=== PATIENT | female | born 1990 | race Caucasian/White ===

== ENCOUNTER 2016-12-09 00:20 | Observation (INO) | payer MEDICARE, MEDICAID ==
--- NOTE | 2016-12-09 00:37 | EDM.PDOC ---
ED HPI GENERAL MEDICAL PROBLEM - General Chief Complaint: General Stated Complaint: Seizures Time Seen by Provider: 12/09/16 00:26 Source of Information: Reports: EMS, EMS Notes Reviewed, RN, RN Notes Reviewed History Limitations: Reports: No Limitations - History of Present Illness INITIAL COMMENTS - FREE TEXT/NARRATIVE: Patient presents to the emergency room at [facility] via ambulance after she had an unwitnessed seizure at home. The patient states about one half hour prior to presentation, she was laying in bed an elderly nauseated. The patient states that she did vomit and started having seizure-like activity. The patient states she is not sure how long the seizure lasted. Patient states she called for help from her caregivers. EMS was then called. The patient states she has a long-standing history of seizures. She states she has several seizures per year. The patient is currently taking Dilantin and Trileptal for her seizures. The patient states she takes her medications as directed. The patient states she has not missed a dose. The patient currently denies any headache. The patient denies any visual field disturbances. The patient only complains of a little bit of back pain which is chronic. The patient states she's had trouble with acid reflux which has developed a small cough. No other focal neurological deficits. Patient denies any chest pain. No shortness of breath. The patient states she does still feel nauseated. Onset Date: 12/08/16 - Related Data Allergies Allergy/AdvReac Type Severity Reaction Status Date / Time No Known Drug Allergies Allergy Other Verified 06/30/16 08:16 Home Meds: Home Meds ARIPiprazole [Abilify] 1 mg PO BEDTIME 11/12/14 [History] Calcium Carbonate [Calcium] 500 mg PO BID 11/12/14 [History] Nitrofurantoin Macrocrystal [Nitrofurantoin] 100 mg PO BEDTIME 11/12/14 [History ] OXcarbazepine [Oxcarbazepine] 900 mg PO BID 11/12/14 [History] Potassium Chloride [Klor-Con M20] 20 meq PO DAILY 11/12/14 [History] Cranberry 1 each PO BEDTIME 01/03/16 [History] Ergocalciferol (Vitamin D2) [Vitamin D2] 2,000 unit PO DAILY 01/03/16 [History] Multivitamin/Iron/Folic Acid [Sentry Tablet] 1 each PO DAILY 01/03/16 [History] Sennosides/Docusate Sodium [Senna Plus Tablet] 1 tab PO BID 01/04/16 [History] Phenytoin 100 mg PO TID #30 cap.er 01/05/16 [Rx] Mirtazapine [Remeron] 30 mg PO BEDTIME 06/30/16 [History] busPIRone [Buspar] 10 mg PO BID 06/30/16 [History] Past Medical History Other HEENT History: legally blind. 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 kyphosis. lordosis. spinal tumors causing spastic quadriparesis Neurological History: Reports: Seizure Other Neuro History: mild mental retardation Other Psychiatric History: mild MR - Past Surgical History Other Neurological Surgeries/Procedures: Brain shunt. Social & Family History - Tobacco Use Smoking Status *Q: Unknown Ever Smoked Used Tobacco, but Quit: No Second Hand Smoke Exposure: No - Alcohol Use Days Per Week of Alcohol Use: 1 Number of Drinks Per Day: 1 Total Drinks Per Week: 1 - Recreational Drug Use Recreational Drug Use: No ED ROS GENERAL - Review of Systems Review Of Systems: See Below Constitutional: Reports: Weakness. Denies: Fever, Chills Respiratory: Reports: Cough. Denies: Shortness of Breath Cardiovascular: Denies: Chest Pain, Palpitations GI/Abdominal: Reports: Nausea, Vomiting. Denies: Abdominal Pain, Diarrhea Skin: Reports: No Symptoms Neurological: Reports: Seizure. Denies: Dizziness, Headache, Numbness, Tingling ED EXAM, GENERAL - Physical Exam Exam: See Below Exam Limited By: No Limitations General Appearance: Alert, No Apparent Distress Eye Exam: Bilateral Eye: EOMI, Normal Inspection, PERRL Head: Atraumatic, Normocephalic Respiratory/Chest: No Respiratory Distress, Lungs Clear, Normal Breath Sounds Cardiovascular: Normal Peripheral Pulses, Regular Rate, Rhythm Peripheral Pulses: 2+: Radial (L), Radial (R) GI/Abdominal: Normal Bowel Sounds, Soft, Non-Tender Extremities: Normal Inspection Neurological: Alert, Oriented Skin Exam: Warm, Dry, Intact, Normal Color, No Rash EKG INTERPRETATION EKG Date: 12/09/16 Time: 01:51 Rhythm: NSR Rate (beats/min): 115 Nursery: normal P-wave: present QRS: normal ST-T: normal QT: normal MD/PQ Interval: 0.18 Comparison: NA - no prior EKG EKG Interpretation Comments: Sinus Tachycardia Nonspecific T wave abnormality Course - Orders/Labs/Meds Orders: Active Orders 24 hr Category Date Time Status EKG 12 Lead [EKG Documentation Completion] [RC] STAT Care 12/09/16 00:40 Active Head wo Cont [CT] Stat Exams 12/09/16 00:45 Taken Sodium Chloride 0.9% [Normal Saline] 1,000 ml Med 12/09/16 00:45 Active IV ASDIRECTED Sodium Chloride 0.9% [Saline Flush] Med 12/09/16 00:40 Active 10 ml FLUSH ASDIRECTED PRN Peripheral IV Insertion Adult [OM.PC] Routine Oth 12/09/16 00:40 Ordered Medication Orders Sodium Chloride (Normal Saline) 1,000 mls @ 999 mls/hr IV ASDIRECTED CARLOS Last Infusion: 12/09/16 01:40 Dose: 0 mls/hr Admin: 12/09/16 00:55 Dose: 999 mls/hr Sodium Chloride (Saline Flush) 10 ml FLUSH ASDIRECTED PRN PRN Reason: Keep Vein Open Labs: Laboratory Tests 12/09/16 12/09/16 Range/Units 00:40 00:40 WBC 11.4 H (4.0-10.0) x10^3/uL RBC 4.35 (4.00-5.50) x10^6/uL Hgb 13.9 (12.0-16.0) g/dL Hct 38.6 (33.0-47.0) % MCV 88.7 D (78.0-93.0) fL MCH 32.0 (26.0-32.0) pg MCHC 36.0 (32.0-36.0) g/dL RDW Coeff of Prerna 11.7 (10.0-15.0) % Plt Count 185 (130-400) x10^3/uL Neut % (Auto) 74.4 (50.0-80.0) % Lymph % (Auto) 14.7 L (25.0-50.0) % [place] % (Auto) 9.7 (2.0-11.0) % Eos % (Auto) 1.0 (0.0-4.0) % Baso % (Auto) 0.2 (0.2-1.2) % Sodium 133 L (136-145) mmol/L Potassium 3.8 (3.5-5.1) mmol/L Chloride 98 (98-107) mmol/L Carbon Dioxide 19 L (21-32) mmol/L BUN 15 (7-18) mg/dL Creatinine 0.7 (0.55-1.02) mg/dL Est Cr Clr Drug Dosing TNP Estimated GFR (MDRD) > 60 Glucose 139 H (74-106) mg/dL Calcium 8.6 (8.5-10.1) mg/dL Phenytoin 12 (10-20) ug/mL Meds: Medications Generic Name Dose Route Start Last Admin Trade Name Freq PRN Reason Stop Dose Admin Sodium Chloride 1,000 mls @ 999 mls/hr 12/09/16 00:45 12/09/16 01:40 Normal Saline IV Infused ASDIRECTED CARLOS Infusion Sodium Chloride 10 ml 12/09/16 00:40 Saline Flush FLUSH ASDIRECTED PRN Keep Vein Open Discontinued Medications Generic Name Dose Route Start Last Admin Trade Name Freq PRN Reason Stop Dose Admin Ketorolac Tromethamine 30 mg 12/09/16 00:59 12/09/16 01:30 Toradol IVPUSH 12/09/16 01:00 30 mg ONETIME ONE Administration Ondansetron HCl 4 mg 12/09/16 01:00 12/09/16 01:28 Zofran IVPUSH 12/09/16 01:01 4 mg ONETIME ONE Administration - Radiology Interpretation Free Text/Narrative:: See scanned report in EMR CT Results Date: 12/09/16 CT Results Time: 02:08 Departure - Departure Time of Disposition: 02:11 Disposition: Home, Self-Care 01 Condition: good Clinical Impression: Seizure disorder - Discharge Information Instructions: Epilepsy Referrals: Seamus Givens MD [Physician] - Forms: ED Department Discharge Additional Instructions: 1. Stay well hydrated and rest 2. All of your tests were normal 3. No change with any medications, continue same without changes 4. Recommend seeing Dr. Givens in the clinic for a follow up - Problem List Review Problem List Initiated/Reviewed/Updated: Yes - My Orders Last 24 Hours: My Active Orders 12/09/16 00:40 EKG 12 Lead [EKG Documentation Completion] [RC] STAT Sodium Chloride 0.9% [Saline Flush] 10 ml FLUSH ASDIRECTED PRN Peripheral IV Insertion Adult [OM.PC] Routine 12/09/16 00:45 Head wo Cont [CT] Stat Sodium Chloride 0.9% [Normal Saline] 1,000 ml IV ASDIRECTED - Assessment/Plan Last 24 Hours: My Active Orders 12/09/16 00:40 EKG 12 Lead [EKG Documentation Completion] [RC] STAT Sodium Chloride 0.9% [Saline Flush] 10 ml FLUSH ASDIRECTED PRN Peripheral IV Insertion Adult [OM.PC] Routine 12/09/16 00:45 Head wo Cont [CT] Stat Sodium Chloride 0.9% [Normal Saline] 1,000 ml IV ASDIRECTED
[2016-12-09] MEDS ORDERED: Sodium Chloride 0.9% 10 ML Syringe FLUSH PRN ×2 (00:40→04:18)
[2016-12-09] MEDS ORDERED: Sodium Chloride 0.9% 1,000 ML IV SCH ×2 (00:45→04:30)
[2016-12-09] MEDS ORDERED: Ketorolac 30 MG/ML SDV IVPUSH ONE (00:59)
[2016-12-09] MEDS ORDERED: Ondansetron 4 MG/2 ML SDV IVPUSH ONE (01:00)
[2016-12-09] MEDS ORDERED: LORazepam 2 MG/ML MDV IVPUSH PRN (04:18)
[2016-12-09] MEDS ORDERED: Ondansetron 4 MG/2 ML SDV IV PRN (04:26)
--- NOTE | 2016-12-09 04:55 | PCM.HP ---
H&P History of Present Illness - General Date of Service: 12/09/16 Admit Problem/Dx: Admission Diagnosis/Problem Admission Diagnosis/Problem Seizure disorder Nausea & Vomiting R/O Aspiration Source of Information: EMS, EMS Notes Reviewed, Old Records, RN, RN Notes Reviewed History Limitations: Reports: Altered Mental Status - History of Present Illness Initial Comments - Free Text/Narative: 12/09/2016 03:52 History is obtained from the EMS crew and the patient's caregiver. The patient was seen by me in the emergency room approximately one hour prior to the patient's current presentation. The patient had been seen in the emergency room for an unwitnessed seizure. The patient's head CT was negative for any acute intracranial process. The patient's blood work was essentially normal outside of a sodium of 133. The patient's Dilantin level was therapeutic at 12. Therefore, the patient was discharged home. According to the EMS crew shortly after the patient returned home, she apparently had a 13 minute seizure, unwitnessed. According to the caregiver, the patient was being checked on when the seizure occurred. The caregiver states that the patient had some sort of oral discharge. EMS was then called. When EMS arrived, the patient was post-ictal and brought to the emergency room. Since the patient was already seen in the emergency room, the patient is a direct admission to the floor. During the patient's ER visit, she did state that she has several seizures per year. The patient is currently taking Dilantin and Trileptal on a daily basis. The patient states that she does not miss any doses. The patient states that she has taken all of her seizure medication today. Onset of Symptoms: Reports: Today Symptom Onset Date: 12/09/16 Symptom Onset Time: 03:00 low back Pain Score (Numeric/FACES): 3 - Related Data Allergies/Adverse Reactions: Allergies Allergy/AdvReac Type Severity Reaction Status Date / Time No Known Drug Allergies Allergy Other Verified 12/09/16 04:22 Home Medications: Home Meds ARIPiprazole [Abilify] 1 mg PO BEDTIME 11/12/14 [History] Calcium Carbonate [Calcium] 500 mg PO BID 11/12/14 [History] Nitrofurantoin Macrocrystal [Nitrofurantoin] 100 mg PO BEDTIME 11/12/14 [History ] OXcarbazepine [Oxcarbazepine] 900 mg PO BID 11/12/14 [History] Potassium Chloride [Klor-Con M20] 20 meq PO DAILY 11/12/14 [History] Cranberry 1 each PO BEDTIME 01/03/16 [History] Ergocalciferol (Vitamin D2) [Vitamin D2] 2,000 unit PO DAILY 01/03/16 [History] Multivitamin/Iron/Folic Acid [Sentry Tablet] 1 each PO DAILY 01/03/16 [History] Sennosides/Docusate Sodium [Senna Plus Tablet] 1 tab PO BID 01/04/16 [History] Phenytoin 100 mg PO TID #30 cap.er 01/05/16 [Rx] Mirtazapine [Remeron] 30 mg PO BEDTIME 06/30/16 [History] busPIRone [Buspar] 10 mg PO BID 06/30/16 [History] Past Medical History Other HEENT History: legally blind. 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 kyphosis. lordosis. spinal tumors causing spastic quadriparesis Neurological History: Reports: Seizure Other Neuro History: mild mental retardation - Past Surgical History Other Neurological Surgeries/Procedures: Brain shunt. Social & Family History - Family History Family Medical History: Noncontributory - Tobacco Use Smoking Status *Q: Never Smoker Tobacco Use Within Last Twelve Months: No Second Hand Smoke Exposure: No - Alcohol Use Days Per Week of Alcohol Use: 0 Number of Drinks Per Day: 0 Total Drinks Per Week: 0 Alcohol Use Frequency: Socially - Recreational Drug Use Recreational Drug Use: No Drug Use in Last 12 Months: No - Living Situation & Occupation Living situation: Reports: Extended Care Facility Occupation: Disabled H&P Review of Systems - Review of Systems: Review Of Systems: ROS reveals no pertinent complaints other than HPI. Exam - Exam Exam: See Below - Vital Signs Vital Signs: Last Vital Signs Temp 37.1 C 12/09/16 00:20 Pulse 124 H 12/09/16 00:20 Resp 20 12/09/16 00:20 BP 115/78 12/09/16 00:20 Pulse Ox 96 12/09/16 00:20 Weight: 59.874 kg - Exam Quality Assessment: Supplemental Oxygen, Urinary Catheter General: Lethargic HEENT: Conjunctiva Clear, PERRLA Neck: Supple Lungs: Clear to Auscultation, Normal Respiratory Effort Cardiovascular: Regular Rate, Regular Rhythm, Normal S1, Normal S2 Abdomen: Soft, Hypoactive Bowel Sounds Extremities: Normal Inspection Peripheral Pulses: 2+: Radial (L), Radial (R) Skin: Warm, Dry, Intact Neuro Extensive - Mental Status: Slow Response to Commands, Other (Patient is able to follow commands but somewhat slow. The patient is aware of her surroundings and does that she is in the hospital. The patient does not remember the seizure.) - Patient Data Result Diagrams: 12/09/16 00:40 12/09/16 00:40 *Q Meaningful Use (ADM) - VTE *Q VTE Criteria *Q: VTE Mechanical Contraindications *Q: Confused Consciousness - Stroke *Q Stroke Criteria *Q: - AMI *Q AMI Criteria *Q: - Problem List (1) Seizure disorder SNOMED Code(s): 264258655 ICD Code: G40.909 - EPILEPSY, UNSP, NOT INTRACTABLE, WITHOUT STATUS EPILEPTICUS Status: Acute Priority: High Current Visit: Yes Onset Date: ~12/09/16 (2) Hyponatremia SNOMED Code(s): 90366543 ICD Code: E87.1 - HYPO-OSMOLALITY AND HYPONATREMIA Status: Chronic Priority: Medium Current Visit: Yes (3) Aspiration of vomitus SNOMED Code(s): 07428135 ICD Code: T17.910A - GASTRIC CONTENTS IN RESP TRACT, PART UNSP CAUSE ASPHYX, INIT Status: Acute Priority: High Current Visit: Yes Onset Date: ~ Qualifiers: Encounter type: initial encounter Qualified Code(s): T17.910A - Gastric contents in respiratory tract, part unspecified causing asphyxiation, initial encounter Problem List Initiated/Reviewed/Updated: Yes Orders Last 24hrs: Active Orders 24 hr Category Date Time Status Patient Status [ADT] Routine ADT 12/09/16 04:26 Active Aspiration Precautions [RC] ASDIRECTED Care 12/09/16 04:24 Active Height and Weight [RC] UPON Care 12/09/16 04:26 Active Insert Mejia Catheter [Insert Urinary Catheter] [OM.PC] Care 12/09/16 04:30 Ordered Q24H Intake and Output [RC] QSHIFT Care 12/09/16 04:27 Active May Shower [RC] ASDIRECTED Care 12/09/16 04:26 Active Oxygen Therapy [RC] PRN Care 12/09/16 04:26 Active Up With Assistance [RC] ASDIRECTED Care 12/09/16 04:26 Active Urinary Catheter Assessment [RC] ASDIRECTED Care 12/09/16 04:24 Active VTE/DVT Education [RC] PER UNIT ROUTINE Care 12/09/16 04:26 Active Vital Signs [RC] Q4H Care 12/09/16 04:26 Active 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 OPERATOR Evaluation and Treatment [CONS] Routine Cons 12/09/16 04:26 Active Fluid Restriction [DIET] Diet 12/09/16 Breakfast Active Chest 1V Frontal [CR] Routine Exams 12/09/16 07:00 Ordered BASIC METABOLIC PANEL,BMP [CHEM] Routine Lab 12/09/16 05:11 Ordered CBC WITH AUTO DIFF [HEME] Routine Lab 12/09/16 05:11 Ordered CRP [C-REACTIVE PROTEIN] [CHEM] Routine Lab 12/09/16 05:11 Ordered CULTURE BLOOD [BC] Stat Lab 12/09/16 05:11 Ordered CULTURE BLOOD [BC] Stat Lab 12/09/16 05:11 Ordered LACTIC ACID [CHEM] Routine Lab 12/09/16 05:11 Ordered STREP SCRN A RAPID W CULT CONF [RM] Routine Lab 12/09/16 05:11 Uncollected UA W/MICROSCOPIC [URIN] Routine Lab 12/09/16 05:11 Uncollected LORazepam [Ativan] Med 12/09/16 04:18 Active 1 mg IVPUSH Q1H PRN Ondansetron [Zofran] Med 12/09/16 04:26 Active 4 mg IV Q6H PRN Pantoprazole [ProTONIX IV] Med 12/09/16 05:00 Active 40 mg IVPUSH Q12H Sodium Chloride 0.9% [Normal Saline] 1,000 ml Med 12/09/16 04:30 Active IV ASDIRECTED Sodium Chloride 0.9% [Saline Flush] Med 12/09/16 04:18 Active 10 ml FLUSH ASDIRECTED PRN Blood Culture x2 Reflex Set [OM.PC] Stat Oth 12/09/16 05:11 Ordered Peripheral IV Insertion Adult [OM.PC] Routine Oth 12/09/16 04:18 Ordered Seizure Precautions [OM.PC] Routine Oth 12/09/16 04:24 Ordered Resuscitation Status Routine Resus Stat 12/09/16 04:26 Ordered Medication Orders Sodium Chloride (Normal Saline) 1,000 mls @ 999 mls/hr IV ASDIRECTED CARLOS Last Infusion: 12/09/16 01:40 Dose: 0 mls/hr Admin: 12/09/16 00:55 Dose: 999 mls/hr Sodium Chloride (Normal Saline) 1,000 mls @ 100 mls/hr IV ASDIRECTED CARLOS Lorazepam (Ativan) 1 mg IVPUSH Q1H PRN PRN Reason: Seizures Ondansetron HCl (Zofran) 4 mg IV Q6H PRN PRN Reason: Nausea/Vomiting Pantoprazole Sodium (Protonix Iv) 40 mg IVPUSH Q12H CARLOS Sodium Chloride (Saline Flush) 10 ml FLUSH ASDIRECTED PRN PRN Reason: Keep Vein Open Sodium Chloride (Saline Flush) 10 ml FLUSH ASDIRECTED PRN PRN Reason: Keep Vein Open Assessment/Plan Comment:: 26-year-old female with a past medical history of seizures, mild mental retardation, hydrocephalus, is admitted to the observation unit for seizure activity, rule out aspiration, hyponatremia. We will not repeat a CT scan of the head since year he had one earlier. We will place the patient on IV fluid for rehydration. The patient will be on seizure precautions. We will place a Mejia catheter and do to incontinence. We will recheck abnormal lab work in the morning along with a UA. We will have the patient seen by speech therapy. The patient is a full code. The patient will be transferred to a higher level of care should the need arise. We will continue all home medications without any changes. The patient will have lorazepam as needed for any seizure activity.
[2016-12-09] MEDS ORDERED: Pantoprazole 40 MG Vial IVPUSH SCH (05:00)
[2016-12-09 06:56] LABS: CHLORIDE,CL 102 mmol/L (98-107); SODIUM,NA 135 mmol/L (136-145)
[2016-12-09] MEDS ORDERED: Penicillin G Benzathine/Procaine 900-300 1.2 Millunits/2 ML Syringe IM ONE (07:26)
[2016-12-09] MEDS ORDERED: Ampicillin 1 GM in Sodium Chloride 0.9% 100 ML IV ONE (07:27)
[2016-12-09] MEDS ORDERED: Potassium Chloride 20 MEQ Tab.ER PO SCH (08:00)
[2016-12-09] MEDS ORDERED: OXcarbazepine 300 MG Tab PO SCH (08:00)
[2016-12-09] MEDS ORDERED: ARIPIPRAZOLE 5 MG PO SCH (08:00)
[2016-12-09] MEDS: Phenytoin 100 MG Cap.ER PO SCH ×2 (09:33→11:39)
[2016-12-09 10:25] VITALS: BP 98/65
[2016-12-09] MEDS ORDERED: Nitrofurantoin Macrocrystal 50 MG Cap PO SCH (20:00)
[2016-12-09] MEDS ORDERED: PHENYTOIN PO SCH (20:00)
--- NOTE | 2016-12-09 23:26 | DISCH ---
ADMITTING DIAGNOSES: 1. Acute on chronic seizure activity. 2. Mild hyponatremia. DISCHARGE DIAGNOSES: 1. Acute on chronic seizure activity. 2. Group A strep pharyngitis. ADMITTING PROVIDER: MIMI Spivey. DISCHARGING PROVIDER: Ramon Aaron PA-C. SUBJECTIVE: The patient was admitted early this morning with following 2 seizures, each 1 lasting greater than 10 minutes. She does have a history of recurrent seizure activity and has a history of a low pressure hydrocephalus and neurofibromatosis. She does reside in a halfway. Protocol is for the patient to be brought to the hospital if she has a seizure that lasts greater than 5 minutes. The patient was hyponatremic and started on normal saline and her sodium has improved. She does have a history of chronic hyponatremia. She has not exhibited any further seizure activity since the onset of these episodes. She was found to have strep pharyngitis, which likely lowered her seizure threshold. Again, she did not exhibit any seizure activity since the onset of the symptoms earlier this morning and last evening. PHYSICAL EXAMINATION: General: This is a 26-year-old female patient, who is in no acute distress. Vital Signs: Blood pressure is 106/58, heart rate is 101, temperature is 37.2, respiratory rate is 20, and O2 saturations 98%. Skin: Warm, pink, and dry. HEENT: Eyes, PERRLA. Extraocular movements are intact. Lungs: Clear to auscultation. Heart: Regular rate and rhythm. Abdomen: Soft, nontender. Neurologic: She is alert and answers all questions appropriately. Her speech is fluent. She has a normal strength. Her motor function in both her upper and lower extremities is unchanged from her normal. LABORATORY DATA: WBCs 10.7, hemoglobin is 13.0, platelets 188, sodium is 135, potassium is 4.0, chloride is 102, bicarb is 24, BUN is 13, creatinine is 0.5. GFR is greater than 60. Glucose is 100. Lactic acid is 1.4, calcium is 8.2, C- reactive protein is 4.2. Urinalysis was obtained and was negative. Chest x-ray did not reveal any acute pathology and then again the patient's strep pharyngitis was positive this morning. DISCHARGE CONDITION: Good. DISPOSITION: Back to the halfway. DISCHARGE INSTRUCTIONS: Return to the ER if the patient exhibits any prolonged seizure activity. They were advised that she is at increased risk for seizure activity in the next several days, as she does have strep pharyngitis, which will of lower her seizure threshold and put her at risk for recurrent seizure activity. DISCHARGE MEDICATIONS: Continue home medications. In addition, we will add amoxicillin 500 mg twice daily for 10 days. FOLLOWUP: In 1 week in clinic. MWK: 12/09/2016 15:25:55 MODL: 12/09/2016 23:21:45 /[id number]
== END 2016-12-09 13:55 ==
LOC: VM.ED 00:20 → VM.MS 03:29 → UNDOADMOB 03:29 → VM.ED 03:52 → VM.MS 04:04 → UNDOADMOB 04:04 → UNDODISOB 13:55 → EDSTATUS 14:00
PROVIDERS: ADMIT Nurse Practitioner Family; ATTEND Nurse Practitioner Family
DX: R56.9 Unspecified convulsions (principal); J02.0 Streptococcal pharyngitis; B95.0 Streptococcus, group A, as the cause of diseases classified elsewhere; E87.1 Hypo-osmolality and hyponatremia; T17.910A Gastric contents in respiratory tract, part unspecified causing asphyxiation, initial encounter; Z79.2 Long term (current) use of antibiotics; Z79.899 Other long term (current) drug therapy; G40.909 Epilepsy, unspecified, not intractable, without status epilepticus
CPT/HCPCS: 71010; 80048; 81001; 83605; 85025; 86140; 87040; 87880; 92610; 96372; 96374; 99235; A9270; C9113; G0378; J0558; 36415; 70450; 80185; 93005; 96361; 96375; 99285; J1885; J2405; J7030

== ENCOUNTER 2016-12-09 00:20 | Emergency (ER) | payer MEDICARE, MEDICAID ==
[~2016-12-09 00:20] MED LIST: Ketorolac 30 MG/ML SDV IVPUSH ONE; Ondansetron 4 MG/2 ML SDV IVPUSH ONE; Sodium Chloride 0.9% 1,000 ML IV SCH; Sodium Chloride 0.9% 10 ML Syringe FLUSH PRN
[2016-12-09 01:16] LABS: CHLORIDE,CL 98 mmol/L (98-107); SODIUM,NA 133 mmol/L (136-145)
== END 2016-12-09 02:05 | disposition home or self-care (01) ==
LOC: VM.ED 00:20
DX: G40.909 Epilepsy, unspecified, not intractable, without status epilepticus (principal); Z79.899 Other long term (current) drug therapy
CPT/HCPCS: 36415; 70450; 80048; 80185; 85025; 93005; 96361; 96374; 96375; 99285; J1885; J2405; J7030; 71010

== ENCOUNTER 2017-05-04 02:40 | Emergency (ER) | payer MEDICARE, MEDICAID ==
[2017-05-04 02:50] VITALS: BP 116/78
[2017-05-04] MEDS ORDERED: Sodium Chloride 0.9% 10 ML Syringe FLUSH PRN (02:59)
[2017-05-04] MEDS ORDERED: LORazepam 2 MG/ML SDV IVPUSH ONE (03:00)
[2017-05-04 04:00] LABS: CHLORIDE,CL 101 mmol/L (98-107); SODIUM,NA 136 mmol/L (136-145)
--- NOTE | 2017-05-04 04:55 | EDM.PDOC ---
ED HPI GENERAL MEDICAL PROBLEM - General Chief Complaint: General Stated Complaint: Seizure Time Seen by Provider: 05/04/17 02:45 Source of Information: Reports: Patient, Other (longterm staff) History Limitations: Reports: No Limitations - History of Present Illness INITIAL COMMENTS - FREE TEXT/NARRATIVE: Pt. had a "full body" seizure lasting approx. 6 min. 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 Pt. has having issues with hyponatremia secondary to oxcarbazepine, but this has resolved since it was decreased (an unknown antidepressant was also discontinued due to hyponatremia as well). Staff states that she was asleep at onset of the seizure and did not appear to be postictal. She states that she did not recently strike her head. She has not been experiencing any fever, chills, or other complaints. Onset: Today Location: Reports: Generalized - Related Data Allergies Allergy/AdvReac Type Severity Reaction Status Date / Time No Known Drug Allergies Allergy Other Verified 05/04/17 02:50 Home Meds: Home Meds Calcium Carbonate [Calcium] 500 mg PO BID 11/12/14 [History] Nitrofurantoin Macrocrystal [Nitrofurantoin] 100 mg PO BEDTIME 11/12/14 [History ] OXcarbazepine [Oxcarbazepine] 600 mg PO BID 11/12/14 [History] Potassium Chloride [Klor-Con M20] 20 meq PO DAILY 11/12/14 [History] Cranberry 1 each PO BEDTIME 01/03/16 [History] Ergocalciferol (Vitamin D2) [Vitamin D2] 2,000 unit PO DAILY 01/03/16 [History] Multivitamin/Iron/Folic Acid [Sentry Tablet] 1 each PO DAILY 01/03/16 [History] Sennosides/Docusate Sodium [Senna Plus Tablet] 1 tab PO BID 01/04/16 [History] Phenytoin 100 mg PO TID #30 cap.er 01/05/16 [Rx] ARIPiprazole [Abilify] 5 mg PO DAILY 12/09/16 [History] Phenytoin [Dilantin] 60 mg PO BEDTIME 12/09/16 [History] Polyethylene Glycol 3350 [MiraLAX] 17 gm PO ASDIRECTED 12/09/16 [History] Past Medical History HEENT History: Reports: Impaired Vision Other HEENT History: legally blind. 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 kyphosis. lordosis. spinal tumors causing spastic quadriparesis Neurological History: Reports: Seizure Other Neuro History: mild mental retardation Other Psychiatric History: mild MR - Past Surgical History Other Neurological Surgeries/Procedures: Brain shunt. Social & Family History - Family History Family Medical History: Noncontributory - Tobacco Use Smoking Status *Q: Never Smoker Used Tobacco, but Quit: No Second Hand Smoke Exposure: No - Alcohol Use Days Per Week of Alcohol Use: 0 Number of Drinks Per Day: 0 Total Drinks Per Week: 0 - Recreational Drug Use Recreational Drug Use: No Drug Use in Last 12 Months: No - Living Situation & Occupation Living situation: Reports: Extended Care Facility Occupation: Disabled ED ROS GENERAL - Review of Systems Review Of Systems: See Below Constitutional: Reports: No Symptoms HEENT: Reports: No Symptoms Respiratory: Reports: No Symptoms Cardiovascular: Reports: No Symptoms Endocrine: Reports: No Symptoms GI/Abdominal: Reports: No Symptoms : Reports: No Symptoms Musculoskeletal: Reports: No Symptoms Skin: Reports: No Symptoms Neurological: Reports: Seizure (6 min., full body seizure) Psychiatric: Reports: No Symptoms Hematologic/Lymphatic: Reports: No Symptoms Immunologic: Reports: No Symptoms ED EXAM, GENERAL - Physical Exam Exam: See Below Exam Limited By: No Limitations General Appearance: Alert Eye Exam: Bilateral Eye: EOMI, PERRL Ears: Normal External Exam, Hearing Grossly Normal Nose: Normal Inspection, Normal Mucosa, No Blood Throat/Mouth: Normal Inspection, Normal Lips, Normal Teeth, Normal Gums, Normal Oropharynx, Normal Voice, No Airway Compromise Head: Atraumatic, Normocephalic Neck: Normal Inspection, Supple, Non-Tender, Full Range of Motion Respiratory/Chest: No Respiratory Distress, Lungs Clear, Normal Breath Sounds, No Accessory Muscle Use, Chest Non-Tender Cardiovascular: Normal Peripheral Pulses, Regular Rate, Rhythm, No Edema, No JVD , No Murmur, No Rub GI/Abdominal: Normal Bowel Sounds, Soft, Non-Tender, No Organomegaly, No Distention, No Mass Extremities: Normal Inspection, Normal Range of Motion, Non-Tender, Normal Capillary Refill Neurological: Alert, Oriented, CN II-XII Intact, Normal Cognition, Normal Reflexes, No Motor/Sensory Deficits Psychiatric: Normal Affect, Normal Mood Skin Exam: Warm, Dry, Intact, Normal Color Lymphatic: No Adenopathy Course - Vital Signs Last Recorded V/S: Last Vital Signs Temp 36.4 C 05/04/17 02:41 Pulse 95 05/04/17 02:41 Resp 16 05/04/17 02:41 BP 116/78 05/04/17 02:41 Pulse Ox 97 05/04/17 02:41 - Orders/Labs/Meds Orders: Active Orders 24 hr Category Date Time Status Head wo Cont [CT] Stat Exams 05/04/17 02:55 Taken CULTURE BLOOD [BC] Stat Lab 05/04/17 03:27 Received CULTURE BLOOD [BC] Stat Lab 05/04/17 03:35 Received Sodium Chloride 0.9% [Saline Flush] Med 05/04/17 02:59 Active 10 ml FLUSH ASDIRECTED PRN Blood Culture x2 Reflex Set [OM.PC] Stat Oth 05/04/17 02:59 Ordered Peripheral IV Insertion Adult [OM.PC] Routine Oth 05/04/17 03:00 Ordered Medication Orders Sodium Chloride (Saline Flush) 10 ml FLUSH ASDIRECTED PRN PRN Reason: Keep Vein Open Labs: Laboratory Tests 05/04/17 05/04/17 05/04/17 Range/Units 03:27 03:27 03:27 WBC 5.9 (4.0-10.0) x10^3/uL RBC 4.25 (4.00-5.50) x10^6/uL Hgb 13.8 (12.0-16.0) g/dL Hct 38.0 (33.0-47.0) % MCV 89.4 (78.0-93.0) fL MCH 32.5 H (26.0-32.0) pg MCHC 36.3 H (32.0-36.0) g/dL RDW Coeff of Prerna 11.2 (10.0-15.0) % Plt Count 218 (130-400) x10^3/uL Neut % (Auto) 60.8 (50.0-80.0) % Lymph % (Auto) 26.9 (25.0-50.0) % [place] % (Auto) 10.3 (2.0-11.0) % Eos % (Auto) 1.5 (0.0-4.0) % Baso % (Auto) 0.5 (0.2-1.2) % Sodium 136 (136-145) mmol/L Potassium 4.1 (3.5-5.1) mmol/L Chloride 101 (98-107) mmol/L Carbon Dioxide 23 (21-32) mmol/L BUN 17 (7-18) mg/dL Creatinine 0.6 (0.55-1.02) mg/dL Est Cr Clr Drug Dosing TNP Estimated GFR (MDRD) > 60 Glucose 93 (74-106) mg/dL Lactic Acid 3.4 H (0.4-2.0) mmol/L Calcium 8.9 (8.5-10.1) mg/dL Corrected Calcium 9.30 (8.5-10.1) mg/dL Total Bilirubin 0.3 (0.2-1.0) mg/dL AST 15 (15-37) U/L ALT 41 (14-59) U/L Alkaline Phosphatase 133 H (46-116) U/L C-Reactive Protein < 0.2 (<=0.9) mg/dL Total Protein 6.6 (6.4-8.2) g/dL Albumin 3.5 (3.4-5.0) g/dL Globulin 3.1 Albumin/Globulin Ratio 1.13 Urine Color (YELLOW) Urine Appearance (CLEAR) Urine pH (5.0-8.0) Ur Specific [place] Urine Protein (NEGATIVE) mg/dL Urine Glucose (UA) (NEGATIVE) mg/dL Urine Ketones (NEGATIVE) mg/dL Urine Occult Blood (NEGATIVE) Urine Nitrite (NEGATIVE) Urine Bilirubin (NEGATIVE) Urine Urobilinogen (0.2) EU/dL Ur Leukocyte Esterase (NEGATIVE) Urine RBC (NOT SEEN) /HPF Urine WBC (NOT SEEN) /HPF Ur Squamous Epith Cells (NEGATIVE) /HPF Ur Renal Epithelial Cell (NEGATIVE) /HPF Urine Bacteria (NEGATIVE) /HPF Urine Mucus (NEGATIVE) /LPF Phenytoin 13 (10-20) ug/mL 05/04/17 Range/Units 03:55 WBC (4.0-10.0) x10^3/uL RBC (4.00-5.50) x10^6/uL Hgb (12.0-16.0) g/dL Hct (33.0-47.0) % MCV (78.0-93.0) fL MCH (26.0-32.0) pg MCHC (32.0-36.0) g/dL RDW Coeff of Prerna (10.0-15.0) % Plt Count (130-400) x10^3/uL Neut % (Auto) (50.0-80.0) % Lymph % (Auto) (25.0-50.0) % [place] % (Auto) (2.0-11.0) % Eos % (Auto) (0.0-4.0) % Baso % (Auto) (0.2-1.2) % Sodium (136-145) mmol/L Potassium (3.5-5.1) mmol/L Chloride (98-107) mmol/L Carbon Dioxide (21-32) mmol/L BUN (7-18) mg/dL Creatinine (0.55-1.02) mg/dL Est Cr Clr Drug Dosing Estimated GFR (MDRD) Glucose (74-106) mg/dL Lactic Acid (0.4-2.0) mmol/L Calcium (8.5-10.1) mg/dL Corrected Calcium (8.5-10.1) mg/dL Total Bilirubin (0.2-1.0) mg/dL AST (15-37) U/L ALT (14-59) U/L Alkaline Phosphatase (46-116) U/L C-Reactive Protein (<=0.9) mg/dL Total Protein (6.4-8.2) g/dL Albumin (3.4-5.0) g/dL Globulin Albumin/Globulin Ratio Urine Color Yellow (YELLOW) Urine Appearance Cloudy H (CLEAR) Urine pH 5.0 (5.0-8.0) Ur Specific [place] >=1.030 Urine Protein 30 H (NEGATIVE) mg/dL Urine Glucose (UA) Negative (NEGATIVE) mg/dL Urine Ketones Negative (NEGATIVE) mg/dL Urine Occult Blood Moderate H (NEGATIVE) Urine Nitrite Negative (NEGATIVE) Urine Bilirubin Negative (NEGATIVE) Urine Urobilinogen 0.2 (0.2) EU/dL Ur Leukocyte Esterase Negative (NEGATIVE) Urine RBC 40-50 H (NOT SEEN) /HPF Urine WBC 0-5 (NOT SEEN) /HPF Ur Squamous Epith Cells Moderate H (NEGATIVE) /HPF Ur Renal Epithelial Cell Rare H (NEGATIVE) /HPF Urine Bacteria Not seen (NEGATIVE) /HPF Urine Mucus Many H (NEGATIVE) /LPF Phenytoin (10-20) ug/mL Meds: Medications Generic Name Dose Route Start Last Admin Trade Name Jannie PRN Reason Stop Dose Admin Sodium Chloride 10 ml 05/04/17 02:59 Saline Flush FLUSH ASDIRECTED PRN Keep Vein Open Discontinued Medications Generic Name Dose Route Start Last Admin Trade Name Freanita PRN Reason Stop Dose Admin Lorazepam 1 mg 05/04/17 03:00 05/04/17 03:33 Ativan IVPUSH 05/04/17 03:01 1 mg ONETIME ONE Administration - Radiology Interpretation Free Text/Narrative:: CT brain without contrast was negative for acute pathology Departure - Departure Time of Disposition: 05:30 Disposition: DC/Tfer to [facility] 61 Condition: Good Clinical Impression: Seizure - Discharge Information Instructions: Seizure, Adult, [id number] Referrals: PCP,Unobtain [Primary Care Provider] - Forms: ED Department Discharge Additional Instructions: Ativan 0.5mg three times daily for 3 days Increase oxcarbazepine to 750mg twice daily Follow-up in clinic or with neurology in the next 7-10 days Return to ER if recurrence of seizures lasting longer than 5 min. - Problem List & Annotations (1) Seizure SNOMED Code(s): 98840122 Code(s): R56.9 - UNSPECIFIED CONVULSIONS Status: Acute Current Visit: Yes - My Orders Last 24 Hours: My Active Orders 05/04/17 02:55 Head wo Cont [CT] Stat 05/04/17 02:59 Sodium Chloride 0.9% [Saline Flush] 10 ml FLUSH ASDIRECTED PRN Blood Culture x2 Reflex Set [OM.PC] Stat 05/04/17 03:00 Peripheral IV Insertion Adult [OM.PC] Routine 05/04/17 03:27 CULTURE BLOOD [BC] Stat 05/04/17 03:35 CULTURE BLOOD [BC] Stat - Assessment/Plan Last 24 Hours: My Active Orders 05/04/17 02:55 Head wo Cont [CT] Stat 05/04/17 02:59 Sodium Chloride 0.9% [Saline Flush] 10 ml FLUSH ASDIRECTED PRN Blood Culture x2 Reflex Set [OM.PC] Stat 05/04/17 03:00 Peripheral IV Insertion Adult [OM.PC] Routine 05/04/17 03:27 CULTURE BLOOD [BC] Stat 05/04/17 03:35 CULTURE BLOOD [BC] Stat Assessment:: seizure activity Plan: Ativan 0.5mg three times daily for 3 days Increase oxcarbazepine to 750mg twice daily Follow-up in clinic or with neurology in the next 7-10 days Return to ER if recurrence of seizures lasting longer than 5 min.
== END 2017-05-04 05:50 ==
LOC: VM.ED 02:40
DX: R56.9 Unspecified convulsions (principal); Z79.899 Other long term (current) drug therapy
CPT/HCPCS: 36415; 70450; 80053; 80185; 81001; 83605; 85025; 86140; 87040; 96374; 99285; J2060; 99283-GF

== ENCOUNTER 2017-09-07 02:57 | Emergency (ER) | payer MEDICARE, MEDICAID ==
--- NOTE | 2017-09-07 03:11 | EDM.PDOC ---
ED HPI GENERAL MEDICAL PROBLEM - General Chief Complaint: Neurological Problem Stated Complaint: Seizure Time Seen by Provider: 09/07/17 03:05 Source of Information: Reports: Patient, Other History Limitations: Reports: No Limitations - History of Present Illness INITIAL COMMENTS - FREE TEXT/NARRATIVE: Patient is brought in via EMS after a seizure. She does have a time protocol for coming to the emergency department, however, this was not followed due to new staff not knowing the guidelines. She has no complaints other than that she is tired. She is post ictal. Normal procedures are to bring her to the ED if her seizure lasts for 5 minutes or more. She did recently have a nerve stimulator placed. Onset: Today, Sudden Location: Reports: Generalized Associated Symptoms: Reports: No Other Symptoms - Related Data Allergies Allergy/AdvReac Type Severity Reaction Status Date / Time No Known Drug Allergies Allergy Other Verified 09/07/17 03:28 Home Meds: Home Meds Calcium Carbonate [Calcium] 500 mg PO BID 11/12/14 [History] Nitrofurantoin Macrocrystal [Nitrofurantoin] 100 mg PO BEDTIME 11/12/14 [History ] OXcarbazepine [Oxcarbazepine] 600 mg PO BID 11/12/14 [History] Potassium Chloride [Klor-Con M20] 20 meq PO DAILY 11/12/14 [History] Cranberry 1 each PO BEDTIME 01/03/16 [History] Ergocalciferol (Vitamin D2) [Vitamin D2] 2,000 unit PO DAILY 01/03/16 [History] Multivitamin/Iron/Folic Acid [Sentry Tablet] 1 each PO DAILY 01/03/16 [History] Sennosides/Docusate Sodium [Senna Plus Tablet] 1 tab PO BID 01/04/16 [History] Phenytoin 100 mg PO TID #30 cap.er 01/05/16 [Rx] ARIPiprazole [Abilify] 5 mg PO DAILY 12/09/16 [History] Phenytoin [Dilantin] 60 mg PO BEDTIME 12/09/16 [History] Polyethylene Glycol 3350 [MiraLAX] 17 gm PO ASDIRECTED 12/09/16 [History] Past Medical History HEENT History: Reports: Impaired Vision Other HEENT History: legally blind. 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 kyphosis. lordosis. spinal tumors causing spastic quadriparesis Neurological History: Reports: Seizure Other Neuro History: mild mental retardation Other Psychiatric History: mild MR - Past Surgical History Other Neurological Surgeries/Procedures: Brain shunt. Social & Family History - Family History Family Medical History: Noncontributory - Tobacco Use Smoking Status *Q: Never Smoker Used Tobacco, but Quit: No Second Hand Smoke Exposure: No - Alcohol Use Days Per Week of Alcohol Use: 0 Number of Drinks Per Day: 0 Total Drinks Per Week: 0 - Recreational Drug Use Recreational Drug Use: No Drug Use in Last 12 Months: No - Living Situation & Occupation Living situation: Reports: Extended Care Facility Occupation: Disabled ED ROS GENERAL - Review of Systems Review Of Systems: See Below Constitutional: Reports: No Symptoms HEENT: Reports: No Symptoms Respiratory: Reports: No Symptoms Cardiovascular: Reports: No Symptoms Endocrine: Reports: No Symptoms GI/Abdominal: Reports: No Symptoms : Reports: No Symptoms Musculoskeletal: Reports: No Symptoms Skin: Reports: No Symptoms Neurological: Reports: No Symptoms Psychiatric: Reports: No Symptoms Hematologic/Lymphatic: Reports: No Symptoms Immunologic: Reports: No Symptoms - Physical Exam Exam: See Below Exam Limited By: No Limitations General Appearance: Alert, WD/WN, No Apparent Distress Eye Exam: Bilateral Eye: EOMI, PERRL Ears: Normal TMs Head Exam: Atraumatic, Normocephalic Neck: Normal Inspection, Supple, Non-Tender, Full Range of Motion Respiratory/Chest: No Respiratory Distress, Lungs Clear, Normal Breath Sounds, No Accessory Muscle Use, Chest Non-Tender Cardiovascular: Normal Peripheral Pulses, Regular Rate, Rhythm, No Edema, No Gallop, No JVD, No Murmur, No Rub GI/Abdominal: Normal Bowel Sounds, Soft, Non-Tender, No Organomegaly, No Distention, No Abnormal Bruit, No Mass Neuro Exam (Abbreviated): Alert, Oriented, CN II-XII Intact, Normal Cognition, Normal Gait, Normal Reflexes, No Motor/Sensory Deficits Extremities: Normal Inspection, Normal Range of Motion, Non-Tender, No Pedal Edema, Normal Capillary Refill Psychiatric: Normal Affect, Normal Mood Skin Exam: Warm, Dry, Intact, Normal Color, No Rash Course - Vital Signs Last Recorded V/S: Last Vital Signs Temp 37.3 C 09/07/17 02:57 Pulse 90 09/07/17 02:57 Resp 16 09/07/17 02:57 BP 109/68 09/07/17 02:57 Pulse Ox 97 09/07/17 02:57 Departure - Departure Time of Disposition: 03:15 Disposition: Home, Self-Care 01 Condition: Good Clinical Impression: Generalized convulsive epilepsy - Discharge Information Instructions: Seizure, Adult, [id number] Referrals: PCP,Unobtain [Primary Care Provider] - Forms: ED Department Discharge Additional Instructions: Return to the ED if you have additional seizure activity Follow up with your primary doctor as needed to address additional seizure activity Please stay well hydrated and manage your medications Call with any questions or concerns - Problem List & Annotations (1) Seizure disorder SNOMED Code(s): 332267057 Code(s): G40.909 - EPILEPSY, UNSP, NOT INTRACTABLE, WITHOUT STATUS EPILEPTICUS Status: Acute Priority: Low Onset Date: ~12/09/16 - Problem List Review Problem List Initiated/Reviewed/Updated: Yes - Assessment/Plan Assessment:: seizure Plan: Return to the ED if you have additional seizure activity Follow up with your primary doctor as needed to address additional seizure activity Please stay well hydrated and manage your medications Call with any questions or concerns
[2017-09-07 03:28] VITALS: BP 109/68
== END 2017-09-07 03:20 | disposition home or self-care (01) ==
LOC: VM.ED 02:57
DX: G40.409 Other generalized epilepsy and epileptic syndromes, not intractable, without status epilepticus (principal); Z79.899 Other long term (current) drug therapy
CPT/HCPCS: 99284

== ENCOUNTER 2017-12-29 00:05 | Emergency (ER) | payer MEDICARE, MEDICAID ==
[2017-12-29 00:09] VITALS: BP 115/76
--- NOTE | 2017-12-29 00:18 | EDM.PDOC ---
ED HPI GENERAL MEDICAL PROBLEM - General Chief Complaint: Neurological Problem Stated Complaint: SEIZURE Time Seen by Provider: 12/29/17 00:09 Source of Information: Reports: Patient, Other History Limitations: Reports: No Limitations - History of Present Illness INITIAL COMMENTS - FREE TEXT/NARRATIVE: Patient with known seizure disorder and VNS device had a 6-7 minute seizure. [facility] policy for some individuals is to have them looked over if more than a 5 minute seizure. She has no complaints and is post ictal. Answers questions appropriately and is alert. Is unable to say when her last prior seizure was but states that it was some time ago. Takes dilantin, trileptal and nitrofurantoin for seizure control. Primary is Dr. Givens. She has no complaints of pain. No fall as she was in bed during seizure. Onset: Today, Sudden Duration: Minutes: (6-7) Severity: Moderate Improves with: Reports: None Worsens with: Reports: None Associated Symptoms: Reports: No Other Symptoms - Related Data Allergies Allergy/AdvReac Type Severity Reaction Status Date / Time No Known Drug Allergies Allergy Other Verified 12/29/17 00:14 Home Meds: Home Meds Calcium Carbonate [Calcium] 500 mg PO BID 11/12/14 [History] Nitrofurantoin Macrocrystal [Nitrofurantoin] 100 mg PO BEDTIME 11/12/14 [History ] OXcarbazepine [Oxcarbazepine] 600 mg PO BID 11/12/14 [History] Potassium Chloride [Klor-Con M20] 20 meq PO DAILY 11/12/14 [History] Cranberry 1 each PO BEDTIME 01/03/16 [History] Ergocalciferol (Vitamin D2) [Vitamin D2] 2,000 unit PO DAILY 01/03/16 [History] Multivitamin/Iron/Folic Acid [Sentry Tablet] 1 each PO DAILY 01/03/16 [History] Sennosides/Docusate Sodium [Senna Plus Tablet] 1 tab PO BID 01/04/16 [History] Phenytoin 100 mg PO TID #30 cap.er 01/05/16 [Rx] ARIPiprazole [Abilify] 5 mg PO DAILY 12/09/16 [History] Polyethylene Glycol 3350 [MiraLAX] 17 gm PO ASDIRECTED 12/09/16 [History] Citalopram Hydrobromide [Celexa] 40 mg PO DAILY 12/29/17 [History] Phenytoin Sodium Extended [Dilantin] 30 mg PO ASDIRECTED 12/29/17 [History] Past Medical History HEENT History: Reports: Impaired Vision Other HEENT History: legally blind. 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 kyphosis. lordosis. spinal tumors causing spastic quadriparesis Neurological History: Reports: Seizure Other Neuro History: mild mental retardation Other Psychiatric History: mild MR - Past Surgical History Other Neurological Surgeries/Procedures: Brain shunt. Social & Family History - Family History Family Medical History: Noncontributory - Living Situation & Occupation Living situation: Reports: Extended Care Facility Occupation: Disabled ED ROS GENERAL - Review of Systems Review Of Systems: See Below Constitutional: Reports: No Symptoms HEENT: Reports: No Symptoms Respiratory: Reports: No Symptoms Cardiovascular: Reports: No Symptoms Endocrine: Reports: No Symptoms GI/Abdominal: Reports: No Symptoms : Reports: No Symptoms Musculoskeletal: Reports: No Symptoms Skin: Reports: No Symptoms Neurological: Reports: Seizure Psychiatric: Reports: No Symptoms Hematologic/Lymphatic: Reports: No Symptoms Immunologic: Reports: No Symptoms - Physical Exam Exam: See Below Exam Limited By: No Limitations General Appearance: Alert, WD/WN, No Apparent Distress Eye Exam: Bilateral Eye: EOMI, Normal Inspection, PERRL Ears: Normal TMs Nose: Normal Inspection, Normal Mucosa, No Blood Throat/Mouth: Normal Inspection, Normal Lips, Normal Teeth, Normal Gums, Normal Oropharynx, Normal Voice, No Airway Compromise Head Exam: Atraumatic, Normocephalic Neck: Normal Inspection, Supple, Non-Tender, Full Range of Motion Respiratory/Chest: No Respiratory Distress, Lungs Clear, Normal Breath Sounds, No Accessory Muscle Use, Chest Non-Tender Cardiovascular: Normal Peripheral Pulses, Regular Rate, Rhythm, No Edema, No Gallop, No JVD, No Murmur, No Rub GI/Abdominal: Normal Bowel Sounds, Soft, Non-Tender, No Organomegaly, No Distention, No Abnormal Bruit, No Mass Neuro Exam (Abbreviated): Alert, Oriented, CN II-XII Intact, Normal Cognition, Normal Gait, Normal Reflexes, No Motor/Sensory Deficits Back Exam: Normal Inspection, Full Range of Motion, NT Extremities: Normal Inspection, Normal Range of Motion, Non-Tender, No Pedal Edema, Normal Capillary Refill Psychiatric: Normal Affect, Normal Mood Skin Exam: Warm, Dry, Intact, Normal Color, No Rash Course - Vital Signs Last Recorded V/S: Last Vital Signs Temp 37.1 C 12/29/17 00:06 Pulse 96 12/29/17 00:06 Resp 16 12/29/17 00:06 BP 115/76 12/29/17 00:06 Pulse Ox 99 12/29/17 00:06 - Orders/Labs/Meds Orders: Active Orders 24 hr Category Date Time Status CMP [COMPREHENSIVE METABOLIC PN,CMP] [CHEM] Stat Lab 12/29/17 00:09 Ordered DILANTIN,PHENYTOIN [CHEM] Stat Lab 12/29/17 00:09 Ordered MAGNESIUM [CHEM] Stat Lab 12/29/17 00:09 Ordered - Re-Assessments/Exams Free Text/Narrative Re-Assessment/Exam: 12/29/17 01:06 labs reviewed. Likely non contributory to seizure. Departure - Departure Time of Disposition: 01:06 Disposition: Home, Self-Care 01 Condition: Good Clinical Impression: Seizure disorder - Discharge Information Instructions: Epilepsy, [id number] Additional Instructions: Labs tonight look largely normal. Your sodium was 131, which while low, most likely was not the causation of your seizure. Follow up with Dr. Givens next week to further address any changes to your medications. Stay well hydrated and call us with any questions or concerns. - Problem List & Annotations (1) Seizure disorder SNOMED Code(s): 099192985 Code(s): G40.909 - EPILEPSY, UNSP, NOT INTRACTABLE, WITHOUT STATUS EPILEPTICUS Status: Acute Priority: Low Current Visit: Yes Onset Date: ~ 12/09/16 - Problem List Review Problem List Initiated/Reviewed/Updated: Yes - My Orders Last 24 Hours: My Active Orders 12/29/17 00:09 CMP [COMPREHENSIVE METABOLIC PN,CMP] [CHEM] Stat DILANTIN,PHENYTOIN [CHEM] Stat MAGNESIUM [CHEM] Stat - Assessment/Plan Last 24 Hours: My Active Orders 12/29/17 00:09 CMP [COMPREHENSIVE METABOLIC PN,CMP] [CHEM] Stat DILANTIN,PHENYTOIN [CHEM] Stat MAGNESIUM [CHEM] Stat Assessment:: seizure Plan: Labs tonight look largely normal. Your sodium was 131, which while low, most likely was not the causation of your seizure. Follow up with Dr. Givens next week to further address any changes to your medications. Stay well hydrated and call us with any questions or concerns.
[2017-12-29 00:58] LABS: CHLORIDE,CL 98 mmol/L (98-107); SODIUM,NA 131 mmol/L (136-145)
== END 2017-12-29 01:30 | disposition home or self-care (01) ==
LOC: VM.ED 00:05
DX: G40.909 Epilepsy, unspecified, not intractable, without status epilepticus (principal); Z79.899 Other long term (current) drug therapy
CPT/HCPCS: 36415; 80053; 80185; 83735; 99284

== ENCOUNTER 2018-04-08 16:06 | Emergency (ER) | payer MEDICARE, MEDICAID ==
[2018-04-08] MEDS ORDERED: Sodium Chloride 0.9% 1,000 ML IV ONE (16:41)
[2018-04-08] MEDS ORDERED: Ondansetron 4 MG/2 ML SDV IVPUSH ONE (16:42)
--- NOTE | 2018-04-08 17:04 | EDM.PDOC ---
ED HPI GENERAL MEDICAL PROBLEM - General Chief Complaint: Neuro Symptoms/Deficits Stated Complaint: Witnessed Seizure Time Seen by Provider: 04/08/18 16:11 Source of Information: Reports: Patient, EMS Notes Reviewed, RN, Other ( caregiver) History Limitations: Reports: No Limitations - History of Present Illness INITIAL COMMENTS - FREE TEXT/NARRATIVE: Patient is brought to the emergency room at [facility] via EMS for a witnessed seizure. The patient resides at a retirement [facility] and was apparently witnessed having a seizure by the staff. Apparently the first seizure lasted about 4 minutes, and a second seizure shortly after lasted about 2 minutes. Upon arrival to the emergency room the patient was post ictal for about 20 minutes, then patient was able to answers questions appropriately. Patient states that her last seizure was about 2 months ago. The patient states that she does not have any symptoms prior to seizure activity. The patient currently states she has a headache. The patient denies any shortness of breath or chest pain. The patient is chronically incontinent of urine given her past medical history. The patient states she feels slightly nauseated. The patient has not had any vomiting or diarrhea. Onset: Today Onset Date: 04/08/18 Treatments AUDITING CODER: Reports: See EMS Report - Related Data Allergies Allergy/AdvReac Type Severity Reaction Status Date / Time No Known Drug Allergies Allergy Other Verified 12/29/17 00:14 Home Meds: Home Meds Calcium Carbonate [Calcium] 500 mg PO BID 11/12/14 [History] Nitrofurantoin Macrocrystal [Nitrofurantoin] 100 mg PO DAILY 11/12/14 [History] OXcarbazepine [Oxcarbazepine] 600 mg PO BID 11/12/14 [History] Potassium Chloride [Klor-Con M20] 20 meq PO DAILY 11/12/14 [History] Cranberry 1 each PO DAILY 01/03/16 [History] Ergocalciferol (Vitamin D2) [Vitamin D2] 2,000 unit PO DAILY 01/03/16 [History] Multivitamin/Iron/Folic Acid [Sentry Tablet] 1 each PO DAILY 01/03/16 [History] Sennosides/Docusate Sodium [Senna Plus Tablet] 1 tab PO BID 01/04/16 [History] Phenytoin 100 mg PO TID #30 cap.er 01/05/16 [Rx] ARIPiprazole [Abilify] 5 mg PO DAILY 12/09/16 [History] Polyethylene Glycol 3350 [MiraLAX] 17 gm PO ASDIRECTED 12/09/16 [History] Citalopram Hydrobromide [Celexa] 40 mg PO DAILY 12/29/17 [History] Phenytoin Sodium Extended [Dilantin] 30 mg PO ASDIRECTED 12/29/17 [History] Azithromycin [Zithromax] 250 mg PO DAILY 4 Days #4 tab 04/08/18 [Rx] Past Medical History HEENT History: Reports: Impaired Vision Other HEENT History: legally blind. 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 kyphosis. lordosis. spinal tumors causing spastic quadriparesis Neurological History: Reports: Seizure Other Neuro History: mild mental retardation Other Psychiatric History: mild MR - Past Surgical History Other Neurological Surgeries/Procedures: Brain shunt. Social & Family History - Family History Family Medical History: Noncontributory - Tobacco Use Smoking Status *Q: Never Smoker - Living Situation & Occupation Living situation: Reports: Extended Care Facility Occupation: Disabled ED ROS GENERAL - Review of Systems Review Of Systems: ROS reveals no pertinent complaints other than HPI. - Physical Exam Exam: See Below Exam Limited By: No Limitations General Appearance: Alert, No Apparent Distress Eye Exam: Bilateral Eye: Normal Inspection Ears: Normal External Exam, Normal Canal, Normal TMs Head Exam: Atraumatic, Normocephalic Neck: Supple Respiratory/Chest: No Respiratory Distress, Lungs Clear, Normal Breath Sounds Cardiovascular: Normal Peripheral Pulses, Tachycardia GI/Abdominal: Normal Bowel Sounds, Soft, Non-Tender Neuro Exam (Abbreviated): Alert, Disoriented, Slow to Respond Skin Exam: Warm, Dry, Intact, Normal Color EKG INTERPRETATION EKG Date: 04/08/18 Time: 16:39 Rhythm: Other (Sinus Tachycardia) Rate (Beats/Min): 125 [place]: Normal P-Wave: Present QRS: Normal ST-T: Depressed QT: Normal MT/PQ Interval: 0.16 Comparison: NA - No Prior EKG EKG Interpretation Comments: 1. Sinus Tachycardia 2. Minimal ST depression Course - Vital Signs Last Recorded V/S: Last Vital Signs Temp 38.2 C H 04/08/18 16:35 Pulse 111 H 04/08/18 17:34 Resp 19 04/08/18 17:34 BP 109/67 04/08/18 17:34 Pulse Ox 97 04/08/18 17:34 - Orders/Labs/Meds Orders: Active Orders 24 hr Category Date Time Status Head wo Cont [CT] Stat Exams 04/08/18 16:11 Taken CULTURE BLOOD [BC] Stat Lab 04/08/18 16:47 Results CULTURE BLOOD [BC] Stat Lab 04/08/18 16:52 Results OXCARBAZEPINE [REF] Stat Lab 04/08/18 16:47 Received Blood Culture x2 Reflex Set [OM.PC] Stat Oth 04/08/18 17:46 Ordered Labs: Laboratory Tests 04/08/18 04/08/18 04/08/18 Range/Units 16:24 16:47 16:47 WBC 12.4 H (4.0-10.0) x10^3/uL RBC 4.19 (4.00-5.50) x10^6/uL Hgb 13.9 (12.0-16.0) g/dL Hct 37.8 (33.0-47.0) % MCV 90.2 (78.0-93.0) fL MCH 33.2 H (26.0-32.0) pg MCHC 36.8 H (32.0-36.0) g/dL RDW Coeff of Prerna 11.4 (10.0-15.0) % Plt Count 194 (130-400) x10^3/uL Neut % (Auto) 84.5 H (50.0-80.0) % Lymph % (Auto) 5.9 L (25.0-50.0) % [place] % (Auto) 9.2 (2.0-11.0) % Eos % (Auto) 0.3 (0.0-4.0) % Baso % (Auto) 0.1 L (0.2-1.2) % ESR 33 H (0-21) mm/hr Sodium 128 L* (136-145) mmol/L Potassium 4.0 (3.5-5.1) mmol/L Chloride 96 L (98-107) mmol/L Carbon Dioxide 22 (21-32) mmol/L Anion Gap 14.0 (10-20) mmol/L BUN 10 (7-18) mg/dL Creatinine 0.7 (0.55-1.02) mg/dL Est Cr Clr Drug Dosing TNP Estimated GFR (MDRD) > 60 Glucose 147 H (74-106) mg/dL Lactic Acid (0.4-2.0) mmol/L Calcium 8.7 (8.5-10.1) mg/dL Corrected Calcium 9.26 (8.5-10.1) mg/dL Total Bilirubin 0.4 (0.2-1.0) mg/dL AST 28 (15-37) U/L ALT 63 H (14-59) U/L Alkaline Phosphatase 140 H (46-116) U/L C-Reactive Protein 14.4 H (<=0.9) mg/dL Total Protein 7.4 (6.4-8.2) g/dL Albumin 3.3 L (3.4-5.0) g/dL Globulin 4.1 Albumin/Globulin Ratio 0.80 Urine Color Yellow (YELLOW) Urine Appearance Clear (CLEAR) Urine pH 7.0 (5.0-8.0) Ur Specific [place] 1.025 Urine Protein 100 H (NEGATIVE) mg/dL Urine Glucose (UA) 100 H (NEGATIVE) mg/dL Urine Ketones Negative (NEGATIVE) mg/dL Urine Occult Blood Negative (NEGATIVE) Urine Nitrite Negative (NEGATIVE) Urine Bilirubin Negative (NEGATIVE) Urine Urobilinogen 0.2 (0.2) EU/dL Ur Leukocyte Esterase Negative (NEGATIVE) Urine RBC 0-5 (NOT SEEN) /HPF Urine WBC 0-5 (NOT SEEN) /HPF Ur Squamous Epith Cells Rare (NEGATIVE) /HPF Urine Bacteria Few H (NEGATIVE) /HPF Hyaline Casts Few H (NEGATIVE) /HPF Urine Mucus Rare H (NEGATIVE) /LPF Phenytoin 18 (10-20) ug/mL 04/08/18 Range/Units 16:47 WBC (4.0-10.0) x10^3/uL RBC (4.00-5.50) x10^6/uL Hgb (12.0-16.0) g/dL Hct (33.0-47.0) % MCV (78.0-93.0) fL MCH (26.0-32.0) pg MCHC (32.0-36.0) g/dL RDW Coeff of Prerna (10.0-15.0) % Plt Count (130-400) x10^3/uL Neut % (Auto) (50.0-80.0) % Lymph % (Auto) (25.0-50.0) % [place] % (Auto) (2.0-11.0) % Eos % (Auto) (0.0-4.0) % Baso % (Auto) (0.2-1.2) % ESR (0-21) mm/hr Sodium (136-145) mmol/L Potassium (3.5-5.1) mmol/L Chloride (98-107) mmol/L Carbon Dioxide (21-32) mmol/L Anion Gap (10-20) mmol/L BUN (7-18) mg/dL Creatinine (0.55-1.02) mg/dL Est Cr Clr Drug Dosing Estimated GFR (MDRD) Glucose (74-106) mg/dL Lactic Acid 3.1 H* (0.4-2.0) mmol/L Calcium (8.5-10.1) mg/dL Corrected Calcium (8.5-10.1) mg/dL Total Bilirubin (0.2-1.0) mg/dL AST (15-37) U/L ALT (14-59) U/L Alkaline Phosphatase (46-116) U/L C-Reactive Protein (<=0.9) mg/dL Total Protein (6.4-8.2) g/dL Albumin (3.4-5.0) g/dL Globulin Albumin/Globulin Ratio Urine Color (YELLOW) Urine Appearance (CLEAR) Urine pH (5.0-8.0) Ur Specific [place] Urine Protein (NEGATIVE) mg/dL Urine Glucose (UA) (NEGATIVE) mg/dL Urine Ketones (NEGATIVE) mg/dL Urine Occult Blood (NEGATIVE) Urine Nitrite (NEGATIVE) Urine Bilirubin (NEGATIVE) Urine Urobilinogen (0.2) EU/dL Ur Leukocyte Esterase (NEGATIVE) Urine RBC (NOT SEEN) /HPF Urine WBC (NOT SEEN) /HPF Ur Squamous Epith Cells (NEGATIVE) /HPF Urine Bacteria (NEGATIVE) /HPF Hyaline Casts (NEGATIVE) /HPF Urine Mucus (NEGATIVE) /LPF Phenytoin (10-20) ug/mL Meds: Medications Discontinued Medications Generic Name Dose Route Start Last Admin Trade Name Freq PRN Reason Stop Dose Admin Sodium Chloride 1,000 mls @ 999 mls/hr 04/08/18 16:41 04/08/18 16:49 Normal Saline IV 04/08/18 17:41 999 mls/hr ONETIME ONE Administration Ondansetron HCl 4 mg 04/08/18 16:42 04/08/18 16:49 Zofran IVPUSH 04/08/18 16:43 4 mg ONETIME ONE Administration - Radiology Interpretation Free Text/Narrative:: CT Head: No acute findings or significant change from May 04, 2017 See scanned report in EMR CT Results Date: 04/08/18 CT Results Time: 16:57 Departure - Departure Time of Disposition: 17:55 Disposition: Home, Self-Care 01 Condition: Good Clinical Impression: Seizure disorder, Lactic acidosis, Hyponatremia Fever Qualifiers: Fever type: unspecified Qualified Code(s): R50.9 - Fever, unspecified - Discharge Information *PRESCRIPTION DRUG MONITORING PROGRAM REVIEWED*: Not Applicable *COPY OF PRESCRIPTION DRUG MONITORING REPORT IN PATIENT MARTY: Not Applicable Prescriptions: Azithromycin [Zithromax] 250 mg PO DAILY 4 Days #4 tab Instructions: Hyponatremia, Fever, Adult, [id number], Seizure, Adult, Easy-to -Read Referrals: Seamus Givens MD [Physician] - 04/12/18 (Follow up with Dr. Givens this in clinic) Forms: ED Department Discharge Additional Instructions: 1. Increase water intake to increase sodium level 2. Start ZPak for fevers and elevated white blood cell count 3. Need to schedule an appointment with Dr. Givens for this at [facility] 4. No changes with any home medications ED Communication - ED Communication Date/Time Date: 04/08/18 Time Called: 17:48 - Discussed Case With (1) Discussed Case With (1): Outpatient Provider Person/s Notified (1): Seamus Givens - Conversation Summary Outpatient Provider Agreed to Follow-up on this Patient: Yes - Problem List Review Problem List Initiated/Reviewed/Updated: Yes - My Orders Last 24 Hours: My Active Orders 04/08/18 16:11 Head wo Cont [CT] Stat 04/08/18 16:47 CULTURE BLOOD [BC] Stat OXCARBAZEPINE [REF] Stat 04/08/18 16:52 CULTURE BLOOD [BC] Stat 04/08/18 17:46 Blood Culture x2 Reflex Set [OM.PC] Stat - Assessment/Plan Last 24 Hours: My Active Orders 04/08/18 16:11 Head wo Cont [CT] Stat 04/08/18 16:47 CULTURE BLOOD [BC] Stat OXCARBAZEPINE [REF] Stat 04/08/18 16:52 CULTURE BLOOD [BC] Stat 04/08/18 17:46 Blood Culture x2 Reflex Set [OM.PC] Stat Assessment:: Seizure disorder Post Ictal Hyponatremia Lactic Acidosis Plan: Case discussed with Dr. Givens. Recommend outpatient treatment. Patient with known seizure history and sees Neurology quite often. Will empirically start patient on ZPak given elevated temp, WBC's and lactic acidosis. Recommend increasing fluid intake. See Dr. Givens in clinic this for a recheck.
[2018-04-08 17:25] LABS: CHLORIDE,CL 96 mmol/L (98-107)
[2018-04-08 17:31] LABS: SODIUM,NA 128 mmol/L (136-145)
[2018-04-08 17:51] VITALS: BP 109/67
[2018-04-08] MEDS ORDERED: Take Home: Azithromycin 250 MG, 2 Tab Pack PO ONE (17:59)
== END 2018-04-08 19:03 | disposition home or self-care (01) ==
LOC: VM.ED 16:06
DX: G40.909 Epilepsy, unspecified, not intractable, without status epilepticus (principal); E87.2 Acidosis; E87.1 Hypo-osmolality and hyponatremia; Z79.899 Other long term (current) drug therapy
CPT/HCPCS: 70450; 80053; 80183; 80185; 81001; 83605; 85025; 85652; 86140; 87040; 93005; 96361; 96374; 99285; A9270-GY; J2405; J7030

== ENCOUNTER 2018-09-17 12:07 | Emergency (ER) | payer MEDICARE, MEDICAID ==
[2018-09-17] MEDS ORDERED: Sodium Chloride 0.9% 10 ML Syringe FLUSH PRN (12:16)
--- NOTE | 2018-09-17 12:22 | EDM.PDOC ---
ED HPI GENERAL MEDICAL PROBLEM - General Chief Complaint: Neurological Problem Stated Complaint: SEIZURE Time Seen by Provider: 09/17/18 12:15 Source of Information: Reports: EMS, Other (care home staff) History Limitations: Reports: Altered Mental Status - History of Present Illness INITIAL COMMENTS - FREE TEXT/NARRATIVE: Patient brought in via EMS after suffering two seizures. First seizure longer than 5 minutes which initiated call for EMS. Does have an implanted VNS which was utilized. Mixed results as she did continue to have a prolonged seizure but second seizure was ended after using the VNS. She does have extensive seizure activity. Is post ictal and minimally responsive. Onset: Today, Sudden Duration: Resolved Prior to Arrival Location: Reports: Generalized - Related Data Allergies Allergy/AdvReac Type Severity Reaction Status Date / Time No Known Drug Allergies Allergy Other Verified 12/29/17 00:14 Home Meds: Home Meds Calcium Carbonate [Calcium] 500 mg PO BID 11/12/14 [History] Nitrofurantoin Macrocrystal [Nitrofurantoin] 100 mg PO DAILY 11/12/14 [History] OXcarbazepine [Oxcarbazepine] 600 mg PO BID 11/12/14 [History] Potassium Chloride [Klor-Con M20] 20 meq PO DAILY 11/12/14 [History] Cranberry 1 each PO DAILY 01/03/16 [History] Ergocalciferol (Vitamin D2) [Vitamin D2] 2,000 unit PO DAILY 01/03/16 [History] Multivitamin/Iron/Folic Acid [Sentry Tablet] 1 each PO DAILY 01/03/16 [History] Sennosides/Docusate Sodium [Senna Plus Tablet] 1 tab PO BID 01/04/16 [History] Phenytoin 100 mg PO TID #30 cap.er 01/05/16 [Rx] ARIPiprazole [Abilify] 7.5 mg PO DAILY 12/09/16 [History] Polyethylene Glycol 3350 [MiraLAX] 17 gm PO ASDIRECTED 12/09/16 [History] Citalopram Hydrobromide [Celexa] 40 mg PO DAILY 12/29/17 [History] Phenytoin Sodium Extended [Dilantin] 30 mg PO ASDIRECTED 12/29/17 [History] Azithromycin [Zithromax] 250 mg PO DAILY 4 Days #4 tab 04/08/18 [Rx] Past Medical History HEENT History: Reports: Impaired Vision Other HEENT History: legally blind. 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 kyphosis. lordosis. spinal tumors causing spastic quadriparesis Neurological History: Reports: Seizure Other Neuro History: mild mental retardation Other Psychiatric History: mild MR - Past Surgical History Other Neurological Surgeries/Procedures: Brain shunt. Social & Family History - Family History Family Medical History: Noncontributory - Living Situation & Occupation Living situation: Reports: Extended Care Facility Occupation: Disabled ED ROS GENERAL - Review of Systems Review Of Systems: See Below (history obtained from [facility] staff. Patient largely non responsive) Constitutional: Reports: No Symptoms HEENT: Reports: No Symptoms Respiratory: Reports: No Symptoms Cardiovascular: Reports: No Symptoms Endocrine: Reports: No Symptoms GI/Abdominal: Reports: No Symptoms : Reports: No Symptoms Musculoskeletal: Reports: No Symptoms Skin: Reports: No Symptoms Neurological: Reports: Seizure Psychiatric: Reports: No Symptoms Hematologic/Lymphatic: Reports: No Symptoms Immunologic: Reports: No Symptoms - Physical Exam Exam: See Below Exam Limited By: No Limitations General Appearance: Lethargic (post ictal) Eye Exam: Bilateral Eye: PERRL (bilateral equal pupillary reaction to light stimulus) Ears: Normal TMs Head Exam: Atraumatic, Normocephalic Neck: Normal Inspection, Supple, Non-Tender, Full Range of Motion Respiratory/Chest: No Respiratory Distress, Lungs Clear, Normal Breath Sounds, No Accessory Muscle Use, Chest Non-Tender Cardiovascular: Normal Peripheral Pulses, Regular Rate, Rhythm, No Edema, No Gallop, No JVD, No Murmur, No Rub GI/Abdominal: Normal Bowel Sounds, Soft, Non-Tender, No Organomegaly, No Distention, No Abnormal Bruit, No Mass Neuro Exam (Abbreviated): Confused, Slow to Respond Extremities: Normal Inspection, Normal Range of Motion, Non-Tender, No Pedal Edema, Normal Capillary Refill Psychiatric: Normal Affect, Normal Mood Skin Exam: Warm, Dry, Intact, Normal Color, No Rash Course - Vital Signs Last Recorded V/S: Last Vital Signs Temp 36.6 C 09/17/18 12:10 Pulse 115 H 09/17/18 13:15 Resp 14 09/17/18 13:15 BP 111/68 09/17/18 13:15 Pulse Ox 97 09/17/18 13:15 - Orders/Labs/Meds Orders: Active Orders 24 hr Category Date Time Status Saline Lock Insert [OM.PC] Routine Oth 09/17/18 12:16 Ordered Labs: Laboratory Tests 09/17/18 09/17/18 Range/Units 12:47 12:47 WBC 5.4 (4.0-10.0) x10^3/uL RBC 4.41 (4.00-5.50) x10^6/uL Hgb 14.1 (12.0-16.0) g/dL Hct 39.5 (33.0-47.0) % MCV 89.6 (78.0-93.0) fL MCH 32.0 (26.0-32.0) pg MCHC 35.7 (32.0-36.0) g/dL RDW Coeff of Prerna 11.3 (10.0-15.0) % Plt Count 243 (130-400) x10^3/uL Neut % (Auto) 59.4 (50.0-80.0) % Lymph % (Auto) 29.1 (25.0-50.0) % [place] % (Auto) 9.6 (2.0-11.0) % Eos % (Auto) 1.5 (0.0-4.0) % Baso % (Auto) 0.4 (0.2-1.2) % Sodium 133 L (136-145) mmol/L Potassium 3.9 (3.5-5.1) mmol/L Chloride 97 L (98-107) mmol/L Carbon Dioxide 19 L (21-32) mmol/L Anion Gap 20.9 H (10-20) mmol/L BUN 13 (7-18) mg/dL Creatinine 0.6 (0.55-1.02) mg/dL Est Cr Clr Drug Dosing TNP Estimated GFR (MDRD) > 60 Glucose 124 H (74-106) mg/dL Calcium 8.8 (8.5-10.1) mg/dL Corrected Calcium 9.12 (8.5-10.1) mg/dL Total Bilirubin 0.3 (0.2-1.0) mg/dL AST 23 (15-37) U/L ALT 49 (14-59) U/L Alkaline Phosphatase 143 H (46-116) U/L Total Protein 7.0 (6.4-8.2) g/dL Albumin 3.6 (3.4-5.0) g/dL Globulin 3.4 Albumin/Globulin Ratio 1.06 Meds: Medications Discontinued Medications Generic Name Dose Route Start Last Admin Trade Name Freq PRN Reason Stop Dose Admin Sodium Chloride 1,000 mls @ 999 mls/hr 09/17/18 12:30 09/17/18 12:45 Normal Saline IV 999 mls/hr ASDIRECTED CARLOS Administration Sodium Chloride 10 ml 09/17/18 12:16 Saline Flush FLUSH ASDIRECTED PRN Keep Vein Open - Radiology Interpretation Free Text/Narrative:: CT negative for acute pathology Departure - Departure Time of Disposition: 14:08 Disposition: Home, Self-Care 01 Condition: Good Clinical Impression: Seizure, Post-ictal state - Discharge Information *PRESCRIPTION DRUG MONITORING PROGRAM REVIEWED*: Not Applicable *COPY OF PRESCRIPTION DRUG MONITORING REPORT IN PATIENT MARTY: Not Applicable Instructions: Seizure, Adult, [id number] Referrals: Seamus Givens MD [Primary Care Provider] - Forms: ED Department Discharge Additional Instructions: Plan 1. Go home and rest 2. Follow up with neurology as needed 3. Labwork and CT today were not contributory to your seizure 4. Please call if you have any additional questions or concerns - Problem List & Annotations (1) Generalized convulsive epilepsy SNOMED Code(s): 48418264 Code(s): G40.309 - GEN IDIOPATHIC EPILEPSY, NOT INTRACTABLE, W/O STAT EPI Status: Acute Priority: Low - Problem List Review Problem List Initiated/Reviewed/Updated: Yes - My Orders Last 24 Hours: My Active Orders 09/17/18 12:16 Saline Lock Insert [OM.PC] Routine - Assessment/Plan Last 24 Hours: My Active Orders 09/17/18 12:16 Saline Lock Insert [OM.PC] Routine Assessment:: Seizure with post ictal state Plan: Plan 1. Go home and rest 2. Follow up with neurology as needed 3. Labwork and CT today were not contributory to your seizure 4. Please call if you have any additional questions or concerns
[2018-09-17] MEDS ORDERED: Sodium Chloride 0.9% 1,000 ML IV SCH (12:30)
--- NOTE | 2018-09-17 13:13 | CT ---
[id number] CT/CT Head WO IV EXAM: NONCONTRAST HEAD CT INDICATION: Seizures and altered consciousness. COMPARISON: April 08, 2018. DISCUSSION: There is stable generalized atrophy and moderate to severe ventriculomegaly. A right parietally introduced ventriculoperitoneal shunt catheter is stable in position tip in the left ventricle. Irregular contour to the lateral ventricles, unchanged. No acute hemorrhage, mass effect, midline shift or extra-axial collection. Unchanged left mastoid and middle ear effusions. Mild scattered paranasal sinus mucosal thickening in the relative to the prior study. Partially imaged left posterior neck skin mass. IMPRESSION: 1. No acute findings. Amos Victor MD 09/17/18 [id number] Thank you for allowing us to participate in the care of your patient.
[2018-09-17 13:14] LABS: CHLORIDE,CL 97 mmol/L (98-107); SODIUM,NA 133 mmol/L (136-145)
[2018-09-17 13:19] LABS: ANION GAP 20.9 mmol/L (10-20)
[2018-09-17 13:34] VITALS: BP 111/68
== END 2018-09-17 14:08 | disposition home or self-care (01) ==
LOC: VM.ED 12:07
DX: R56.9 Unspecified convulsions (principal); Z79.899 Other long term (current) drug therapy
CPT/HCPCS: 36415; 70450; 80053; 85025; 96360; 99284; 99285; J7030

== ENCOUNTER 2018-10-06 08:38 | Emergency (ER) | payer MEDICARE, MEDICAID ==
[2018-10-06] MEDS ORDERED: Sodium Chloride 0.9% 10 ML Syringe FLUSH PRN (08:48)
--- NOTE | 2018-10-06 08:54 | EDM.PDOC ---
ED HPI GENERAL MEDICAL PROBLEM - General Chief Complaint: General Stated Complaint: seizure Time Seen by Provider: 10/06/18 08:38 Source of Information: Reports: EMS, EMS Notes Reviewed, Other History Limitations: Reports: No Limitations - History of Present Illness INITIAL COMMENTS - FREE TEXT/NARRATIVE: Patient comes in to the emergency department with EMS with complaint of a seizure. Patient does have a history of seizures. When the patient does have a seizure she has a vagus nerve stimulator and they are to utilize that if the seizure lasts greater than 5 minutes and they're to call 911. The seizure lasted exactly 5 minutes and they contacted 911. They did use a vagus nerve stimulator 1 time. Patient was postictal prior to arrival. Patient normally is in a wheelchair and is nonverbal and communication can be challenging at times. Staff decline patient being sick any recent fevers, any recent vomiting, any recent abnormal behaviors. Improves with: Reports: None Worsens with: Reports: None Associated Symptoms: Reports: No Other Symptoms - Related Data Allergies Allergy/AdvReac Type Severity Reaction Status Date / Time No Known Drug Allergies Allergy Other Verified 10/06/18 09:52 Home Meds: Home Meds Calcium Carbonate [Calcium] 500 mg PO BID 11/12/14 [History] Nitrofurantoin Macrocrystal [Nitrofurantoin] 100 mg PO DAILY 11/12/14 [History] OXcarbazepine [Oxcarbazepine] 600 mg PO BID 11/12/14 [History] Potassium Chloride [Klor-Con M20] 20 meq PO DAILY 11/12/14 [History] Cranberry 1 each PO DAILY 01/03/16 [History] Ergocalciferol (Vitamin D2) [Vitamin D2] 2,000 unit PO DAILY 01/03/16 [History] Multivitamin/Iron/Folic Acid [Sentry Tablet] 1 each PO DAILY 01/03/16 [History] Sennosides/Docusate Sodium [Senna Plus Tablet] 1 tab PO BID 01/04/16 [History] Phenytoin 100 mg PO TID #30 cap.er 01/05/16 [Rx] ARIPiprazole [Abilify] 7.5 mg PO DAILY 12/09/16 [History] Polyethylene Glycol 3350 [MiraLAX] 17 gm PO ASDIRECTED 12/09/16 [History] Citalopram Hydrobromide [Celexa] 40 mg PO DAILY 12/29/17 [History] Phenytoin Sodium Extended [Dilantin] 30 mg PO ASDIRECTED 12/29/17 [History] Azithromycin [Zithromax] 250 mg PO DAILY 4 Days #4 tab 04/08/18 [Rx] Past Medical History HEENT History: Reports: Impaired Vision Other HEENT History: legally blind. 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 kyphosis. lordosis. spinal tumors causing spastic quadriparesis Neurological History: Reports: Seizure Other Neuro History: mild mental retardation Other Psychiatric History: mild MR - Past Surgical History Other Neurological Surgeries/Procedures: Brain shunt. Social & Family History - Family History Family Medical History: Noncontributory - Living Situation & Occupation Living situation: Reports: Extended Care Facility Occupation: Disabled ED ROS GENERAL - Review of Systems Review Of Systems: See Below Constitutional: Reports: No Symptoms HEENT: Reports: No Symptoms Respiratory: Reports: No Symptoms Cardiovascular: Reports: No Symptoms Endocrine: Reports: No Symptoms GI/Abdominal: Reports: No Symptoms : Reports: No Symptoms Musculoskeletal: Reports: No Symptoms Skin: Reports: No Symptoms Neurological: Reports: No Symptoms Psychiatric: Reports: No Symptoms Hematologic/Lymphatic: Reports: No Symptoms Immunologic: Reports: No Symptoms ED EXAM, GENERAL - Physical Exam Exam: See Below Exam Limited By: No Limitations General Appearance: Alert, WD/WN, No Apparent Distress Head: Atraumatic, Normocephalic Neck: Normal Inspection, Supple, Non-Tender, Full Range of Motion Respiratory/Chest: No Respiratory Distress, Lungs Clear, Normal Breath Sounds, No Accessory Muscle Use, Chest Non-Tender Cardiovascular: Normal Peripheral Pulses, Regular Rate, Rhythm Peripheral Pulses: 2+: Radial (L), Radial (R), Dorsalis Pedis (L), Dorsalis Pedis (R) GI/Abdominal: Normal Bowel Sounds, Soft, Non-Tender, No Distention Back Exam: Normal Inspection, Full Range of Motion Extremities: Normal Inspection, Normal Range of Motion, Non-Tender Neurological: Alert, Other (pt is non verbal ) Psychiatric: Normal Affect Skin Exam: Warm, Dry, Intact, Normal Color Course - Vital Signs Last Recorded V/S: Last Vital Signs Temp 36.9 C 10/06/18 08:38 Pulse 103 H 10/06/18 08:38 Resp 16 10/06/18 08:38 BP 144/75 H 10/06/18 08:38 Pulse Ox 98 10/06/18 08:38 - Orders/Labs/Meds Orders: Active Orders 24 hr Category Date Time Status Sodium Chloride 0.9% [Saline Flush] Med 10/06/18 08:48 Active 10 ml FLUSH ASDIRECTED PRN Peripheral IV Insertion Adult [OM.PC] Stat Oth 10/06/18 08:48 Ordered Medication Orders Sodium Chloride (Saline Flush) 10 ml FLUSH ASDIRECTED PRN PRN Reason: Keep Vein Open Labs: Laboratory Tests 10/06/18 10/06/18 10/06/18 Range/Units 08:46 08:46 09:36 WBC 5.9 (4.0-10.0) x10^3/uL RBC 4.69 (4.00-5.50) x10^6/uL Hgb 14.8 (12.0-16.0) g/dL Hct 41.9 (33.0-47.0) % MCV 89.3 (78.0-93.0) fL MCH 31.6 (26.0-32.0) pg MCHC 35.3 (32.0-36.0) g/dL RDW Coeff of Prerna 11.8 (10.0-15.0) % Plt Count 259 (130-400) x10^3/uL Neut % (Auto) 66.0 (50.0-80.0) % Lymph % (Auto) 24.4 L (25.0-50.0) % [place] % (Auto) 8.4 (2.0-11.0) % Eos % (Auto) 1.0 (0.0-4.0) % Baso % (Auto) 0.2 (0.2-1.2) % Sodium 133 L (136-145) mmol/L Potassium 3.5 (3.5-5.1) mmol/L Chloride 97 L (98-107) mmol/L Carbon Dioxide 18 L (21-32) mmol/L Anion Gap 21.5 H (10-20) mmol/L BUN 13 (7-18) mg/dL Creatinine 0.6 (0.55-1.02) mg/dL Est Cr Clr Drug Dosing TNP Estimated GFR (MDRD) > 60 Glucose 117 H (74-106) mg/dL Calcium 9.2 (8.5-10.1) mg/dL Corrected Calcium 9.28 (8.5-10.1) mg/dL Total Bilirubin 0.5 (0.2-1.0) mg/dL AST 22 (15-37) U/L ALT 49 (14-59) U/L Alkaline Phosphatase 160 H (46-116) U/L C-Reactive Protein 0.4 (<=0.9) mg/dL Total Protein 7.5 (6.4-8.2) g/dL Albumin 3.9 (3.4-5.0) g/dL Globulin 3.6 Albumin/Globulin Ratio 1.08 Urine Color Yellow (YELLOW) Urine Appearance Clear (CLEAR) Urine pH 7.0 (5.0-8.0) Ur Specific Panther Burn 1.025 Urine Protein 30 H (NEGATIVE) mg/dL Urine Glucose (UA) Negative (NEGATIVE) mg/dL Urine Ketones Negative (NEGATIVE) mg/dL Urine Occult Blood Negative (NEGATIVE) Urine Nitrite Negative (NEGATIVE) Urine Bilirubin Negative (NEGATIVE) Urine Urobilinogen 0.2 (0.2) EU/dL Ur Leukocyte Esterase Negative (NEGATIVE) Urine RBC 0-5 (NOT SEEN) /HPF Urine WBC 0-5 (NOT SEEN) /HPF Ur Squamous Epith Cells Few H (NEGATIVE) /HPF Urine Bacteria Not seen (NEGATIVE) /HPF Urine Mucus Moderate H (NEGATIVE) /LPF Meds: Medications Generic Name Dose Route Start Last Admin Trade Name Freq PRN Reason Stop Dose Admin Sodium Chloride 10 ml 10/06/18 08:48 Saline Flush FLUSH ASDIRECTED PRN Keep Vein Open Discontinued Medications Generic Name Dose Route Start Last Admin Trade Name Freq PRN Reason Stop Dose Admin Sodium Chloride 1,000 mls @ 1,000 mls/hr 10/06/18 08:48 Normal Saline IV 10/06/18 09:47 ONETIME ONE Departure - Departure Time of Disposition: 10:40 Disposition: Home, Self-Care 01 Condition: Good Clinical Impression: Seizure disorder - Discharge Information *PRESCRIPTION DRUG MONITORING PROGRAM REVIEWED*: Not Applicable *COPY OF PRESCRIPTION DRUG MONITORING REPORT IN PATIENT MARTY: Not Applicable Instructions: Epilepsy, [id number] Forms: ED Department Discharge Additional Instructions: 1. Rest 2. Follow up with PCP as needed 3. Overall labs negative for any infection including urine 4. It is advisable to try and increase water intake for her sodium was low. Please discuss further with PCP 5. Continue to follow patients normal protocol for her seizure activity 6. Activity and diet as tolerated 7. Call with any questions or concerns - My Orders Last 24 Hours: My Active Orders 10/06/18 08:48 Sodium Chloride 0.9% [Saline Flush] 10 ml FLUSH ASDIRECTED PRN Peripheral IV Insertion Adult [OM.PC] Stat - Assessment/Plan Last 24 Hours: My Active Orders 10/06/18 08:48 Sodium Chloride 0.9% [Saline Flush] 10 ml FLUSH ASDIRECTED PRN Peripheral IV Insertion Adult [OM.PC] Stat Assessment:: 1. postictal seizure Plan: 1. Labs completed in ER 2. IV and fluids given in ER 3. Staff state the seizure was witnessed and no injuries occurred. 4. During ER visit pt returned to her baseline according to staff and was joking with staff. 5. UA completed in ER 6. It is advisable to have the pt increase her oral intake at home due to her low sodium levels however due to her current medical conditions it is recommended they talk to the patients PCP before changing for she is on a restricted intake level. 7. No additional orders or changes to her current orders are recommended 8. All questions and concerns addressed prior to discharge.
[2018-10-06 09:29] LABS: ANION GAP 21.5 mmol/L (10-20); CHLORIDE,CL 97 mmol/L (98-107); SODIUM,NA 133 mmol/L (136-145)
[2018-10-06] MEDS: Sodium Chloride 0.9% 1,000 ML IV ONE (10:00)
[2018-10-06 10:04] VITALS: BP 144/75
== END 2018-10-06 10:55 | disposition home or self-care (01) ==
LOC: VM.ED 08:38
DX: G40.909 Epilepsy, unspecified, not intractable, without status epilepticus (principal); Z79.899 Other long term (current) drug therapy
CPT/HCPCS: 80053; 81001; 85025; 86140; 96360; 99284; J7030

== ENCOUNTER 2018-12-07 02:17 | Inpatient (IN) | payer MEDICARE, MEDICAID ==
[2018-12-07] MEDS ORDERED: Acetaminophen 650 MG Supp RECTAL ONE (02:47)
[2018-12-07] MEDS ORDERED: cefTRIAXone 2 GM Vial IVPUSH ONE (02:51)
[2018-12-07] MEDS ORDERED: Lactated Ringers 1,000 ML IV ONE (03:00)
[2018-12-07 03:55] LABS: CHLORIDE,CL 95 mmol/L (98-107); SODIUM,NA 130 mmol/L (136-145)
[2018-12-07 03:57] LABS: ANION GAP 16.6 mmol/L (10-20)
--- NOTE | 2018-12-07 04:27 | EDM.PDOC ---
ED HPI GENERAL MEDICAL PROBLEM - General Chief Complaint: Neurological Problem Stated Complaint: seizure Time Seen by Provider: 12/07/18 02:42 Source of Information: Reports: EMS, Other (ems and staff) History Limitations: Reports: Other (patient is post ictal, not responding) - History of Present Illness INITIAL COMMENTS - FREE TEXT/NARRATIVE: Patient brought into the ER by EMS with complaints of seizure and fever. Patient did have a seizure that lasted several minutes and when magnet applied to her VNS, this did not appear to help bring her out of her seizures. She also has a temperature of 104.2F. Does get macrobid for prophylaxis due to recurrent UTI's. She does look at you when you say her name, no other communication. She has been here numerous times for seizure related observation during her post ictal phase. Onset: Sudden Location: Reports: Generalized - Related Data Allergies Allergy/AdvReac Type Severity Reaction Status Date / Time No Known Drug Allergies Allergy Other Verified 12/07/18 02:39 Home Meds: Home Meds Calcium Carbonate [Calcium] 500 mg PO BID 11/12/14 [History] Nitrofurantoin Macrocrystal [Nitrofurantoin] 100 mg PO DAILY 11/12/14 [History] OXcarbazepine [Oxcarbazepine] 600 mg PO BID 11/12/14 [History] Potassium Chloride [Klor-Con M20] 20 meq PO DAILY 11/12/14 [History] Cranberry 1 each PO DAILY 01/03/16 [History] Ergocalciferol (Vitamin D2) [Vitamin D2] 2,000 unit PO DAILY 01/03/16 [History] Multivitamin/Iron/Folic Acid [Sentry Tablet] 1 each PO DAILY 01/03/16 [History] Sennosides/Docusate Sodium [Senna Plus Tablet] 1 tab PO BID 01/04/16 [History] ARIPiprazole [Abilify] 7.5 mg PO DAILY 12/09/16 [History] Polyethylene Glycol 3350 [MiraLAX] 17 gm PO ASDIRECTED 12/09/16 [History] Citalopram Hydrobromide [Celexa] 40 mg PO DAILY 12/29/17 [History] Phenytoin Sodium Extended [Dilantin] 30 mg PO ASDIRECTED 12/29/17 [History] Phenytoin [Dilantin] 60 mg PO TID 12/07/18 [History] Past Medical History HEENT History: Reports: Impaired Vision Other HEENT History: legally blind. 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 kyphosis. lordosis. spinal tumors causing spastic quadriparesis Neurological History: Reports: Seizure Other Neuro History: mild mental retardation Other Psychiatric History: mild MR - Past Surgical History Other Neurological Surgeries/Procedures: Brain shunt. Social & Family History - Family History Family Medical History: Noncontributory - Tobacco Use Smoking Status *Q: Unknown Ever Smoked - Living Situation & Occupation Living situation: Reports: Extended Care Facility Occupation: Disabled ED ROS GENERAL - Review of Systems Review Of Systems: See Below (history obtained from staff, patient is not responsive) Constitutional: Reports: Fever HEENT: Reports: No Symptoms Respiratory: Reports: No Symptoms Cardiovascular: Reports: No Symptoms Endocrine: Reports: No Symptoms GI/Abdominal: Reports: No Symptoms : Reports: No Symptoms Musculoskeletal: Reports: No Symptoms Skin: Reports: No Symptoms Neurological: Reports: Confusion, Difficulty Walking, Weakness Psychiatric: Reports: No Symptoms Hematologic/Lymphatic: Reports: No Symptoms Immunologic: Reports: No Symptoms - Physical Exam Exam: See Below Text/Narrative:: Patient currently post ictal and is not responsive to requests. Slight movement to look at you when she hears her name. Breathing is intact and airway is protected. As her stay progressed she became more interactive. Exam Limited By: Altered Mental Status General Appearance: Lethargic, Mild Distress, Obese Ears: Normal TMs Nose: Normal Inspection, Normal Mucosa, No Blood Throat/Mouth: Normal Inspection, Normal Lips, Normal Teeth, Normal Gums, Normal Oropharynx, Normal Voice, No Airway Compromise Head Exam: Atraumatic, Normocephalic Neck: Normal Inspection, Supple, Non-Tender, Full Range of Motion Respiratory/Chest: Decreased Breath Sounds, Rales Cardiovascular: Normal Peripheral Pulses, Tachycardia GI/Abdominal: Normal Bowel Sounds, Soft, Non-Tender, No Organomegaly, No Distention, No Abnormal Bruit, No Mass Neuro Exam (Abbreviated): Disoriented, Slow to Respond Extremities: Normal Inspection, Non-Tender, No Pedal Edema, Normal Capillary Refill Skin Exam: Warm, Intact, Normal Color, No Rash, Diaphoretic Course - Vital Signs Last Recorded V/S: Last Vital Signs Temp 40.1 C H 12/07/18 02:23 Pulse 134 H 12/07/18 02:23 Resp 28 H 12/07/18 02:23 BP 144/91 H 12/07/18 02:23 Pulse Ox 92 L 12/07/18 02:23 - Radiology Interpretation Free Text/Narrative:: x-ray shows bibasilar airspace infiltrates Departure - Departure Time of Disposition: 05:09 Disposition: Admitted As Inpatient 64 Condition: Fair Clinical Impression: Aspiration pneumonia of both lower lobes - Discharge Information *PRESCRIPTION DRUG MONITORING PROGRAM REVIEWED*: Not Applicable *COPY OF PRESCRIPTION DRUG MONITORING REPORT IN PATIENT MARTY: Not Applicable ED Communication - ED Communication Date/Time Date: 12/07/18 Time Called: 05:00 - Discussed Case With (1) Discussed Case With (1): Admitting Provider (Dr. Givens contacted regarding patient. He will accept and round as per usual.) - Problem List & Annotations (1) Aspiration pneumonia of both lower lobes SNOMED Code(s): 270365505, [id number] Code(s): J69.0 - PNEUMONITIS DUE TO INHALATION OF FOOD AND VOMIT Status: Acute Priority: Medium Current Visit: Yes Qualifiers: Aspiration pneumonia type: unspecified Qualified Code(s): J69.0 - Pneumonitis due to inhalation of food and vomit - Problem List Review Problem List Initiated/Reviewed/Updated: Yes - Assessment/Plan Assessment:: pneumonia, possible aspiration type Plan: admit acute to Dr. Givens
--- NOTE | 2018-12-07 07:33 | CR ---
[id number] RAD/RAD Chest PA or AP 1V EXAM: SINGLE VIEW CHEST. INDICATION: FEVER. SEPSIS COMPARISON: CORRELATION IS MADE WITH THE EXAM OF DECEMBER 09, 2016. FINDINGS: A pain control device is seen. There are bibasilar hypoventilatory changes. The cardiothymic silhouette is stable. A ventriculoperitoneal shunt again is seen. IMPRESSION: NO PNEUMONIA. Seven Clement MD 12/07/18 0732 Thank you for allowing us to participate in the care of your patient.
[2018-12-07] MEDS ORDERED: Acetaminophen 325 MG Tab PO PRN (10:23)
--- NOTE | 2018-12-07 10:34 | PCM.HP ---
H&P History of Present Illness - General Date of Service: 12/07/18 Admit Problem/Dx: Admission Diagnosis/Problem Admission Diagnosis/Problem Pneumonia - History of Present Illness Initial Comments - Free Text/Narative: History: She was brought to ER last evening with 2 days of coughing, fever going up to 104, dyspnea but apparently not much sputum. She also had a seizure, and a magnet was placed over her vagal nerve stimulator but this did not bring her out of the seizure, which eventually ended. [facility], no one else has had similar symptoms she says. [facility] nurses had not noticed that she was having any problems. Initially in the ER and on admit to the floor she was quite lethargic but then recovered, probably was postictal. She has already received 1 dose of Rocephin IV. Her WBC was 20,500 with a L shift, 77% neutrophils and 10% bands, and her lactic acid was 2.4, came down on repeat to 1.2, CRP 11.4. ALT is normal. CXR was thought to show bibasilar infiltrates but radiologist feels it is just hypoventilation. Since admission her temperature has been about 101. Mild hyponatremia, Na+ is 130. Says she has not had trouble with stooling, and is eating and drinking OK, no abdominal pain. She is on continuous Macrodantin for chronic cystitis, UA was negative. She has a seizure disorder, secondary to neurofibromatosis type I and congenital hydrocephalus, has about one seizure per week, and does not know when her last seizure was. 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 anes. 07/24; both brain and cord show neurofibromatosis, unchanged. Some hydrocephalus on brain, rep MRI 01/21 unchanged; rep. 07/25, 02/22 , 10/24, 11/23 -04/23 instead of continuous antibiotic, started UC by minicath q mo. -MRI head 07/25, 01/22 unchanged -Repeat Pap 09/22, OK, rep. 1 yr -01/[address] Calderón; F/U 04/24, Zoloft < , now q 2 mo plus a counselor in school -02/22 started continuous Macrodantin for recurrent UTI's -10/24 DEXA sp -1.9, hip -5.2; Vit D 25 (sl. >); Rx Ca++, Vit D 1000/600 daily -11/23 Generalized seizure, Hosp at ; recovered quickly, Trileptal dose < -12/24 MRI head and back seems unchanged, cont. F/U Peds Hem-Onc, Neuro -02/23 OK use of tilt table 5 d / wk, 5 min, < as darius. -Consults: Chiropractor 12/25, Neuro 12/25, Psych 01/24 -06/26 MRI lumbar, thoracic spine; some < in neurofibromas of cord -10/26 Rx HCTZ 12.5 mg q a.m. for mild ankle edema -Hosp 01/25 x 3 d. 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 Torres -07/26 paronychia L small finger, no result from I&D, lifting nailfold -11/28 R parietal ventriculoperitoneal shunt, had not had one previously, for increased seizures, obstructive hydrocephalus -09/03 placement of L vagal nerve stimulator for intractable seizures Family History: -F has mental health probs, maría. chemical dependency -M has neurofibromatosis, glaucoma -B has neurofibromatosis, had surgery for congenital heart disease Social History: New to [facility] 02/20, at [facility]. Ex [facility]. Has lived [place] . Needs cues for feeding, assistance w. dresssing, bathing, transferring, toileting. Unable to walk. Sees Dr. Hernández. Code level 1. Mother released from [facility] 06/21 (shoplifting), Father hosp [facility]. Guardian [facility] after 12/21 hearing to remove parental rights. Review of Systems (much of this from her OV11/12/18, with staff helping to answer questions): Constitutional: Gained only a little, eating well; helps with cooking but menus are prepared. HENT: Has own teeth and goes to dentist q 3 mo.; hearing OK Eyes: Gets eye exams and has F/U for the neurofibromatosis, sees Dr. Billings or [place] Respiratory: No problems with cough or flu this winter, had flu shot 04/03 Cardiovascular: No palpitations or chest pain Gastrointestinal: Just takes Miralax 3 days / week, works OK Endocrine: BS's OK, has hyperlipidemia but not enough to require Rx Genitourinary: Pap 10/31. Only rare menstrual cramps, thought to be amenorrheic from the ChemoRx Musculoskeletal: Bilateral AFO's, these could be otc now, latelyl no C/O pain in knees and hips Skin: Sees Derm here, has noticed no change in her large nevus Allergic/Immunologic: No seasonal allergies Neurological: Seizures much better with VNS, recent increase in Dilantin, see HPI Hematological:Negative except for her optic gliomas; no trouble with easy bruising or bleeding; off of Coumadin because we couldn't find a reason to be on it, doing OK w/o it Psychiatric/Behavioral: Last increase in antidepressants was late in , is on Celexa 40 mg, wants to continue the same Exam: General: VS OK except for fever, alert and answers questions appropriately Eyes: R exotropia, pupils equal ENT: TMs not reddened, oral hydration appears good, no redness Neck: No thyroid enlargement or masses Cardiac: Heart sounds normal and regular, mild tachycardia, 110 Chest: Lung sounds are clear, no tachypnea; oximetry good on room air Abdomen: Soft and nontender, no masses felt : No exam Extremities: She keeps her legs folded up under her, some muscle development of her legs however Neurologic: She moves both arms and has some spasticity, this not evaluated now Skin: Large nevus over most of her back, OK otherwise, warm and dry Psych: Calm and answers questions appropriately, affect appears normal Impression: -Fever, leukocytosis and abnormal lactic acid and CRP -Seizure, more prolonged than usual -Cough and lethargy, possibly acute bronchitis since CXR was read as negative; can't R/O aspiration from her seizure with CXR just not showing any problems yet -Has ventriculoperitoneal shunt, no sign of infection there, no stiff neck or headache Other problems: -Spastic diplegia -Seizure disorder -Osteoporosis -Obstructive hydrocephalus, with ventriculoperitoneal shunt -Neurofibromatosis type I -Mild intellectual disability -Chronic hyponatremia -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 -Vitamin D deficiency -Chronic recurrent UTI, on long-term suppression with Macrodantin -Mood disorder -Mild hyperlipidemia -Hx abnormal Pap, last 10/31 OK, will get every 3-5 years Plan: -Until we see improvement or find out why she has the fever and abnormal lab, she will be on IV Rocephin, with oral metronidazole until we are satisfied she does not have any aspiration -Repeat lab and x-ray tomorrow -[facility] will be shortstaffed over the weekend so she can go to [facility] when improved -[facility] will care for her this weekend - Related Data Allergies/Adverse Reactions: Allergies Allergy/AdvReac Type Severity Reaction Status Date / Time No Known Drug Allergies Allergy Other Verified 12/07/18 02:39 Home Medications: Home Meds Calcium Carbonate [Calcium] 500 mg PO BID 11/12/14 [History] Nitrofurantoin Macrocrystal [Nitrofurantoin] 100 mg PO DAILY 11/12/14 [History] OXcarbazepine [Oxcarbazepine] 600 mg PO BID 11/12/14 [History] Potassium Chloride [Klor-Con M20] 20 meq PO DAILY 11/12/14 [History] Cranberry 1 each PO DAILY 01/03/16 [History] Ergocalciferol (Vitamin D2) [Vitamin D2] 2,000 unit PO DAILY 01/03/16 [History] Multivitamin/Iron/Folic Acid [Sentry Tablet] 1 each PO DAILY 01/03/16 [History] Sennosides/Docusate Sodium [Senna Plus Tablet] 1 tab PO BID 01/04/16 [History] ARIPiprazole [Abilify] 7.5 mg PO DAILY 12/09/16 [History] Polyethylene Glycol 3350 [MiraLAX] 17 gm PO ASDIRECTED 12/09/16 [History] Citalopram Hydrobromide [Celexa] 40 mg PO DAILY 12/29/17 [History] Phenytoin Sodium Extended [Dilantin] 100 mg PO TID 12/29/17 [History] Phenytoin [Dilantin] 60 mg PO TID 12/07/18 [History] Past Medical History HEENT History: Reports: Impaired Vision Other HEENT History: legally blind. 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 kyphosis. lordosis. spinal tumors causing spastic quadriparesis Neurological History: Reports: Seizure Other Neuro History: mild mental retardation Other Psychiatric History: mild MR - Past Surgical History Other Neurological Surgeries/Procedures: Brain shunt. Social & Family History - Family History Family Medical History: Noncontributory - Tobacco Use Smoking Status *Q: Unknown Ever Smoked Second Hand Smoke Exposure: No - Caffeine Use Caffeine Use: Reports: Coffee, Soda - Recreational Drug Use Recreational Drug Use: No - Living Situation & Occupation Living situation: Reports: Extended Care Facility Occupation: Disabled H&P Review of Systems - Review of Systems: Review Of Systems: See Below Exam - Exam Exam: See Below - Vital Signs Vital Signs: Last Vital Signs Temp 39.5 C H 12/07/18 10:00 Pulse 117 H 12/07/18 10:00 Resp 20 12/07/18 10:00 BP 125/81 12/07/18 10:00 Pulse Ox 94 L 12/07/18 10:00 Weight: 63.503 kg - Patient Data Lab Results Last 24 hrs: Laboratory Results - last 24 hr 12/07/18 12/07/18 12/07/18 Range/Units 03:16 03:16 03:16 WBC 20.5 H* (4.0-10.0) x10^3/uL RBC 4.49 (4.00-5.50) x10^6/uL Hgb 14.3 (12.0-16.0) g/dL Hct 40.0 (33.0-47.0) % MCV 89.1 (78.0-93.0) fL MCH 31.8 (26.0-32.0) pg MCHC 35.8 (32.0-36.0) g/dL RDW Coeff of Prerna 11.7 (10.0-15.0) % Plt Count 204 (130-400) x10^3/uL Add Manual Diff Yes Neutrophils % (Manual) 77 (50-80) % Band Neutrophils % 10 H (0-6) % Lymphocytes % (Manual) 3 L (25-50) % Reactive Lymphs % 1 H (0) % Monocytes % (Manual) 7 (2-11) % Eosinophils % (Manual) 1 (0-4) % Basophils % (Manual) 1 (0-1) % Vacuolated Monocytes 1+ slight H Toxic Granulation 1+ slight H Platelet Estimate Adequate Sodium 130 L (136-145) mmol/L Potassium 3.6 (3.5-5.1) mmol/L Chloride 95 L (98-107) mmol/L Carbon Dioxide 22 (21-32) mmol/L Anion Gap 16.6 (10-20) mmol/L BUN 14 (7-18) mg/dL Creatinine 0.6 (0.55-1.02) mg/dL Est Cr Clr Drug Dosing TNP Estimated GFR (MDRD) > 60 Glucose 187 H (74-106) mg/dL Lactic Acid 2.4 H* (0.4-2.0) mmol/L Calcium 8.2 L (8.5-10.1) mg/dL Corrected Calcium 8.52 (8.5-10.1) mg/dL Magnesium 1.7 L (1.8-2.4) mg/dL Total Bilirubin 0.2 (0.2-1.0) mg/dL AST 19 (15-37) U/L ALT 46 (14-59) U/L Alkaline Phosphatase 133 H (46-116) U/L C-Reactive Protein 11.4 H (<=0.9) mg/dL Total Protein 7.4 (6.4-8.2) g/dL Albumin 3.6 (3.4-5.0) g/dL Globulin 3.8 Albumin/Globulin Ratio 0.95 Urine Color (YELLOW) Urine Appearance (CLEAR) Urine pH (5.0-8.0) Ur Specific [place] Urine Protein (NEGATIVE) mg/dL Urine Glucose (UA) (NEGATIVE) mg/dL Urine Ketones (NEGATIVE) mg/dL Urine Occult Blood (NEGATIVE) Urine Nitrite (NEGATIVE) Urine Bilirubin (NEGATIVE) Urine Urobilinogen (0.2) EU/dL Ur Leukocyte Esterase (NEGATIVE) Urine RBC (NOT SEEN) /HPF Urine WBC (NOT SEEN) /HPF Ur Squamous Epith Cells (NEGATIVE) /HPF Urine Bacteria (NEGATIVE) /HPF Hyaline Casts (NEGATIVE) /HPF Urine Mucus (NEGATIVE) /LPF Phenytoin (10-20) ug/mL 12/07/18 12/07/18 12/07/18 Range/Units 03:16 03:35 06:40 WBC (4.0-10.0) x10^3/uL RBC (4.00-5.50) x10^6/uL Hgb (12.0-16.0) g/dL Hct (33.0-47.0) % MCV (78.0-93.0) fL MCH (26.0-32.0) pg MCHC (32.0-36.0) g/dL RDW Coeff of Prerna (10.0-15.0) % Plt Count (130-400) x10^3/uL Add Manual Diff Neutrophils % (Manual) (50-80) % Band Neutrophils % (0-6) % Lymphocytes % (Manual) (25-50) % Reactive Lymphs % (0) % Monocytes % (Manual) (2-11) % Eosinophils % (Manual) (0-4) % Basophils % (Manual) (0-1) % Vacuolated Monocytes Toxic Granulation Platelet Estimate Sodium (136-145) mmol/L Potassium (3.5-5.1) mmol/L Chloride (98-107) mmol/L Carbon Dioxide (21-32) mmol/L Anion Gap (10-20) mmol/L BUN (7-18) mg/dL Creatinine (0.55-1.02) mg/dL Est Cr Clr Drug Dosing Estimated GFR (MDRD) Glucose (74-106) mg/dL Lactic Acid 1.2 (0.4-2.0) mmol/L Calcium (8.5-10.1) mg/dL Corrected Calcium (8.5-10.1) mg/dL Magnesium (1.8-2.4) mg/dL Total Bilirubin (0.2-1.0) mg/dL AST (15-37) U/L ALT (14-59) U/L Alkaline Phosphatase (46-116) U/L C-Reactive Protein (<=0.9) mg/dL Total Protein (6.4-8.2) g/dL Albumin (3.4-5.0) g/dL Globulin Albumin/Globulin Ratio Urine Color Yellow (YELLOW) Urine Appearance Clear (CLEAR) Urine pH 5.5 (5.0-8.0) Ur Specific [place] 1.020 Urine Protein 30 H (NEGATIVE) mg/dL Urine Glucose (UA) 100 H (NEGATIVE) mg/dL Urine Ketones Negative (NEGATIVE) mg/dL Urine Occult Blood Negative (NEGATIVE) Urine Nitrite Negative (NEGATIVE) Urine Bilirubin Negative (NEGATIVE) Urine Urobilinogen 0.2 (0.2) EU/dL Ur Leukocyte Esterase Negative (NEGATIVE) Urine RBC 0-5 (NOT SEEN) /HPF Urine WBC 0-5 (NOT SEEN) /HPF Ur Squamous Epith Cells Rare (NEGATIVE) /HPF Urine Bacteria Not seen (NEGATIVE) /HPF Hyaline Casts Rare H (NEGATIVE) /HPF Urine Mucus Rare H (NEGATIVE) /LPF Phenytoin 26 H* (10-20) ug/mL Result Diagrams: 12/07/18 03:16 12/07/18 03:16 Problem List Initiated/Reviewed/Updated: Yes Orders Last 24hrs: Active Orders 24 hr Category Date Time Status Patient Status [ADT] Routine ADT 12/07/18 05:02 Active CULTURE BLOOD [BC] Stat Lab 12/07/18 03:16 Received CULTURE BLOOD [BC] Stat Lab 12/07/18 03:24 Received CULTURE MRSA SURVEY [RM] Routine Lab 12/07/18 06:39 Received Blood Culture x2 Reflex Set [OM.PC] Stat Oth 12/07/18 02:48 Ordered Isolation [COMM] Routine Oth 12/07/18 05:40 Ordered
[2018-12-07] MEDS ORDERED: Polyethylene Glycol 3350 Powder 17 GM Packet PO PRN (12:15)
[2018-12-07] MEDS: Ondansetron 4 MG/2 ML SDV IVPUSH PRN ×2 (12:22→21:11)
[2018-12-07] MEDS ORDERED: Phenytoin 50 MG Tab.Chew PO SCH (12:30)
[2018-12-07] MEDS: ARIPiprazole 5 MG Tab PO SCH (15:01)
[2018-12-07] MEDS: Phenytoin 100 MG Cap.ER PO SCH ×3 (15:01→21:17)
[2018-12-07] MEDS: Citalopram 20 MG Tab PO SCH (15:02)
[2018-12-07] MEDS: Cranberry 500 MG Cap PO SCH (15:03)
[2018-12-07] MEDS: metroNIDAZOLE 500 MG Tab PO SCH ×2 (15:03→21:18)
[2018-12-07] MEDS: Calcium Carbonate 1,250 MG/5 ML Susp 5 ML UD Cup PO SCH ×2 (15:03→21:18)
[2018-12-07] MEDS: Potassium Chloride 20 MEQ Tab.ER PO SCH (15:04)
[2018-12-07] MEDS: OXcarbazepine 300 MG Tab PO SCH ×2 (15:04→21:15)
[2018-12-07] MEDS: cefTRIAXone 1 GM Vial IVPUSH SCH (21:11)
[2018-12-07] MEDS: Sodium Chloride 0.9% 10 ML Syringe IV PRN (21:37)
[2018-12-08] MEDS: metroNIDAZOLE 500 MG Tab PO SCH ×3 (04:13→20:34)
[2018-12-08] MEDS: Ondansetron 4 MG/2 ML SDV IVPUSH PRN ×2 (04:17→20:33)
[2018-12-08] MEDS: Sodium Chloride 0.9% 10 ML Syringe IV PRN ×2 (04:19→20:32)
[2018-12-08 08:07] LABS: CHLORIDE,CL 98 mmol/L (98-107); SODIUM,NA 134 mmol/L (136-145)
[2018-12-08 08:09] LABS: ANION GAP 15.8 mmol/L (10-20)
--- NOTE | 2018-12-08 08:24 | PN ---
Progress Note for HERRERA HENNESSY Date: 12/08/2018 Room #: VM.217 SUBJECTIVE: This is the patient's second hospital day for being admitted with fever, seizure, and probable aspiration pneumonia. She received Rocephin as well as metronidazole. Her temperature on admit had been up to 104 and she had some questionably congestion. Her white blood cell count was elevated to 20.5. Lactic acid initially was 2.4, on recheck it was down to 1.2. Since then, the patient has been regained her baseline alertness. She denies coughing. She sometimes does have some difficulty with swallowing. It was noted that her sodium was also low at 130 on admission. The patient does not normally walk, is normally in a wheelchair. OBJECTIVE: Vital Signs: Her temperature is 37.8, pulse 102, blood pressure is 116/73, sats are 96%, respiratory rate 16. General: The patient is alert, sitting in a chair. Heart: Regular rate and rhythm without murmurs or bruits. Lungs: Have diminished breath sounds on bases. Abdomen: Soft, nontender. The patient's abdomen is soft. The patient does not walk due to atrophy of her lower legs. LABORATORY DATA: Her lab work this morning is pending. Blood cultures so far are negative. IMPRESSION: 1. Febrile. 2. Seizure. 3. Probable aspiration pneumonia. PLAN: We will repeat the chest x-ray in the department today. We will continue her on Rocephin as well as metronidazole. We will add incentive spirometry to help improve respiratory symptoms and we will reassess lab work tomorrow. GM12/08/2018 07:58:58 MODL: 12/08/2018 08:16:27 /[id number]
[2018-12-08] MEDS: Phenytoin 100 MG Cap.ER PO SCH ×5 (08:34→20:37)
[2018-12-08] MEDS: OXcarbazepine 300 MG Tab PO SCH ×2 (08:35→20:34)
[2018-12-08] MEDS: ARIPiprazole 5 MG Tab PO SCH (08:36)
[2018-12-08] MEDS: Cholecalciferol (Vitamin D3) 1,000 Unit Tab PO SCH (08:37)
[2018-12-08] MEDS: Citalopram 20 MG Tab PO SCH (08:37)
[2018-12-08] MEDS: Cranberry 500 MG Cap PO SCH (08:38)
[2018-12-08] MEDS: Multivitamins with Iron/Calcium/Folic Acid/Minerals Tab PO SCH (08:38)
[2018-12-08] MEDS: Potassium Chloride 20 MEQ Tab.ER PO SCH (08:38)
[2018-12-08] MEDS: Calcium Carbonate 1,250 MG/5 ML Susp 5 ML UD Cup PO SCH ×2 (08:43→20:32)
--- NOTE | 2018-12-08 11:35 | CR ---
[id number] RAD/RAD Chest PA And Lateral EXAM: RAD Chest PA And Lateral INDICATION: FEBRILE, POSSIBLE ASPIRATION PNEUMONIA COMPARISON: December 07, 2018. DISCUSSION: Cardiomediastinal silhouette is normal in size and contour. No infiltrate, effusion, pneumothorax, or edema. Catheter tubing projects over the right chest, similar to the prior examination. IMPRESSION: Negative for pneumonia or other acute findings in the chest. Flynn Panchal MD 12/08/18 1134 Thank you for allowing us to participate in the care of your patient.
[2018-12-08] MEDS: cefTRIAXone 1 GM Vial IVPUSH SCH (20:32)
[2018-12-09] MEDS: metroNIDAZOLE 500 MG Tab PO SCH (06:16)
[2018-12-09] MEDS ORDERED: Phenytoin 100 MG Cap.ER PO SCH (08:00)
[2018-12-09 08:48] LABS: ANION GAP 15.7 mmol/L (10-20); CHLORIDE,CL 99 mmol/L (98-107); SODIUM,NA 135 mmol/L (136-145)
--- NOTE | 2018-12-09 08:53 | PN ---
Progress Note for HERRERA HENNESSY Date: 12/09/2018 Room #: .[facility] [place] SUBJECTIVE: She has had a good day. She has not had any further fever. She has been eating well, not coughing, and basically back to her baseline. OBJECTIVE: Vital Signs: Her temperature is 36.8 after a maximum of 38.3 last evening. Her pulse is 96, blood pressure is 114/75, respiratory rate is 16, saturation 96%. General: She is alert, pleasant to visit with. Heart: Regular rate and rhythm. Lungs: Have some questionable bronchial breath sounds on the right base. Abdomen: Soft. Neurologic: She is alert, at her baseline. LABORATORY DATA: Lab work is pending. Chest x-ray was done yesterday, which was read as no pneumonia. Her blood cultures are negative. She is also negative for methicillin-resistant Staphylococcus aureus. IMPRESSION: 1. Febrile seizure, possible pneumonia. 2. Developmentally delayed. PLAN: We will await the lab work today. I would like to switch her to oral antibiotics and either consider sending to her [facility] either today versus tomorrow. The patient has also improved with having incentive spirometer. GM12/09/2018 07:24:05 MODL: 12/09/2018 08:45:51 /[id number]
[2018-12-09] MEDS: Multivitamins with Iron/Calcium/Folic Acid/Minerals Tab PO SCH (09:02)
[2018-12-09] MEDS: Cranberry 500 MG Cap PO SCH (09:02)
[2018-12-09] MEDS: ARIPiprazole 5 MG Tab PO SCH (09:02)
[2018-12-09] MEDS: OXcarbazepine 300 MG Tab PO SCH (09:03)
[2018-12-09] MEDS: Cholecalciferol (Vitamin D3) 1,000 Unit Tab PO SCH (09:04)
[2018-12-09] MEDS: Citalopram 20 MG Tab PO SCH (09:04)
[2018-12-09] MEDS: Calcium Carbonate 1,250 MG/5 ML Susp 5 ML UD Cup PO SCH (09:06)
[2018-12-09] MEDS: Potassium Chloride 20 MEQ Tab.ER PO SCH (09:06)
[2018-12-09] MEDS: Phenytoin 100 MG Cap.ER PO SCH ×2 (09:08→12:03)
[2018-12-09] MEDS: Sodium Chloride 0.9% 10 ML Syringe IV PRN (09:13)
[2018-12-09 10:04] VITALS: BP 122/77
[2018-12-09] MEDS ORDERED: Cefuroxime 250 MG Tab PO SCH (11:38)
--- NOTE | 2018-12-09 11:43 | PCM.SN ---
- Free Text/Narrative Note: labs reviewed and are improved. [facility] able to accept pt. Will stop rocephin and metronidazole and place on ceftin. Will discharg pt home.
--- NOTE | 2018-12-09 13:21 | DISCH ---
PRIMARY DIAGNOSES: 1. Febrile seizure with secondary diagnosis of possible aspiration pneumonia. 2. Mental delay. 3. History of CONVEYOR MONITOR shunt. 4. Spastic diplegia. 5. Osteoporosis. 6. Obstructive hydrocephalus. 7. Neurofibromatosis type 1. 8. Mild intellectual disability. 9. Chronic hyponatremia. 10.Giant pigmented nevus. 11.Chiasmal optic nerve glioma. 12.Vitamin D deficiency. 13.Chronic urinary tract infection. 14.Mood disorder. 15.Mild hyperlipidemia. SUMMARY OF HISTORY AND PHYSICAL: The patient is a 28-year-old brought into the emergency room with coughing with a fever up to 104 with shortness of breath with not much sputum. She had a seizure and a magnet was placed over her vagal nerve stimulator, but this did not bring her out of her seizure, which eventually ended. She lives at a custodial. No one else had similar pain. [facility] nurses did not notice that she had been having any problems. Initially when she was admitted to the floor, she was quite lethargic and she was probably postictal. She had received 1 dose of Rocephin. White blood cell count was 20.5 with a left shift. Lactic acid was 2.4. Chest x-ray was thought to show bibasilar infiltrates, but the radiologist felt it could have been from hypoventilation. The patient's temperature was still running around 101. Her sodium on admission was 130. SUMMARY OF HOSPITAL COURSE: She received IV Rocephin, IV fluids to normalize her sodium. She had no further seizures. Her other lab work on admission showed that her lactic acid on recheck was down to 1.2. CRP was 11.4. Urinalysis came back normal. Her Dilantin level was 26, however, it was unclear as to when it was taken after her last medication dose. The patient's fever did improve at 38.3 by 12/08/2018 at 2200, however, the next morning it was down to 36.8 and 37. The patient was eating well. She had a followup chest x-ray that was done on 12/08/2018 which was read as normal with no evidence of a pneumonia. The patient had also been placed on metronidazole empirically for possible aspiration pneumonia. Lab work that was rechecked on 12/09/2018 showed her white blood cell count was down to 6.5, hemoglobin was 13.2, platelets 195, 72 segs, 16 lymphocytes, 2 reactive lymphocytes, sed rate was elevated at 37. Sodium had gone up to 135, potassium 3.7, creatinine 0.5, MDR was greater than 60. Her lactic acid by 12/08/2018 was down to 0.6. Her LFTs on 12/09/2018 showed her AST was 37, ALT was slightly elevated at 67, alkaline phosphatase 96. CRP had improved from 11.4 on admission, had gone up to 16.7, was now down to 7.1. Blood cultures were negative. Nares were negative for MRSA. MEDICATIONS AT TIME OF DISCHARGE: The patient was switched to Ceftin 250 mg 1 pill twice a day for 4 days at the time of discharge on 12/09/2018. Potassium chloride 20 mEq 1 pill daily, oxcarbazepine 600 mg b.i.d., nitrofurantoin 100 mg daily, calcium carbonate 500 mg b.i.d., multivitamin with folic acid 1 pill daily, cranberry 400 mg 1 pill daily, vitamin D 2000 units daily, senna plus 1 pill b.i.d., MiraLAX 17 g as directed, Celexa 40 mg daily, Dilantin 100 mg 1 pill 3 times a day (she was left at her admission dose), Dilantin 60 mg t.i.d., Abilify 7.5 mg daily, Tylenol 325 two pills q.4 hours p.r.n. fever, Ceftin 250 mg 1 pill b.i.d. for 4 days which will presumably start on 12/11/2018. DISCHARGE INSTRUCTIONS: The patient will continue to follow up with Dr. Givens in a weeks' time for evaluation. Her diet will be what she came into the hospital and her activities with her wheelchair and assistive devices are needed. The patient's code level at the time of discharge is full code. GM12/09/2018 12:11:13 MODL: 12/09/2018 13:11:10 /[id number]
== END 2018-12-09 14:05 | DRG 178 ==
LOC: VM.ED 02:17 → VM.MS 05:02
PROVIDERS: ADMIT Nurse Practitioner Family; ATTEND Family Medicine
DX: J69.0 Pneumonitis due to inhalation of food and vomit (principal); E87.1 Hypo-osmolality and hyponatremia; G80.1 Spastic diplegic cerebral palsy; G91.1 Obstructive hydrocephalus; C71.9 Malignant neoplasm of brain, unspecified; N39.0 Urinary tract infection, site not specified; G40.909 Epilepsy, unspecified, not intractable, without status epilepticus; M81.0 Age-related osteoporosis without current pathological fracture; H54.7 Unspecified visual loss; F70 Mild intellectual disabilities; F39 Unspecified mood [affective] disorder; E78.5 Hyperlipidemia, unspecified; Z79.899 Other long term (current) drug therapy; Q85.01 Neurofibromatosis, type 1; R62.50 Unspecified lack of expected normal physiological development in childhood; E55.9 Vitamin D deficiency, unspecified
CPT/HCPCS: 36415; 71045; 71046; 80048; 80053; 80185; 81001; 83605; 83735; 85007; 85025; 85027; 85652; 86140; 87040; 96361; 96374; 99285-25; A9270-GY; J0696; J2405; J7120

== ENCOUNTER 2021-03-03 20:19 | Emergency (ER) | payer MEDICARE, MEDICAID ==
--- NOTE | 2021-03-03 20:52 | EDM.PDOC ---
ED HPI GENERAL MEDICAL PROBLEM - General Chief Complaint: Neurological Problem Stated Complaint: SEIZURE Time Seen by Provider: 03/03/21 20:30 Source of Information: Reports: Patient History Limitations: Reports: No Limitations - History of Present Illness INITIAL COMMENTS - FREE TEXT/NARRATIVE: Nini is a 30 year old female who presents per EMS from the halfway after having a seizure. Seizure lasted several minutes, did not sustain any injuries during per staff. Staff relates she has been doing well, has not had a seizure for some time. Has not been ill as of late. No fevers, no recent nausea or vomiting other than an emesis during the actual seizure. No cough. Has been eating and drinking well. They do keep the residents out of the heat. Has had a history of hyponatremia so does have to watch her fluid intake but hasn't noted any recent changes with that. No medication changes. Onset: Today, Sudden Duration: Minutes:, Improving Location: Reports: Generalized Associated Symptoms: Denies: Chest Pain, Cough, Loss of Appetite, Nausea/Vomiting, Shortness of Breath - Related Data Allergies Allergy/AdvReac Type Severity Reaction Status Date / Time No Known Drug Allergies Allergy Other Verified 12/07/18 02:39 Home Meds: Home Meds Calcium Carbonate [Calcium] 500 mg PO BID 11/12/14 [History] Nitrofurantoin Macrocrystal [Nitrofurantoin] 100 mg PO DAILY 11/12/14 [History] Potassium Chloride [Klor-Con M20] 20 meq PO DAILY 11/12/14 [History] Cranberry 1 each PO DAILY 01/03/16 [History] Ergocalciferol (Vitamin D2) [Vitamin D2] 2,000 unit PO DAILY 01/03/16 [History] Multivitamin/Iron/Folic Acid [Sentry Tablet] 1 each PO DAILY 01/03/16 [History] Sennosides/Docusate Sodium [Senna Plus Tablet] 1 tab PO BID 01/04/16 [History] Polyethylene Glycol 3350 [MiraLAX] 17 gm PO ASDIRECTED 12/09/16 [History] ARIPiprazole [Abilify] 7.5 mg PO DAILY 12/07/18 [History] Acetaminophen [Tylenol] 650 mg PO Q4H PRN #30 tablet 12/09/18 [Rx] Potassium Chloride 10 meq PO DAILY #30 capsule.er 03/03/21 [Rx] Phenytoin Sodium Extended [Dilantin] 200 mg PO BID 03/04/21 [History] levETIRAcetam [Keppra] 500 mg PO BID 03/04/21 [History] Past Medical History HEENT History: Reports: Impaired Vision Other HEENT History: legally blind. 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 kyphosis. lordosis. spinal tumors causing spastic quadriparesis Neurological History: Reports: Seizure Other Neuro History: mild mental retardation Other Psychiatric History: mild MR - Past Surgical History Neurological Surgical History: Reports: Scoliosis Other Neurological Surgeries/Procedures: Brain shunt. Social & Family History - Family History Family Medical History: No Pertinent Family History - Tobacco Use Tobacco Use Status *Q: Never Tobacco User - Caffeine Use Caffeine Use: Reports: Coffee, Soda - Living Situation & Occupation Living situation: Reports: Extended Care Facility Occupation: Disabled ED ROS GENERAL - Review of Systems Review Of Systems: See Below (obtained per staff member) Constitutional: Denies: Fever, Chills, Malaise, Decreased Appetite HEENT: Denies: Ear Pain, Rhinitis, Throat Pain Respiratory: Denies: Shortness of Breath, Cough Cardiovascular: Reports: Edema. Denies: Chest Pain Endocrine: Denies: Fatigue GI/Abdominal: Reports: Vomiting. Denies: Abdominal Pain, Constipation, Diarrhea, Nausea : Reports: Incontinence Musculoskeletal: Reports: No Symptoms Skin: Reports: No Symptoms Neurological: Reports: Seizure Psychiatric: Reports: No Symptoms - Physical Exam Exam: See Below Exam Limited By: No Limitations General Appearance: WD/WN, No Apparent Distress, Lethargic Ears: Normal External Exam, Normal TMs Nose: Normal Inspection, Normal Mucosa, No Blood Throat/Mouth: Normal Inspection, Normal Oropharynx Head Exam: Normocephalic Neck: Normal Inspection, Supple, Non-Tender Respiratory/Chest: No Respiratory Distress, Lungs Clear, Normal Breath Sounds Cardiovascular: Regular Rate, Rhythm GI/Abdominal: Normal Bowel Sounds, Soft, Non-Tender Neuro Exam (Abbreviated): Other (replies thank you and yes to most questions asked after starting to arouse more) Extremities: Normal Inspection, No Pedal Edema Course - Vital Signs Last Recorded V/S: Last Vital Signs Temp 99.5 F 03/03/21 20:19 Pulse 118 H 03/03/21 20:19 Resp 20 03/03/21 20:19 BP 95/59 L 03/03/21 20:19 Pulse Ox 96 03/03/21 20:19 - Orders/Labs/Meds Orders: Active Orders 24 hr Category Date Time Status OXCARBAZEPINE [REF] Stat Lab 03/03/21 20:43 Received PHENYTOIN [REF] Stat Lab 03/03/21 20:43 Received Labs: Laboratory Tests 03/03/21 03/03/21 03/03/21 Range/Units 20:43 20:43 21:05 WBC 7.4 (4.0-10.0) x10^3/uL RBC 4.77 (4.00-5.50) x10^6/uL Hgb 15.0 (12.0-16.0) g/dL Hct 41.6 (33.0-47.0) % MCV 87.2 (78.0-93.0) fL MCH 31.4 (26.0-32.0) pg MCHC 36.1 H (32.0-36.0) g/dL RDW Coeff of Prerna 11.1 (10.0-15.0) % Plt Count 215 (130-400) x10^3/uL Immature Gran % (Auto) 0.40 (0.00-0.43) % Neut % (Auto) 46.5 L (50.0-80.0) % Lymph % (Auto) 42.7 (25.0-50.0) % [place] % (Auto) 8.2 (2.0-11.0) % Eos % (Auto) 1.8 (0.0-4.0) % Baso % (Auto) 0.4 (0.2-1.2) % Neut # (Auto) 3.5 (1.8-7.7) x10^3/uL Lymph # (Auto) 3.2 (1.0-4.8) x10^3/uL [place] # (Auto) 0.6 (0.0-0.8) x10^3/uL Eos # (Auto) 0.1 (0.0-0.5) x10^3/uL Baso # (Auto) 0.0 (0.0-0.2) x10^3/uL Immature Gran # (Auto) 0.03 (0.00-0.07) x10^3/uL Sodium 140 (136-145) mmol/L Potassium 3.2 L (3.5-5.1) mmol/L Chloride 102 (98-107) mmol/L Carbon Dioxide 18 L (21-32) mmol/L Anion Gap 23.2 H (5-15) mmol/L BUN 17 (7-18) mg/dL Creatinine 0.7 (0.55-1.02) mg/dL Est Cr Clr Drug Dosing TNP Estimated GFR (MDRD) > 60 Glucose 101 H (70-99) mg/dL Calcium 8.7 (8.5-10.1) mg/dL Corrected Calcium 9.0 (8.5-10.1) mg/dL Total Bilirubin 0.2 (0.2-1.0) mg/dL AST 31 (15-37) U/L ALT 44 (14-59) U/L Alkaline Phosphatase 86 (46-116) U/L Creatine Kinase 54 (26-192) U/L C-Reactive Protein < 0.2 (<=0.9) mg/dL Total Protein 7.0 (6.4-8.2) g/dL Albumin 3.6 (3.4-5.0) g/dL Globulin 3.4 Albumin/Globulin Ratio 1.06 Urine Color Yellow (YELLOW) Urine Appearance Clear (CLEAR) Urine pH 6.0 (5.0-8.0) Ur Specific [place] 1.015 Urine Protein 30 H (NEGATIVE) mg/dL Urine Glucose (UA) Negative (NEGATIVE) mg/dL Urine Ketones Negative (NEGATIVE) mg/dL Urine Occult Blood Negative (NEGATIVE) Urine Nitrite Negative (NEGATIVE) Urine Bilirubin Negative (NEGATIVE) Urine Urobilinogen 0.2 (0.2) EU/dL Ur Leukocyte Esterase Negative (NEGATIVE) Urine RBC 0-5 (NOT SEEN) /HPF Urine WBC 0-5 (NOT SEEN) /HPF Ur Squamous Epith Cells Rare (NOT SEEN) /HPF Urine Bacteria Rare (NOT SEEN) /HPF Urine Mucus Rare H (NOT SEEN) /LPF - Re-Assessments/Exams Free Text/Narrative Re-Assessment/Exam: 03/03/21 21:37 Labs note mildly low potassium level, other labs unremarkable. Dilantin and Trileptal results will be sent out, will need to be followed by her PCP. Departure - Departure Time of Disposition: 21:38 Disposition: Home, Self-Care 01 Condition: Good Clinical Impression: Seizure disorder, Hypokalemia - Discharge Information *PRESCRIPTION DRUG MONITORING PROGRAM REVIEWED*: No *COPY OF PRESCRIPTION DRUG MONITORING REPORT IN PATIENT MARTY: No Prescriptions: Potassium Chloride 10 meq PO DAILY #30 capsule.er Instructions: Hypokalemia Referrals: Dorita Valera MD [Primary Care Provider] - Forms: ED Department Discharge Additional Instructions: 1. Push fluids 2. Increase potassium by 10 meq daily, will add this to her medication regimen. Has been taking 20 meq in the am, add the 10 meq at suppertime 3. Will need to follow up with Dr. Valera in 2 weeks for repeat lab work 4. Contact Dr. Valera for results of her Dilantin and Trileptal levels 5. Call with any questions or concerns. Sepsis Event Note (ED) - Focused Exam Vital Signs: Vital Signs Temp Pulse Resp BP Pulse Ox 03/03/21 20:19 99.5 F 118 H 20 95/59 L 96 - My Orders Last 24 Hours: My Active Orders 03/03/21 20:43 OXCARBAZEPINE [REF] Stat PHENYTOIN [REF] Stat - Assessment/Plan Last 24 Hours: My Active Orders 03/03/21 20:43 OXCARBAZEPINE [REF] Stat PHENYTOIN [REF] Stat
[2021-03-03 21:13] LABS: ANION GAP 23.2 mmol/L (5-15); CHLORIDE,CL 102 mmol/L (98-107); SODIUM,NA 140 mmol/L (136-145)
[2021-03-03 21:14] VITALS: BP 95/59; PULSE 118
== END 2021-03-03 21:55 | disposition home or self-care (01) ==
LOC: VM.ED 20:19
DX: G40.909 Epilepsy, unspecified, not intractable, without status epilepticus (principal); E87.6 Hypokalemia
CPT/HCPCS: 36415; 80053; 80177; 80183; 80185; 81001; 82550; 85025; 86140; 99284

== ENCOUNTER 2021-04-12 18:05 | Inpatient (IN) | payer MEDICARE, MEDICAID ==
[~2021-04-12 18:05] MED LIST changes: -Ketorolac 30 MG/ML SDV IVPUSH ONE; -Ondansetron 4 MG/2 ML SDV IVPUSH ONE; +Piperacillin/Tazobactam 4.5 GM in Sodium Chloride 0.9% 100 ML IV ONE; -Sodium Chloride 0.9% 1,000 ML IV SCH; -Sodium Chloride 0.9% 10 ML Syringe FLUSH PRN
[2021-04-12] MEDS ORDERED: levETIRAcetam 1,000 MG in Sodium Chloride 0.9% 100 ML IV ONE (18:10)
[2021-04-12] MEDS ORDERED: levETIRAcetam in NaCl (iso-os) 500 MG in Premix Bag 1 BAG IV ONE ×2 (18:10)
--- NOTE | 2021-04-12 18:49 | EDM.PDOC ---
ED HPI GENERAL MEDICAL PROBLEM - General Stated Complaint: SEIZURE Time Seen by Provider: 04/12/21 18:05 Source of Information: Reports: EMS, Other (long-term staff.) History Limitations: Reports: Altered Mental Status, Physical Impairment - History of Present Illness INITIAL COMMENTS - FREE TEXT/NARRATIVE: Pt. presents to ER via EMS with a seizure that has lasted approx. 30 min. Pt. has a history of seizure disorder, obstructive hydrocephalus,intellectual disability, and neurofibromatosis. She is currently on dilantin 200mg BID, keppra 500mg QAM and 100mg QHS. Staff states that she complained of having a sore throat shortly before the start of the seizure. She also had vomiting shortly before the seizure as well and generally was not feeling well. Protocol is for them to call 911 for seizure lasting longer than 5 min. EMS arrived. Pt. was experiencing full body, grand mal seizure. Pt. was given a total of 7.5mg valium during transport (5mg, then 2.5mg) which briefly stopped the seizure. She started seizing again shortly after arrival to ER. Staff states that she has had no other complaints. She was able to work today. They deny any trauma. No complaints of nausea or diarrhea prior to her vomiting episode tonight. Onset: Today Onset Date: 04/13/21 Location: Reports: Generalized - Related Data Allergies Allergy/AdvReac Type Severity Reaction Status Date / Time No Known Drug Allergies Allergy Other Verified 04/12/21 19:12 Home Meds: Home Meds Calcium Carbonate [Calcium] 500 mg PO BID 11/12/14 [History] Nitrofurantoin Macrocrystal [Nitrofurantoin] 100 mg PO DAILY 11/12/14 [History] Cranberry 1 each PO DAILY 01/03/16 [History] Multivitamin/Iron/Folic Acid [Sentry Tablet] 1 each PO DAILY 01/03/16 [History] Sennosides/Docusate Sodium [Senna Plus Tablet] 1 tab PO BID 01/04/16 [History] Polyethylene Glycol 3350 [MiraLAX] 17 gm PO MOWEFR 12/09/16 [History] ARIPiprazole [Abilify] 7.5 mg PO DAILY 12/07/18 [History] Potassium Chloride 10 meq PO DAILY #30 capsule.er 03/03/21 [Rx] Phenytoin Sodium Extended [Dilantin] 200 mg PO BID 03/04/21 [History] levETIRAcetam [Keppra] 500 mg PO DAILY 03/04/21 [History] Cholecalciferol (Vitamin D3) [Vitamin D3] 2,000 unit PO DAILY 04/12/21 [History] Sertraline [Zoloft] 50 mg PO BEDTIME 04/12/21 [History] levETIRAcetam [Keppra] 1,000 mg PO BEDTIME 04/12/21 [History] Past Medical History HEENT History: Reports: Impaired Vision Other HEENT History: legally blind. 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 kyphosis. lordosis. spinal tumors causing spastic quadriparesis Neurological History: Reports: Seizure Other Neuro History: mild mental retardation Other Psychiatric History: mild MR - Past Surgical History Neurological Surgical History: Reports: Scoliosis Other Neurological Surgeries/Procedures: Brain shunt. Social & Family History - Family History Family Medical History: No Pertinent Family History - Caffeine Use Caffeine Use: Reports: Coffee, Soda - Living Situation & Occupation Living situation: Reports: Extended Care Facility Occupation: Disabled ED ROS GENERAL - Review of Systems Review Of Systems: Unable To Obtain Reason Not Obtained: Unresponsive/postictal ED EXAM, GENERAL - Physical Exam Exam: See Below Exam Limited By: Altered Mental Status General Appearance: Alert, WD/WN, No Apparent Distress Eye Exam: Bilateral Eye: EOMI, PERRL, Other (dysconjugate gaze) Ears: Normal External Exam, Normal Canal, Hearing Grossly Normal, Normal TMs Ear Exam: Bilateral Ear: Auricle Normal, Canal Normal, TM normal Nose: Normal Inspection, Normal Mucosa Throat/Mouth: Normal Inspection, Normal Lips, Normal Teeth, No Airway Compromise, Inflammation (Mild erythema to hypopharynx) Head: Atraumatic, Normocephalic Neck: Normal Inspection, Supple Respiratory/Chest: Lungs Clear, Normal Breath Sounds, No Accessory Muscle Use, Chest Non-Tender Cardiovascular: Normal Peripheral Pulses, No Edema, No JVD, No Murmur, Tachycardia Peripheral Pulses: 4+: Radial (L) GI/Abdominal: Soft, Non-Tender, No Organomegaly, No Distention, No Mass (Female) Exam: Deferred Rectal (Female) Exam: Deferred Extremities: Normal Inspection, No Pedal Edema, Normal Capillary Refill Neurological: Other (Initially postictal, unresponsive. Now localizes discomfort.) Skin Exam: Warm, Dry, Diaphoretic (mildly diaphoretic on arrival) #1 Interpretation Rhythm: NSR [place]: Normal P-Wave: Present QRS: Normal ST-T: Normal QT: Normal EKG Interpretation Comments: Sinus tach Course - Vital Signs Last Recorded V/S: Last Vital Signs Temp 37.1 C 04/13/21 06:00 Pulse 106 H 04/13/21 06:00 Resp 18 04/13/21 06:00 BP 93/53 L 04/13/21 06:00 Pulse Ox 97 04/13/21 06:00 - Orders/Labs/Meds Orders: Active Orders 24 hr Category Date Time Status Chest Abdomen Pelvis w Cont [CT] Stat Exams 04/12/21 19:12 Taken Head wo Cont [CT] Stat Exams 04/12/21 18:51 Taken Soft Tissue Neck w Cont [CT] Stat Exams 04/12/21 19:33 Taken CULTURE BLOOD [BC] Stat Lab 04/12/21 18:26 Received CULTURE BLOOD [BC] Stat Lab 04/12/21 18:30 Received LEVETIRACETAM, S [REF] Stat Lab 04/12/21 18:26 Received PHENYTOIN [REF] Stat Lab 04/12/21 18:26 Received Sodium Chloride 0.9% [Normal Saline] 1,000 ml Med 04/12/21 19:00 Active IV ASDIRECTED Sodium Chloride 0.9% [Normal Saline] 1,000 ml Med 04/12/21 20:30 Active IV ASDIRECTED Sodium Chloride 0.9% [Saline Flush] Med 04/12/21 19:02 Active 10 ml FLUSH ASDIRECTED PRN Blood Culture x2 Reflex Set [OM.PC] Stat Oth 04/12/21 18:15 Ordered Peripheral IV Insertion Adult [OM.PC] Routine Oth 04/12/21 19:03 Ordered Medication Orders Acetaminophen (Acetaminophen 650 Mg Supp) 650 mg RECTAL Q4H PRN PRN Reason: Mild pain/fever Last Admin: 04/13/21 02:14 Dose: 650 mg Documented by: SODEHEA Acetaminophen (Acetaminophen 325 Mg Tab) 650 mg PO Q4H PRN PRN Reason: FEVER OVER 103 F Aripiprazole (Aripiprazole 5 Mg Tab) 7.5 mg PO DAILY [facility] Enoxaparin Sodium (Enoxaparin 40 Mg/0.4 Ml Syringe) 40 mg SUBCUT DAILY [facility] Last Admin: 04/12/21 22:42 Dose: 40 mg Documented by: CARLEHEA Sodium Chloride (Normal Saline) 1,000 mls @ 1,000 mls/hr IV ASDIRECTED CARLOS Last Admin: 04/12/21 19:15 Dose: 1,000 mls/hr Documented by: PERLA Sodium Chloride (Normal Saline) 1,000 mls @ 1,000 mls/hr IV ASDIRECTED CARLOS Last Admin: 04/12/21 20:28 Dose: 1,000 mls/hr Documented by: PERLA Vancomycin HCl 1 gm/ Sodium (Chloride) 250 mls @ 250 mls/hr IV Q12H CARLOS Sodium Chloride (Normal Saline) 1,000 mls @ 100 mls/hr IV ASDIRECTED [facility] Last Admin: 04/12/21 22:42 Dose: 100 mls/hr Documented by: LEENAEA Piperacillin Sod/Tazobactam (Sod 3.375 gm/ Sodium Chloride) 100 mls @ 25 mls/hr IV Q8H CARLOS Levetiracetam (Levetiracetam 500 Mg Tab) 1,000 mg PO BEDTIME [facility] Levetiracetam (Levetiracetam 500 Mg Tab) 500 mg PO DAILY [facility] Ondansetron HCl (Ondansetron 4 Mg/2 Ml Sdv) 4 mg IV Q4H PRN PRN Reason: Nausea/Vomiting Last Admin: 04/13/21 01:49 Dose: 4 mg Documented by: LEENAEA Phenytoin Sodium (Phenytoin 100 Mg Cap.Er) 200 mg PO BID [facility] Potassium Chloride (Potassium Chloride 10 Meq Tab.Er) 10 meq PO DAILY [facility] Sertraline HCl (Sertraline 50 Mg Tab) 50 mg PO BEDTIME [facility] Sodium Chloride (Sodium Chloride 0.9% 10 Ml Syringe) 10 ml FLUSH ASDIRECTED PRN PRN Reason: Keep Vein Open Vancomycin HCl (Pharmacy To Dose - Vancomycin) 1 dose .XX ASDIRECTED [facility] Labs: Laboratory Tests 04/12/21 04/12/21 04/12/21 Range/Units 18:26 18:26 18:26 WBC 27.3 H* (4.0-10.0) x10^3/uL RBC 4.69 (4.00-5.50) x10^6/uL Hgb 14.7 (12.0-16.0) g/dL Hct 43.0 (33.0-47.0) % MCV 91.7 D (78.0-93.0) fL MCH 31.3 (26.0-32.0) pg MCHC 34.2 (32.0-36.0) g/dL RDW Coeff of Prerna 11.1 (10.0-15.0) % Plt Count 286 (130-400) x10^3/uL Add Manual Diff Yes Neutrophils % (Manual) 62 (50-80) % Band Neutrophils % 2 (0-6) % Lymphocytes % (Manual) 27 (25-50) % Monocytes % (Manual) 8 (2-11) % Metamyelocytes % 1 H (0) % Immature Gran # 0.27 H (0.00-0.07) X10^3/Ul Absolute Neutrophils 17.5 H (1.8-7.7) x10^3/uL Lymphocytes # (Manual) 7.4 H (1.0-4.8) x10^3/uL Monocytes # (Manual) 2.2 H (0.0-0.8) x10^3/uL Platelet Estimate Adequate PT 11.0 (9.9-12.5) SEC INR 1.0 L (2.0-3.5) APTT (25.6-32.8) SEC POC ABG pH (7.35-7.45) pH POC ABG pCO2 (35-48) mmHg POC ABG pO2 (83-108) mmHg POC ABG HCO3 (21-28) mmol/L POC ABG Total CO2 (22-29) mmol/L POC ABG O2 Sat (94-98) % POC ABG Base Excess ((-2)-3) mmol/L POC FiO2 Sodium 137 (136-145) mmol/L Potassium 3.7 (3.5-5.1) mmol/L Chloride 100 (98-107) mmol/L Carbon Dioxide 13 L (21-32) mmol/L Anion Gap 27.7 H (5-15) mmol/L BUN 10 (7-18) mg/dL Creatinine 1.0 (0.55-1.02) mg/dL Est Cr Clr Drug Dosing TNP Estimated GFR (MDRD) > 60 Glucose 301 H (70-99) mg/dL Lactic Acid (0.4-2.0) mmol/L Calcium 8.4 L (8.5-10.1) mg/dL Corrected Calcium 8.8 (8.5-10.1) mg/dL Phosphorus 5.0 H (2.6-4.7) mg/dL Magnesium 2.0 (1.8-2.4) mg/dL Total Bilirubin 0.2 (0.2-1.0) mg/dL AST 22 (15-37) U/L ALT 35 (14-59) U/L Alkaline Phosphatase 111 (46-116) U/L Troponin I High Sens 47 (<=51) ng/L C-Reactive Protein 11.0 H (<=0.9) mg/dL Total Protein 7.2 (6.4-8.2) g/dL Albumin 3.5 (3.4-5.0) g/dL Globulin 3.7 Albumin/Globulin Ratio 0.95 Procalcitonin (0.1-0.50) ng/mL TSH, Ultra Sensitive 2.768 (0.358-3.74) uIU/mL Urine Color (YELLOW) Urine Appearance (CLEAR) Urine pH (5.0-8.0) Ur Specific [place] Urine Protein (NEGATIVE) mg/dL Urine Glucose (UA) (NEGATIVE) mg/dL Urine Ketones (NEGATIVE) mg/dL Urine Occult Blood (NEGATIVE) Urine Nitrite (NEGATIVE) Urine Bilirubin (NEGATIVE) Urine Urobilinogen (0.2) EU/dL Ur Leukocyte Esterase (NEGATIVE) Urine RBC (NOT SEEN) /HPF Urine WBC (NOT SEEN) /HPF Ur Squamous Epith Cells (NOT SEEN) /HPF Urine Bacteria (NOT SEEN) /HPF Urine Mucus (NOT SEEN) /LPF Influenza Type A RNA (NEGATIVE) Influenza Type B RNA (NEGATIVE) SARS-CoV-2 RNA (TATYANA) (NEGATIVE) Group A Strep (PCR) (NOT DETECT) 04/12/21 04/12/21 04/12/21 Range/Units 18:26 18:26 18:26 WBC (4.0-10.0) x10^3/uL RBC (4.00-5.50) x10^6/uL Hgb (12.0-16.0) g/dL Hct (33.0-47.0) % MCV (78.0-93.0) fL MCH (26.0-32.0) pg MCHC (32.0-36.0) g/dL RDW Coeff of Prerna (10.0-15.0) % Plt Count (130-400) x10^3/uL Add Manual Diff Neutrophils % (Manual) (50-80) % Band Neutrophils % (0-6) % Lymphocytes % (Manual) (25-50) % Monocytes % (Manual) (2-11) % Metamyelocytes % (0) % Immature Gran # (0.00-0.07) X10^3/Ul Absolute Neutrophils (1.8-7.7) x10^3/uL Lymphocytes # (Manual) (1.0-4.8) x10^3/uL Monocytes # (Manual) (0.0-0.8) x10^3/uL Platelet Estimate PT (9.9-12.5) SEC INR (2.0-3.5) APTT 26.7 (25.6-32.8) SEC POC ABG pH (7.35-7.45) pH POC ABG pCO2 (35-48) mmHg POC ABG pO2 (83-108) mmHg POC ABG HCO3 (21-28) mmol/L POC ABG Total CO2 (22-29) mmol/L POC ABG O2 Sat (94-98) % POC ABG Base Excess ((-2)-3) mmol/L POC FiO2 Sodium (136-145) mmol/L Potassium (3.5-5.1) mmol/L Chloride (98-107) mmol/L Carbon Dioxide (21-32) mmol/L Anion Gap (5-15) mmol/L BUN (7-18) mg/dL Creatinine (0.55-1.02) mg/dL Est Cr Clr Drug Dosing Estimated GFR (MDRD) Glucose (70-99) mg/dL Lactic Acid 14.2 H* (0.4-2.0) mmol/L Calcium (8.5-10.1) mg/dL Corrected Calcium (8.5-10.1) mg/dL Phosphorus (2.6-4.7) mg/dL Magnesium (1.8-2.4) mg/dL Total Bilirubin (0.2-1.0) mg/dL AST (15-37) U/L ALT (14-59) U/L Alkaline Phosphatase (46-116) U/L Troponin I High Sens (<=51) ng/L C-Reactive Protein (<=0.9) mg/dL Total Protein (6.4-8.2) g/dL Albumin (3.4-5.0) g/dL Globulin Albumin/Globulin Ratio Procalcitonin 0.33 (0.1-0.50) ng/mL TSH, Ultra Sensitive (0.358-3.74) uIU/mL Urine Color (YELLOW) Urine Appearance (CLEAR) Urine pH (5.0-8.0) Ur Specific [place] Urine Protein (NEGATIVE) mg/dL Urine Glucose (UA) (NEGATIVE) mg/dL Urine Ketones (NEGATIVE) mg/dL Urine Occult Blood (NEGATIVE) Urine Nitrite (NEGATIVE) Urine Bilirubin (NEGATIVE) Urine Urobilinogen (0.2) EU/dL Ur Leukocyte Esterase (NEGATIVE) Urine RBC (NOT SEEN) /HPF Urine WBC (NOT SEEN) /HPF Ur Squamous Epith Cells (NOT SEEN) /HPF Urine Bacteria (NOT SEEN) /HPF Urine Mucus (NOT SEEN) /LPF Influenza Type A RNA (NEGATIVE) Influenza Type B RNA (NEGATIVE) SARS-CoV-2 RNA (TATYANA) (NEGATIVE) Group A Strep (PCR) (NOT DETECT) 04/12/21 04/12/21 04/12/21 Range/Units 18:36 18:39 18:59 WBC (4.0-10.0) x10^3/uL RBC (4.00-5.50) x10^6/uL Hgb (12.0-16.0) g/dL Hct (33.0-47.0) % MCV (78.0-93.0) fL MCH (26.0-32.0) pg MCHC (32.0-36.0) g/dL RDW Coeff of Prerna (10.0-15.0) % Plt Count (130-400) x10^3/uL Add Manual Diff Neutrophils % (Manual) (50-80) % Band Neutrophils % (0-6) % Lymphocytes % (Manual) (25-50) % Monocytes % (Manual) (2-11) % Metamyelocytes % (0) % Immature Gran # (0.00-0.07) X10^3/Ul Absolute Neutrophils (1.8-7.7) x10^3/uL Lymphocytes # (Manual) (1.0-4.8) x10^3/uL Monocytes # (Manual) (0.0-0.8) x10^3/uL Platelet Estimate PT (9.9-12.5) SEC INR (2.0-3.5) APTT (25.6-32.8) SEC POC ABG pH (7.35-7.45) pH POC ABG pCO2 (35-48) mmHg POC ABG pO2 (83-108) mmHg POC ABG HCO3 (21-28) mmol/L POC ABG Total CO2 (22-29) mmol/L POC ABG O2 Sat (94-98) % POC ABG Base Excess ((-2)-3) mmol/L POC FiO2 Sodium (136-145) mmol/L Potassium (3.5-5.1) mmol/L Chloride (98-107) mmol/L Carbon Dioxide (21-32) mmol/L Anion Gap (5-15) mmol/L BUN (7-18) mg/dL Creatinine (0.55-1.02) mg/dL Est Cr Clr Drug Dosing Estimated GFR (MDRD) Glucose (70-99) mg/dL Lactic Acid (0.4-2.0) mmol/L Calcium (8.5-10.1) mg/dL Corrected Calcium (8.5-10.1) mg/dL Phosphorus (2.6-4.7) mg/dL Magnesium (1.8-2.4) mg/dL Total Bilirubin (0.2-1.0) mg/dL AST (15-37) U/L ALT (14-59) U/L Alkaline Phosphatase (46-116) U/L Troponin I High Sens (<=51) ng/L C-Reactive Protein (<=0.9) mg/dL Total Protein (6.4-8.2) g/dL Albumin (3.4-5.0) g/dL Globulin Albumin/Globulin Ratio Procalcitonin (0.1-0.50) ng/mL TSH, Ultra Sensitive (0.358-3.74) uIU/mL Urine Color Yellow (YELLOW) Urine Appearance Clear (CLEAR) Urine pH 5.5 (5.0-8.0) Ur Specific [place] 1.020 Urine Protein 100 H (NEGATIVE) mg/dL Urine Glucose (UA) 100 H (NEGATIVE) mg/dL Urine Ketones Negative (NEGATIVE) mg/dL Urine Occult Blood Negative (NEGATIVE) Urine Nitrite Negative (NEGATIVE) Urine Bilirubin Negative (NEGATIVE) Urine Urobilinogen 0.2 (0.2) EU/dL Ur Leukocyte Esterase Negative (NEGATIVE) Urine RBC 0-5 (NOT SEEN) /HPF Urine WBC 0-5 (NOT SEEN) /HPF Ur Squamous Epith Cells Rare (NOT SEEN) /HPF Urine Bacteria Rare (NOT SEEN) /HPF Urine Mucus Occasional H (NOT SEEN) /LPF Influenza Type A RNA Negative (NEGATIVE) Influenza Type B RNA Negative (NEGATIVE) SARS-CoV-2 RNA (TATYANA) Negative (NEGATIVE) Group A Strep (PCR) Not detected (NOT DETECT) 04/12/21 04/12/21 Range/Units 19:27 21:10 WBC (4.0-10.0) x10^3/uL RBC (4.00-5.50) x10^6/uL Hgb (12.0-16.0) g/dL Hct (33.0-47.0) % MCV (78.0-93.0) fL MCH (26.0-32.0) pg MCHC (32.0-36.0) g/dL RDW Coeff of Prerna (10.0-15.0) % Plt Count (130-400) x10^3/uL Add Manual Diff Neutrophils % (Manual) (50-80) % Band Neutrophils % (0-6) % Lymphocytes % (Manual) (25-50) % Monocytes % (Manual) (2-11) % Metamyelocytes % (0) % Immature Gran # (0.00-0.07) X10^3/Ul Absolute Neutrophils (1.8-7.7) x10^3/uL Lymphocytes # (Manual) (1.0-4.8) x10^3/uL Monocytes # (Manual) (0.0-0.8) x10^3/uL Platelet Estimate PT (9.9-12.5) SEC INR (2.0-3.5) APTT (25.6-32.8) SEC POC ABG pH 7.36 (7.35-7.45) pH POC ABG pCO2 32 L (35-48) mmHg POC ABG pO2 141 H (83-108) mmHg POC ABG HCO3 17.7 L (21-28) mmol/L POC ABG Total CO2 18.6 L (22-29) mmol/L POC ABG O2 Sat 99.1 H (94-98) % POC ABG Base Excess -8 L ((-2)-3) mmol/L POC FiO2 80 Sodium (136-145) mmol/L Potassium (3.5-5.1) mmol/L Chloride (98-107) mmol/L Carbon Dioxide (21-32) mmol/L Anion Gap (5-15) mmol/L BUN (7-18) mg/dL Creatinine (0.55-1.02) mg/dL Est Cr Clr Drug Dosing Estimated GFR (MDRD) Glucose (70-99) mg/dL Lactic Acid 2.0 (0.4-2.0) mmol/L Calcium (8.5-10.1) mg/dL Corrected Calcium (8.5-10.1) mg/dL Phosphorus (2.6-4.7) mg/dL Magnesium (1.8-2.4) mg/dL Total Bilirubin (0.2-1.0) mg/dL AST (15-37) U/L ALT (14-59) U/L Alkaline Phosphatase (46-116) U/L Troponin I High Sens (<=51) ng/L C-Reactive Protein (<=0.9) mg/dL Total Protein (6.4-8.2) g/dL Albumin (3.4-5.0) g/dL Globulin Albumin/Globulin Ratio Procalcitonin (0.1-0.50) ng/mL TSH, Ultra Sensitive (0.358-3.74) uIU/mL Urine Color (YELLOW) Urine Appearance (CLEAR) Urine pH (5.0-8.0) Ur Specific [place] Urine Protein (NEGATIVE) mg/dL Urine Glucose (UA) (NEGATIVE) mg/dL Urine Ketones (NEGATIVE) mg/dL Urine Occult Blood (NEGATIVE) Urine Nitrite (NEGATIVE) Urine Bilirubin (NEGATIVE) Urine Urobilinogen (0.2) EU/dL Ur Leukocyte Esterase (NEGATIVE) Urine RBC (NOT SEEN) /HPF Urine WBC (NOT SEEN) /HPF Ur Squamous Epith Cells (NOT SEEN) /HPF Urine Bacteria (NOT SEEN) /HPF Urine Mucus (NOT SEEN) /LPF Influenza Type A RNA (NEGATIVE) Influenza Type B RNA (NEGATIVE) SARS-CoV-2 RNA (TATYANA) (NEGATIVE) Group A Strep (PCR) (NOT DETECT) Meds: Medications Generic Name Dose Route Start Last Admin Trade Name Freq PRN Reason Stop Dose Admin Acetaminophen 650 mg 04/12/21 22:10 04/13/21 02:14 Acetaminophen 650 Mg Supp RECTAL 650 mg Q4H PRN Administration Mild pain/fever Acetaminophen 650 mg 04/12/21 22:22 Acetaminophen 325 Mg Tab PO Q4H PRN FEVER OVER 103 F Aripiprazole 7.5 mg 04/13/21 08:00 Aripiprazole 5 Mg Tab PO DAILY CARLOS Enoxaparin Sodium 40 mg 04/12/21 22:15 04/12/21 22:42 Enoxaparin 40 Mg/0.4 Ml Syringe SUBCUT 40 mg DAILY CARLOS Administration Sodium Chloride 1,000 mls @ 1,000 mls/hr 04/12/21 19:00 04/12/21 19:15 Normal Saline IV 1,000 mls/hr ASDIRECTED CARLOS Administration Sodium Chloride 1,000 mls @ 1,000 mls/hr 04/12/21 20:30 04/12/21 20:28 Normal Saline IV 1,000 mls/hr ASDIRECTED CARLOS Administration Vancomycin HCl 1 gm/ Sodium 250 mls @ 250 mls/hr 04/13/21 08:00 Chloride IV Q12H CARLOS Sodium Chloride 1,000 mls @ 100 mls/hr 04/12/21 22:30 04/12/21 22:42 Normal Saline IV 100 mls/hr ASDIRECTED CARLOS Administration Piperacillin Sod/Tazobactam 100 mls @ 25 mls/hr 04/13/21 12:00 Sod 3.375 gm/ Sodium Chloride IV Q8H CARLOS Levetiracetam 1,000 mg 04/13/21 20:00 Levetiracetam 500 Mg Tab PO BEDTIME CAR[facility]OS Levetiracetam 500 mg 04/13/21 08:00 Levetiracetam 500 Mg Tab PO DAILY [facility] Ondansetron HCl 4 mg 04/12/21 22:10 04/13/21 01:49 Ondansetron 4 Mg/2 Ml Sdv IV 4 mg Q4H PRN Administration Nausea/Vomiting Phenytoin Sodium 200 mg 04/13/21 08:00 Phenytoin 100 Mg Cap.Er PO BID CARLOS Potassium Chloride 10 meq 04/13/21 08:00 Potassium Chloride 10 Meq Tab.Er PO DAILY [facility] Sertraline HCl 50 mg 04/13/21 20:00 Sertraline 50 Mg Tab PO BEDTIME CARLOS Sodium Chloride 10 ml 04/12/21 19:02 Sodium Chloride 0.9% 10 Ml Syringe FLUSH ASDIRECTED PRN Keep Vein Open Vancomycin HCl 1 dose 04/12/21 22:30 Pharmacy To Dose - Vancomycin .XX ASDIRECTED CARLOS Discontinued Medications Generic Name Dose Route Start Last Admin Trade Name Freq PRN Reason Stop Dose Admin Acetaminophen 650 mg 04/12/21 18:51 04/12/21 19:05 Acetaminophen 650 Mg Supp RECTAL 04/12/21 18:52 650 mg NOW ONE Administration Acetaminophen 325 mg 04/12/21 18:53 04/12/21 19:05 Acetaminophen 325 Mg Supp RECTAL 04/12/21 18:54 325 mg NOW ONE Administration Diazepam 5 mg 04/12/21 18:09 04/12/21 18:15 Diazepam 10 Mg/2 Ml Syringe IVPUSH 04/12/21 18:10 5 mg STAT ONE Administration Levetiracetam 500 mg/ Premix 100 mls @ 400 mls/hr 04/12/21 18:10 04/12/21 18:24 IV 04/12/21 18:24 400 mls/hr ONETIME ONE Administration Levetiracetam 1,000 mg/ Sodium 110 mls @ 400 mls/hr 04/12/21 18:10 04/13/21 00:58 Chloride IV 04/12/21 18:24 Not Given ONETIME ONE Piperacillin Sod/Tazobactam 100 mls @ 200 mls/hr 04/12/21 19:03 04/12/21 20:22 Sod 4.5 gm/ Sodium Chloride IV 04/12/21 19:32 200 mls/hr STAT ONE Administration Vancomycin HCl 1 gm/ Sodium 250 mls @ 250 mls/hr 04/12/21 19:03 04/12/21 20:29 Chloride IV 04/12/21 20:02 250 mls/hr STAT ONE Administration Piperacillin Sod/Tazobactam 100 mls @ 200 mls/hr 04/12/21 04:00 04/13/21 00:59 Sod 4.5 gm/ Sodium Chloride IV 04/12/21 04:29 Not Given ONETIME ONE Piperacillin Sod/Tazobactam 100 mls @ 200 mls/hr 04/13/21 04:00 04/13/21 03:33 Sod 4.5 gm/ Sodium Chloride IV 04/13/21 04:29 200 mls/hr ONETIME ONE Administration Iopamidol 100 ml 04/12/21 19:20 04/12/21 20:14 Iopamidol 612 Mg/Ml 100 Ml Bottle IVPUSH 04/12/21 19:21 100 ml ONETIME ONE Administration Piperacillin Sod/Tazobactam Sod Confirm 04/12/21 19:23 04/12/21 19:56 Piperacillin/Tazobactam 4.5 Gm Vial Administered 04/12/21 19:24 Not Given Dose 4.5 gm .ROUTE .[facility] ONE - Radiology Interpretation Free Text/Narrative:: Chest x-ray did not reveal any obvious infiltrate Bilateral pneumonia noted on CT. Small 4x5 cm fluid collection near R psoas muscle. - Re-Assessments/Exams Free Text/Narrative Re-Assessment/Exam: Second IV established. Pt. actively seizing on arrival to ER. She was given valium 5mg IV. She was loaded with keppra 500mg IV. Seizure activity ceased for duration of stay in ER. She was postictal, initially completely unresponsive. She now responds to strong verbal stimuli. She was given a total of 2 liters of normal saline in ER. She was given 975mg tylenol VT. Pt. was started on IV zosyn 4.5 gm IV and vancomycin 1 gm IV. Urine was clear, as was portable chest x-ray. She did have evidence of probable aspiration pneumonia bilaterally. Initial lactate level was 14. 3 hour repeat was down to 2. Departure - Departure Time of Disposition: 22:15 Disposition: Admitted As Inpatient 64 Clinical Impression: Status epilepticus, Sepsis, Aspiration pneumonia - Discharge Information Sepsis Event Note (ED) - Focused Exam Vital Signs: Vital Signs Temp Temp Pulse Resp BP Pulse Ox 04/12/21 20:56 38.0 C 115 H 16 117/66 100 04/12/21 19:45 39.1 C H 133 H 24 H 146/65 H 100 04/12/21 19:05 40.2 C H 04/12/21 18:56 135 H 24 H 133/61 99 - Problem List Review Problem List Initiated/Reviewed/Updated: Yes - My Orders Last 24 Hours: My Active Orders 04/12/21 18:15 Blood Culture x2 Reflex Set [OM.PC] Stat 04/12/21 18:26 CULTURE BLOOD [BC] Stat LEVETIRACETAM, S [REF] Stat PHENYTOIN [REF] Stat 04/12/21 18:30 CULTURE BLOOD [BC] Stat 04/12/21 18:51 Head wo Cont [CT] Stat 04/12/21 19:00 Sodium Chloride 0.9% [Normal Saline] 1,000 ml IV ASDIRECTED 04/12/21 19:02 Sodium Chloride 0.9% [Saline Flush] 10 ml FLUSH ASDIRECTED PRN 04/12/21 19:03 Peripheral IV Insertion Adult [OM.PC] Routine 04/12/21 19:12 Chest Abdomen Pelvis w Cont [CT] Stat 04/12/21 19:33 Soft Tissue Neck w Cont [CT] Stat 04/12/21 20:30 Sodium Chloride 0.9% [Normal Saline] 1,000 ml IV ASDIRECTED - Assessment/Plan Last 24 Hours: My Active Orders 04/12/21 18:15 Blood Culture x2 Reflex Set [OM.PC] Stat 04/12/21 18:26 CULTURE BLOOD [BC] Stat LEVETIRACETAM, S [REF] Stat PHENYTOIN [REF] Stat 04/12/21 18:30 CULTURE BLOOD [BC] Stat 04/12/21 18:51 Head wo Cont [CT] Stat 04/12/21 19:00 Sodium Chloride 0.9% [Normal Saline] 1,000 ml IV ASDIRECTED 04/12/21 19:02 Sodium Chloride 0.9% [Saline Flush] 10 ml FLUSH ASDIRECTED PRN 04/12/21 19:03 Peripheral IV Insertion Adult [OM.PC] Routine 04/12/21 19:12 Chest Abdomen Pelvis w Cont [CT] Stat 04/12/21 19:33 Soft Tissue Neck w Cont [CT] Stat 04/12/21 20:30 Sodium Chloride 0.9% [Normal Saline] 1,000 ml IV ASDIRECTED Plan: Pt. will be admitted acutely. She is a code 1. She was admitted by Dr. Rowell for Dr. Valera.
[2021-04-12] MEDS ORDERED: Acetaminophen 650 MG Supp RECTAL ONE (18:51)
[2021-04-12] MEDS ORDERED: Acetaminophen 325 MG Supp RECTAL ONE (18:53)
[2021-04-12] MEDS ORDERED: Sodium Chloride 0.9% 1,000 ML IV SCH ×3 (19:00→22:30)
[2021-04-12] MEDS ORDERED: Sodium Chloride 0.9% 10 ML Syringe FLUSH PRN (19:02)
[2021-04-12 19:03] LABS: CHLORIDE,CL 100 mmol/L (98-107); SODIUM,NA 137 mmol/L (136-145)
[2021-04-12] MEDS ORDERED: Piperacillin/Tazobactam 4.5 GM in Sodium Chloride 0.9% 100 ML IV ONE (19:03)
[2021-04-12 19:04] LABS: ANION GAP 27.7 mmol/L (5-15)
[2021-04-12] MEDS ORDERED: Iopamidol 612 MG/ML 100 ML Bottle IVPUSH ONE (19:20)
[2021-04-12] MEDS ORDERED: Piperacillin/Tazobactam 4.5 GM Vial ONE (19:23)
[2021-04-12 19:32] LABS: PCO2 ARTERIAL,POC 32 mmHg (35-48)
[2021-04-12 19:42] LABS: CORONAVIRUS COVID-19 NAA NEGATIVE (NEGATIVE)
--- NOTE | 2021-04-12 19:47 | CR ---
[id number] RAD/RAD Chest Portable EXAM: PORTABLE CHEST RADIOGRAPH. 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
[2021-04-12] MEDS ORDERED: Acetaminophen 650 MG Supp RECTAL PRN (22:10)
[2021-04-12] MEDS: Enoxaparin 40 MG/0.4 ML Syringe SUBCUT SCH (22:42)
--- NOTE | 2021-04-13 01:37 | HP ---
CHIEF COMPLAINT: Seizure with sepsis. HISTORY OF PRESENT ILLNESS: The patient is a 30-year-old resident of a halfway, who this afternoon at 4:30 p.m. had a vomiting episode while she was eating, possibly aspirated. Then, at approximately 17:30, she had a seizure that would not stop despite using her vagal nerve stimulator (VNS), so ambulance was called. She was brought to [facility] and her seizure lasted for about 30 minutes. She was seen by Ramon Aaron in the emergency room and the patient had been given 7.5 mg of Valium on transport and her seizure did finally stop, then it recurred in the emergency room. She had been also given IV fluids, Keppra 500 mg IV and then 1000 mg. she had also been given Zosyn 4.5 g as well as vancomycin 1 g. The patient was noted to be febrile. She was given rectal Tylenol of 650. On physical exam, the patient was postictal, lethargic, not responding. She was noted to have crackles on her lungs. Otherwise unremarkable. Her initial white blood cell count was 27.3, hemoglobin 14.7, platelet count was 286 with 62 neutrophils, 2 bands, 27 lymphocytes. INR 1.0. Sodium 137, potassium 3.7, creatinine 1.0, GFR greater than 60, glucose was 301. LFTs were normal. CRP was 11.0. TSH 2.78. Her lactic acid initially was 14.2, procalcitonin was 0.33. Urinalysis came back with protein in it, glucose in it, but no white blood cells, no red blood cells, negative leukocyte esterase, negative nitrites. Influenza A was negative. Influenza B negative. COVID negative. Group A strep not detected. Blood gases were obtained, which showed pH 7.36, pCO2 32, pO2 141, bicarb 17.7, saturations are 99. Lactic acid was repeated at 2100 and it came down to 2.0. The patient received 2 L of IV fluids. Chest x-ray, no obvious infiltrate. CT of chest showed bilateral pneumonia and a 4 x 5 cm fluid collection in the right psoas muscle, unclear if abscess versus hematoma. Head CT showed CARD DECORATOR shunt present. Abdominal CT showed CARD DECORATOR shunt present. Some ascites noted. Otherwise, no other abnormalities. CT neck was unremarkable. MEDICATIONS: Her current medications are: Dilantin 100 mg extended release 2 capsules twice a day; potassium chloride 10 mEq 1 pill daily; sertraline 50 mg 1 pill daily; stool softener with laxative; Senna Plus 1 pill twice a day; cranberry concentrate 140 mg 1 pill every morning; Sentry vitamin tablets 1 pill daily; Abilify 15 mg tablet, she takes half in the morning; Keppra 500 mg 1 tablet every morning and 2 tablets every evening; vitamin D 2000 international units 1 pill daily; nitrofurantoin 50 mg 2 capsules once a day; oyster shell calcium 500 mg 1 pill twice a day; and MiraLAX 17 g on Mondays, Wednesdays, and Fridays. ALLERGIES: None known. PAST MEDICAL HISTORY: The patient has intellectual delay. She has a seizure disorder. She has had hydrocephalus, Chiari 2 type large [id number] spots, multiple optic chiasma gliomas, spinal tumors, atypical nevi, legally blind, optic gliomas causing advanced optic atrophy, severe rotary thoracolumbar scoliosis, kyphosis, lordosis, spasticity, quadriparesis, osteoporosis, hyponatremia, neurofibromatosis type 1, vitamin D deficiency, hearing loss, recurrent UTIs, mood disorder due to medical condition, hyperlipidemia, chronic back pain. 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 She is under guardianship. Lives in a halfway. Does not smoke. She uses wheelchair, can stand, uses AFO, rocker knife. She can whirlpool bath, seat belt pivot, has glasses. PAST SURGICAL HISTORY: She has had on 08/21/2017 stimulator of vagus nerve placed; on 11/19/2014 CARD DECORATOR [facility] shunt placed; on 04/02/2007, she has had teeth extraction; she has had surgical tympanostomy tubes. REVIEW OF SYSTEMS: The patient is not able to contribute anything. She has otherwise been her normal self up until today with aspirating at her baseline. PHYSICAL EXAMINATION: Vital Signs: Her initial vital signs showed her temperature 40.2 and her temperature did improve to 37.5. Initial pulse was 183, did come down to 127. Blood pressure initially was 127/71, did go down to 93/62. Respiratory rate initially 24, did improve to 16. Sats initially 88 on room air, but improved to 100% with 2 L of nasal oxygen. Skin: [place], warm, and dry. HEENT: Her pupils are equal and reactive to light. Her tympanic membranes are normal bilaterally. Pharynx is dry. Difficult to see posterior pharynx. She was noted to be blind. Neck: No anterior cervical lymphadenopathy. Heart: Regular rate and rhythm. Lungs: Some inspiratory crackles on bases. Abdomen: Soft. Bowel sounds are present. : The patient has a Mejia catheter in, placed in the ER, which shows clear urine. Extremities: Lower extremities are thin, somewhat atrophic, has limited movement of them. Neurologic: She is lethargic, does respond to pain, but does not speak, does not open eyes spontaneously. IMPRESSION: 1. Sepsis, suspect aspiration pneumonia. 2. Seizure disorder with prolonged seizure, status epilepticus. 3. Bilateral pneumonias on CT. 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 5. Neurofibromatosis. 6. Mental intellectual delay. 7. Scoliosis. 8. Osteoporosis. 9. Vitamin D deficiency. 10.Blindness. PLAN: The patient will be admitted to acute care under Dr. Dorita Valera's service. She is code level 1. She will continue on Zosyn as well as vancomycin. She will receive IV hydration. We will continue her seizure medicines and if she is unable to take oral, we will need to switch to IV route. We will hold several of her vitamins until she is more mentally alert. To note, the patient was quite sick and initial attempts by ER to transfer the patient to hospitals in [place] was not able to be done due to no bed availability and caregiver was fine for her to stay here. She will receive Lovenox for DVT prophylaxis. Dr. Valera to assume care in the morning and if she is gone, then I would continue to cover her care. To note, the patient's status is somewhat guarded due to her sepsis and she possibly could from current problems. We will need to carefully watch her blood pressure. She may require IV pressors if her blood pressure would continue to drop. It is improved and her lactic acid did improve, but we will need to recheck her procalcitonin levels. We will leave current Mejia catheter in right now for I's and O's due to severity of illness. GM04/12/2021 22:44:20 MODL: 04/13/2021 01:32:31 /[id number] MTDD
[2021-04-13] MEDS: Ondansetron 4 MG/2 ML SDV IV PRN ×5 (01:49→19:29)
[2021-04-13] MEDS ORDERED: Piperacillin/Tazobactam 4.5 GM in Sodium Chloride 0.9% 100 ML IV ONE (04:00)
[2021-04-13 07:21] LABS: ANION GAP 17.2 mmol/L (5-15); CHLORIDE,CL 109 mmol/L (98-107); SODIUM,NA 142 mmol/L (136-145)
[2021-04-13] MEDS: levETIRAcetam 500 MG Tab PO SCH ×2 (07:59→21:07)
[2021-04-13] MEDS: Phenytoin 100 MG Cap.ER PO SCH ×2 (07:59→21:06)
[2021-04-13] MEDS: ARIPiprazole 5 MG Tab PO SCH (08:00)
[2021-04-13] MEDS: Potassium Chloride 10 MEQ Tab.ER PO SCH (08:00)
[2021-04-13] MEDS: Acetaminophen 325 MG Tab PO PRN ×3 (08:08→20:45)
--- NOTE | 2021-04-13 08:48 | CT ---
[id number] CT/CT Head WO IV EXAM: CT Head WO IV CLINICAL DATA: SEIZURE. FEVER COMPARISON: CORRELATION IS MADE WITH SEPTEMBER 17, 2018 FINDINGS: Hydrocephalus is decreased since the last exam There is a ventriculostomy catheter with the tip in the left frontal horn. The ventriculostomy catheter traverses the body of the right lateral ventricle and crosses the midline. 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 Report provided at time of exam. There is widening of the subarachnoid space or subdural fluid collections over the convexities bilaterally measuring 5 mm in width. This is not acute. The cerebellar tonsils project 1 cm below the posterior margin of the foramen magnum. IMPRESSION: Markedly abnormal exam Neurosurgical opinion now needed Seven Clement MD 04/13/21 6225 Thank you for allowing us to participate in the care of your patient.
--- NOTE | 2021-04-13 09:18 | CT ---
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 Cerebellar tonsillar ectopia is identified. Submucosal edema is seen in the hypopharynx There is effacement of the normal fat within the vallecula. The palatine tonsils are prominent bilaterally. There is retropharyngeal edema. There is no discrete abscess The thyroid is prominent bilaterally This can be addressed in the future with ultrasound IMPRESSION: NO DISCRETE TONSILLAR ABSCESS ACUTE INFLAMMATORY CHANGES INVOLVING THE OROPHARYNX AND HYPOPHARYNX Seven Clement MD 04/13/21 2007 Thank you for allowing us to participate in the care of your patient.
--- NOTE | 2021-04-13 09:19 | PN ---
Progress Note for HERRERA HENNESSY Date: 04/13/2021 Room #: VM.203 SUBJECTIVE: This is the patient's second hospital day. She is admitted with seizure after aspiration with sepsis. This morning, she is much more alert, feeling a little bit weaker. She has been drinking fluid. She has had some nausea. The patient denies any pain, but she has intellectual delay and not as well to express all her issues. OBJECTIVE: Vital Signs: Her temperature max was 38.4 during the night, now she is 37.1, her pulse is 106, blood pressure has been 93/53, respiratory rate 18, saturations are 97 with 2 L of oxygen. General: Objectively, she is alert, talkative, somewhat weak, was moving around. Heart: Regular rate. Lungs: Do have some inspiratory crackles on bases. Abdomen: Soft. Urine is clear yellow. LABORATORY DATA: Her white blood cell count is improved greatly to 10.6, hemoglobin 12.2 with 72 segs, 15 lymphocytes, 11 monos. Her sodium is 142, potassium has dropped to 3.2, creatinine is improved to 0.5. GFR is greater than 60. Glucose is 109. Calcium is 7.2, but 8.2 corrected, slightly low. AST is elevated at 71, ALT elevated at 77. CRP is 12.2, which is the same. Albumin is 2.8. Procalcitonin has increased from 0.33 on admission to 15.56. IMPRESSION: 1. Sepsis. 2. Aspiration pneumonia. 3. Seizure provoked by sepsis. 4. Epilepsy. 5. Intellectual delay. 6. Psoas mass. 7. Neurofibromatosis. PLAN: The patient will continue on both Zosyn as well as vancomycin. Tomorrow, we will repeat a chest x-ray as well as her lab work. We will switch her IVs from saline with potassium due to her mild hypokalemia. She will resume her oral antiseizure medicines. We will hold several of her vitamins for today. If possible, may need to consider getting ultrasound of her right upper quadrant. We will continue Lovenox. The patient will be resumed care with Dr. Valera tomorrow, as she was absent today. GM04/13/2021 08:22:51 MODL: 04/13/2021 09:11:53 /[id number]
[2021-04-13] MEDS: NS + KCl 20mEq/L 1,000 ML IV SCH (10:44)
[2021-04-13] MEDS: Enoxaparin 40 MG/0.4 ML Syringe SUBCUT SCH ×2 (11:08→21:07)
[2021-04-13] MEDS ORDERED: Piperacillin/Tazobactam 3.375 GM in Sodium Chloride 0.9% 100 ML IV SCH (12:00)
--- NOTE | 2021-04-13 12:47 | CT ---
[id number] CT/CT Chest Abdomen Pelvis W IV Exam: CT Chest Abdomen Pelvis W IV Clinical Data: FEVER ELEVATED WHITE BLOOD CELL COUNT LACTIC ACIDOSIS COMPARISON: NO PREVIOUS SIMILAR EXAM IS AVAILABLE FINDINGS: The thyroid is prominent bilaterally. Small bibasilar infiltrates are seen likely atelectatic. There is no mediastinal mass or adenopathy. There are no large central pulmonary emboli The liver and spleen show no focal abnormalities. There is prominence of the ureters bilaterally This may represent reflux uropathy. There is no free fluid or free air. The Gonzalez catheter and ASSISTANT CLINICAL DIRECTOR shunt are seen The gallbladder is not distended The visceral vessels demonstrate normal enhancement There is an asymmetric appearance of the psoas muscle This may be related to the scoliosis. This can be compared with previous studies and may benefit from follow-up imaging There is a severe scoliosis There is abnormal widening of the spinal canal This is chronic in nature The pelvis shows no mass, adenopathy, or abscess IMPRESSION: BIBASILAR INFILTRATES PROBABLE CHRONIC REFLUX UROPATHY VENTRICULOPERITONEAL SHUNT AND GONZALEZ CATHETER IN PLACE Seven Clement MD 04/13/21 2325 Thank you for allowing us to participate in the care of your patient.
--- NOTE | 2021-04-13 17:33 | PCM.SN.2 ---
- Free Text/Narrative Note: Head CT report from 04/12/21 that was overread by Carol radiologist today, came back saying there is a 1 cm midline shift from left to right with PATTERN CLERK shunt. Images were not pushed through to P[facility] [place] yet, so unable to review with neurosurgeon at this time. Pt is mentally alert and at baseline with no seizures today. I did inform oncall provider about this new finding, Dr Lamberto Raza, as well as her PCP, Dr Marcelina Valera. She will need to review tomorrow when images are available. Time Documentation
[2021-04-13] MEDS: Sertraline 50 MG Tab PO SCH (21:06)
[2021-04-13] MEDS: Piperacillin/Tazobactam 3.375 GM in Sodium Chloride 0.9% 100 ML IV SCH (21:07)
[2021-04-14] MEDS: Ondansetron 4 MG/2 ML SDV IV PRN ×2 (00:40→07:17)
[2021-04-14] MEDS: Piperacillin/Tazobactam 3.375 GM in Sodium Chloride 0.9% 100 ML IV SCH (04:59)
[2021-04-14] MEDS: NS + KCl 20mEq/L 1,000 ML IV SCH ×2 (04:59→17:50)
[2021-04-14 06:58] LABS: ANION GAP 15.4 mmol/L (5-15); CHLORIDE,CL 110 mmol/L (98-107); SODIUM,NA 143 mmol/L (136-145)
[2021-04-14] MEDS: Potassium Chloride 10 MEQ Tab.ER PO SCH (07:38)
[2021-04-14] MEDS: ARIPiprazole 5 MG Tab PO SCH (07:38)
[2021-04-14] MEDS: Acetaminophen 325 MG Tab PO PRN ×2 (07:39→19:52)
[2021-04-14] MEDS: Phenytoin 100 MG Cap.ER PO SCH ×2 (07:39→19:48)
[2021-04-14] MEDS: levETIRAcetam 500 MG Tab PO SCH ×2 (07:39→19:47)
--- NOTE | 2021-04-14 08:47 | CR ---
[id number] RAD/RAD Chest PA or AP 1V EXAM: RAD Chest PA or AP 1V INDICATION: PNEUMONIA FOLLOW-UP. COMPARISON: April 12, 2021. DISCUSSION: Left chest wall stimulator device. Cardiomediastinal silhouette is normal in size and contour. No infiltrate, effusion, pneumothorax, or edema. IMPRESSION: No acute cardiopulmonary abnormality. No evidence of active pneumonia. Luis Fernando Aguirre DO 04/14/21 0845 Thank you for allowing us to participate in the care of your patient.
[2021-04-14] MEDS: Amoxicillin/Clavulanate K 875-125 MG Tab PO SCH ×2 (09:07→19:48)
--- NOTE | 2021-04-14 09:56 | PCM.PN ---
- General Info Date of Service: 04/14/21 Subjective Update: 30 yo female hospital day #3 admitted with sepsis secondary to pneumonia after initially presenting to the ER for evaluation of a seizure. Patient states she is feeling better today. She does note that she is coughing but that coke seems to help with this. Nursing staff have noticed that she is having more difficulty with swallowing. She is eating ok and has not had any nausea or vomiting. Had a good BM this morning. No fever overnight. No chest pain or shortness of breath. No headache. - Review of Systems General: Reports: No Symptoms HEENT: Reports: No Symptoms Pulmonary: Reports: Cough Cardiovascular: Reports: No Symptoms Gastrointestinal: Reports: No Symptoms Genitourinary: Reports: No Symptoms Musculoskeletal: Reports: No Symptoms Skin: Reports: No Symptoms Neurological: Reports: No Symptoms - Patient Data Vitals - Most Recent: Last Vital Signs Temp 36.8 C 04/14/21 05:58 Pulse 94 04/14/21 05:58 Resp 19 04/14/21 05:58 BP 106/73 04/14/21 05:58 Pulse Ox 94 L 04/14/21 05:58 Weight - Most Recent: 63.6 kg I&O - Last 24 Hours: Intake & Output 04/13/21 04/14/21 04/14/21 22:59 06:59 14:59 Intake Total 1362 1354 120 Output Total 600 725 Balance 762 629 120 Lab Results Last 24 Hours: Laboratory Results - last 24 hr 04/12/21 04/14/21 04/14/21 Range/Units 18:26 06:20 06:20 WBC 8.3 (4.0-10.0) x10^3/uL RBC 3.67 L (4.00-5.50) x10^6/uL Hgb 11.6 L (12.0-16.0) g/dL Hct 32.4 L (33.0-47.0) % MCV 88.3 (78.0-93.0) fL MCH 31.6 (26.0-32.0) pg MCHC 35.8 (32.0-36.0) g/dL RDW Coeff of Prerna 11.3 (10.0-15.0) % Plt Count 151 (130-400) x10^3/uL Immature Gran % (Auto) 0.20 (0.00-0.43) % Neut % (Auto) 64.1 (50.0-80.0) % Lymph % (Auto) 23.7 L (25.0-50.0) % [place] % (Auto) 11.5 H (2.0-11.0) % Eos % (Auto) 0.1 (0.0-4.0) % Baso % (Auto) 0.4 (0.2-1.2) % Neut # (Auto) 5.3 (1.8-7.7) x10^3/uL Lymph # (Auto) 2.0 (1.0-4.8) x10^3/uL [place] # (Auto) 1.0 H (0.0-0.8) x10^3/uL Eos # (Auto) 0.0 (0.0-0.5) x10^3/uL Baso # (Auto) 0.0 (0.0-0.2) x10^3/uL Immature Gran # (Auto) 0.02 (0.00-0.07) x10^3/uL Sodium 143 (136-145) mmol/L Potassium 3.4 L (3.5-5.1) mmol/L Chloride 110 H (98-107) mmol/L Carbon Dioxide 21 (21-32) mmol/L Anion Gap 15.4 H (5-15) mmol/L BUN 8 (7-18) mg/dL Creatinine 0.5 L (0.55-1.02) mg/dL Est Cr Clr Drug Dosing 133.62 mL/min Estimated GFR (MDRD) > 60 Glucose 98 (70-99) mg/dL Lactic Acid (0.4-2.0) mmol/L Calcium 7.0 L (8.5-10.1) mg/dL Corrected Calcium 7.9 L (8.5-10.1) mg/dL Magnesium 2.0 (1.8-2.4) mg/dL Total Bilirubin 0.4 (0.2-1.0) mg/dL AST 275 H (15-37) U/L ALT 321 H (14-59) U/L Alkaline Phosphatase 69 (46-116) U/L C-Reactive Protein 6.1 H (<=0.9) mg/dL Total Protein 5.7 L (6.4-8.2) g/dL Albumin 2.9 L (3.4-5.0) g/dL Globulin 2.8 Albumin/Globulin Ratio 1.04 Procalcitonin (0.1-0.50) ng/mL Phenytoin 6.3 L (10.0-20.0) ug/mL 04/14/21 04/14/21 Range/Units 06:20 06:20 WBC (4.0-10.0) x10^3/uL RBC (4.00-5.50) x10^6/uL Hgb (12.0-16.0) g/dL Hct (33.0-47.0) % MCV (78.0-93.0) fL MCH (26.0-32.0) pg MCHC (32.0-36.0) g/dL RDW Coeff of Prerna (10.0-15.0) % Plt Count (130-400) x10^3/uL Immature Gran % (Auto) (0.00-0.43) % Neut % (Auto) (50.0-80.0) % Lymph % (Auto) (25.0-50.0) % [place] % (Auto) (2.0-11.0) % Eos % (Auto) (0.0-4.0) % Baso % (Auto) (0.2-1.2) % Neut # (Auto) (1.8-7.7) x10^3/uL Lymph # (Auto) (1.0-4.8) x10^3/uL [place] # (Auto) (0.0-0.8) x10^3/uL Eos # (Auto) (0.0-0.5) x10^3/uL Baso # (Auto) (0.0-0.2) x10^3/uL Immature Gran # (Auto) (0.00-0.07) x10^3/uL Sodium (136-145) mmol/L Potassium (3.5-5.1) mmol/L Chloride (98-107) mmol/L Carbon Dioxide (21-32) mmol/L Anion Gap (5-15) mmol/L BUN (7-18) mg/dL Creatinine (0.55-1.02) mg/dL Est Cr Clr Drug Dosing mL/min Estimated GFR (MDRD) Glucose (70-99) mg/dL Lactic Acid 0.7 (0.4-2.0) mmol/L Calcium (8.5-10.1) mg/dL Corrected Calcium (8.5-10.1) mg/dL Magnesium (1.8-2.4) mg/dL Total Bilirubin (0.2-1.0) mg/dL AST (15-37) U/L ALT (14-59) U/L Alkaline Phosphatase (46-116) U/L C-Reactive Protein (<=0.9) mg/dL Total Protein (6.4-8.2) g/dL Albumin (3.4-5.0) g/dL Globulin Albumin/Globulin Ratio Procalcitonin 9.36 H (0.1-0.50) ng/mL Phenytoin (10.0-20.0) ug/mL [place] Results Last 24 Hours: Microbiology 04/12/21 18:30 Aerobic Blood Culture - Preliminary Blood - Venous - Lab Draw NO GROWTH AFTER 1 DAY Anaerobic Blood Culture - Preliminary NO GROWTH AFTER 1 DAY 04/12/21 18:26 Aerobic Blood Culture - Preliminary Blood - Venous NO GROWTH AFTER 1 DAY Anaerobic Blood Culture - Preliminary NO GROWTH AFTER 1 DAY Med Orders - Current: Current Medications Acetaminophen (Acetaminophen 650 Mg Supp) 650 mg RECTAL Q4H PRN PRN Reason: Mild pain/fever Last Admin: 04/13/21 02:14 Dose: 650 mg Documented by: Acetaminophen (Acetaminophen 325 Mg Tab) 650 mg PO Q4H PRN PRN Reason: FEVER OVER 89 F Last Admin: 04/14/21 07:39 Dose: 650 mg Documented by: Amoxicillin/Clavulanate Potassium (Amoxicillin/Clavulanate K 875-125 Mg Tab) 1 tab PO Q12HR [facility] Last Admin: 04/14/21 09:07 Dose: 1 tab Documented by: Aripiprazole (Aripiprazole 5 Mg Tab) 7.5 mg PO DAILY [facility] Last Admin: 04/14/21 07:38 Dose: 7.5 mg Documented by: Enoxaparin Sodium (Enoxaparin 40 Mg/0.4 Ml Syringe) 40 mg SUBCUT BEDTIME [facility] Last Admin: 04/13/21 21:07 Dose: 40 mg Documented by: Potassium Chloride/Sodium Chloride (Normal Saline With 20 Meq Kcl) 1,000 mls @ 100 mls/hr IV ASDIRECTED [facility] Last Admin: 04/14/21 04:59 Dose: 100 mls/hr Documented by: Levetiracetam (Levetiracetam 500 Mg Tab) 1,000 mg PO BEDTIME [facility] Last Admin: 04/13/21 21:07 Dose: 1,000 mg Documented by: Levetiracetam (Levetiracetam 500 Mg Tab) 500 mg PO DAILY [facility] Last Admin: 04/14/21 07:39 Dose: 500 mg Documented by: Ondansetron HCl (Ondansetron 4 Mg/2 Ml Sdv) 4 mg IV Q4H PRN PRN Reason: Nausea/Vomiting Last Admin: 04/14/21 07:17 Dose: 4 mg Documented by: Phenytoin Sodium (Phenytoin 100 Mg Cap.Er) 200 mg PO BID [facility] Last Admin: 04/14/21 07:39 Dose: 200 mg Documented by: Potassium Chloride (Potassium Chloride 10 Meq Tab.Er) 10 meq PO DAILY [facility] Last Admin: 04/14/21 07:38 Dose: 10 meq Documented by: Sertraline HCl (Sertraline 50 Mg Tab) 50 mg PO BEDTIME [facility] Last Admin: 04/13/21 21:06 Dose: 50 mg Documented by: Sodium Chloride (Sodium Chloride 0.9% 10 Ml Syringe) 10 ml FLUSH ASDIRECTED PRN PRN Reason: Keep Vein Open Last Admin: 04/13/21 11:41 Dose: 10 ml Documented by: Discontinued Medications Acetaminophen (Acetaminophen 650 Mg Supp) 650 mg RECTAL NOW ONE Stop: 04/12/21 18:52 Last Admin: 04/12/21 19:05 Dose: 650 mg Documented by: Acetaminophen (Acetaminophen 325 Mg Supp) 325 mg RECTAL NOW ONE Stop: 04/12/21 18:54 Last Admin: 04/12/21 19:05 Dose: 325 mg Documented by: Diazepam (Diazepam 10 Mg/2 Ml Syringe) 5 mg IVPUSH STAT ONE Stop: 04/12/21 18:10 Last Admin: 04/12/21 18:15 Dose: 5 mg Documented by: Enoxaparin Sodium (Enoxaparin 40 Mg/0.4 Ml Syringe) 40 mg SUBCUT DAILY [facility] Last Admin: 04/13/21 11:08 Dose: Not Given Documented by: Levetiracetam 500 mg/ Premix 100 mls @ 400 mls/hr IV ONETIME ONE Stop: 04/12/21 18:24 Last Admin: 04/12/21 18:24 Dose: 400 mls/hr Documented by: Levetiracetam 1,000 mg/ Sodium (Chloride) 110 mls @ 400 mls/hr IV ONETIME ONE Stop: 04/12/21 18:24 Last Admin: 04/13/21 00:58 Dose: Not Given Documented by: Sodium Chloride (Normal Saline) 1,000 mls @ 1,000 mls/hr IV ASDIRECTED [facility] Last Admin: 04/12/21 19:15 Dose: 1,000 mls/hr Documented by: Piperacillin Sod/Tazobactam (Sod 4.5 gm/ Sodium Chloride) 100 mls @ 200 mls/hr IV STAT ONE Stop: 04/12/21 19:32 Last Admin: 04/12/21 20:22 Dose: 200 mls/hr Documented by: Vancomycin HCl 1 gm/ Sodium (Chloride) 250 mls @ 250 mls/hr IV STAT ONE Stop: 04/12/21 20:02 Last Admin: 04/12/21 20:29 Dose: 250 mls/hr Documented by: Sodium Chloride (Normal Saline) 1,000 mls @ 1,000 mls/hr IV ASDIRECTED [facility] Last Admin: 04/12/21 20:28 Dose: 1,000 mls/hr Documented by: Vancomycin HCl 1 gm/ Sodium (Chloride) 250 mls @ 250 mls/hr IV Q12H [facility] Last Admin: 04/13/21 19:29 Dose: 250 mls/hr Documented by: Piperacillin Sod/Tazobactam (Sod 4.5 gm/ Sodium Chloride) 100 mls @ 200 mls/hr IV ONETIME ONE Stop: 04/12/21 04:29 Last Admin: 04/13/21 00:59 Dose: Not Given Documented by: Sodium Chloride (Normal Saline) 1,000 mls @ 100 mls/hr IV ASDIRECTED [facility] Last Admin: 04/12/21 22:42 Dose: 100 mls/hr Documented by: Piperacillin Sod/Tazobactam (Sod 3.375 gm/ Sodium Chloride) 100 mls @ 25 mls/hr IV Q8H [facility] Stop: 04/13/21 16:00 Last Admin: 04/13/21 11:54 Dose: 25 mls/hr Documented by: Piperacillin Sod/Tazobactam (Sod 4.5 gm/ Sodium Chloride) 100 mls @ 200 mls/hr IV ONETIME ONE Stop: 04/13/21 04:29 Last Admin: 04/13/21 03:33 Dose: 200 mls/hr Documented by: Piperacillin Sod/Tazobactam (Sod 3.375 gm/ Sodium Chloride) 100 mls @ 35 mls/hr IV Q8H [facility] Last Admin: 04/14/21 04:59 Dose: 35 mls/hr Documented by: Iopamidol (Iopamidol 612 Mg/Ml 100 Ml Bottle) 100 ml IVPUSH ONETIME ONE Stop: 04/12/21 19:21 Last Admin: 04/12/21 20:14 Dose: 100 ml Documented by: Piperacillin Sod/Tazobactam Sod (Piperacillin/Tazobactam 4.5 Gm Vial) Confirm Administered Dose 4.5 gm .ROUTE .STK-MED ONE Stop: 04/12/21 19:24 Last Admin: 04/12/21 19:56 Dose: Not Given Documented by: Vancomycin HCl (Pharmacy To Dose - Vancomycin) 1 dose .XX ASDIRECTED CARLOS - Exam General: Alert, Oriented, Cooperative, No Acute Distress HEENT: Mucous Membr. Moist/[place] Neck: Supple, Trachea Midline, No Thyromegaly. No: Lymphadenopathy Lungs: Normal Respiratory Effort, Crackles (at the bases bilaterally (L>R)) Cardiovascular: Regular Rate, Regular Rhythm, No Murmurs GI/Abdominal Exam: Normal Bowel Sounds, Soft, Non-Tender, No Organomegaly, No Distention, No Mass Extremities: Normal Inspection, Non-Tender, No Pedal Edema Peripheral Pulses: 2+: Radial (L), Radial (R) Skin: Warm, Dry, Intact Neurological: No New Focal Deficit - Patient Data Lab Results Last 24 hrs: Laboratory Results - last 24 hr 04/12/21 04/14/21 04/14/21 Range/Units 18:26 06:20 06:20 WBC 8.3 (4.0-10.0) x10^3/uL RBC 3.67 L (4.00-5.50) x10^6/uL Hgb 11.6 L (12.0-16.0) g/dL Hct 32.4 L (33.0-47.0) % MCV 88.3 (78.0-93.0) fL MCH 31.6 (26.0-32.0) pg MCHC 35.8 (32.0-36.0) g/dL RDW Coeff of Prerna 11.3 (10.0-15.0) % Plt Count 151 (130-400) x10^3/uL Immature Gran % (Auto) 0.20 (0.00-0.43) % Neut % (Auto) 64.1 (50.0-80.0) % Lymph % (Auto) 23.7 L (25.0-50.0) % [place] % (Auto) 11.5 H (2.0-11.0) % Eos % (Auto) 0.1 (0.0-4.0) % Baso % (Auto) 0.4 (0.2-1.2) % Neut # (Auto) 5.3 (1.8-7.7) x10^3/uL Lymph # (Auto) 2.0 (1.0-4.8) x10^3/uL [place] # (Auto) 1.0 H (0.0-0.8) x10^3/uL Eos # (Auto) 0.0 (0.0-0.5) x10^3/uL Baso # (Auto) 0.0 (0.0-0.2) x10^3/uL Immature Gran # (Auto) 0.02 (0.00-0.07) x10^3/uL Sodium 143 (136-145) mmol/L Potassium 3.4 L (3.5-5.1) mmol/L Chloride 110 H (98-107) mmol/L Carbon Dioxide 21 (21-32) mmol/L Anion Gap 15.4 H (5-15) mmol/L BUN 8 (7-18) mg/dL Creatinine 0.5 L (0.55-1.02) mg/dL Est Cr Clr Drug Dosing 133.62 mL/min Estimated GFR (MDRD) > 60 Glucose 98 (70-99) mg/dL Lactic Acid (0.4-2.0) mmol/L Calcium 7.0 L (8.5-10.1) mg/dL Corrected Calcium 7.9 L (8.5-10.1) mg/dL Magnesium 2.0 (1.8-2.4) mg/dL Total Bilirubin 0.4 (0.2-1.0) mg/dL AST 275 H (15-37) U/L ALT 321 H (14-59) U/L Alkaline Phosphatase 69 (46-116) U/L C-Reactive Protein 6.1 H (<=0.9) mg/dL Total Protein 5.7 L (6.4-8.2) g/dL Albumin 2.9 L (3.4-5.0) g/dL Globulin 2.8 Albumin/Globulin Ratio 1.04 Procalcitonin (0.1-0.50) ng/mL Phenytoin 6.3 L (10.0-20.0) ug/mL 04/14/21 04/14/21 Range/Units 06:20 06:20 WBC (4.0-10.0) x10^3/uL RBC (4.00-5.50) x10^6/uL Hgb (12.0-16.0) g/dL Hct (33.0-47.0) % MCV (78.0-93.0) fL MCH (26.0-32.0) pg MCHC (32.0-36.0) g/dL RDW Coeff of Prerna (10.0-15.0) % Plt Count (130-400) x10^3/uL Immature Gran % (Auto) (0.00-0.43) % Neut % (Auto) (50.0-80.0) % Lymph % (Auto) (25.0-50.0) % [place] % (Auto) (2.0-11.0) % Eos % (Auto) (0.0-4.0) % Baso % (Auto) (0.2-1.2) % Neut # (Auto) (1.8-7.7) x10^3/uL Lymph # (Auto) (1.0-4.8) x10^3/uL [place] # (Auto) (0.0-0.8) x10^3/uL Eos # (Auto) (0.0-0.5) x10^3/uL Baso # (Auto) (0.0-0.2) x10^3/uL Immature Gran # (Auto) (0.00-0.07) x10^3/uL Sodium (136-145) mmol/L Potassium (3.5-5.1) mmol/L Chloride (98-107) mmol/L Carbon Dioxide (21-32) mmol/L Anion Gap (5-15) mmol/L BUN (7-18) mg/dL Creatinine (0.55-1.02) mg/dL Est Cr Clr Drug Dosing mL/min Estimated GFR (MDRD) Glucose (70-99) mg/dL Lactic Acid 0.7 (0.4-2.0) mmol/L Calcium (8.5-10.1) mg/dL Corrected Calcium (8.5-10.1) mg/dL Magnesium (1.8-2.4) mg/dL Total Bilirubin (0.2-1.0) mg/dL AST (15-37) U/L ALT (14-59) U/L Alkaline Phosphatase (46-116) U/L C-Reactive Protein (<=0.9) mg/dL Total Protein (6.4-8.2) g/dL Albumin (3.4-5.0) g/dL Globulin Albumin/Globulin Ratio Procalcitonin 9.36 H (0.1-0.50) ng/mL Phenytoin (10.0-20.0) ug/mL Result Diagrams: 04/14/21 06:20 04/14/21 06:20 [place] Results Last 24 hrs: Microbiology 04/12/21 18:30 Aerobic Blood Culture - Preliminary Blood - Venous - Lab Draw NO GROWTH AFTER 1 DAY Anaerobic Blood Culture - Preliminary NO GROWTH AFTER 1 DAY 04/12/21 18:26 Aerobic Blood Culture - Preliminary Blood - Venous NO GROWTH AFTER 1 DAY Anaerobic Blood Culture - Preliminary NO GROWTH AFTER 1 DAY Sepsis Event Note - Evaluation Sepsis Screening Result: No Definite Risk - Focused Exam Vital Signs: Vital Signs Temp Pulse Resp BP Pulse Ox 04/14/21 05:58 36.8 C 94 19 106/73 94 L 04/14/21 03:30 36.9 C 92 19 95/60 99 04/13/21 22:40 36.7 C 102 H 21 H 96/53 L 93 L - Problem List & Annotations (1) Sepsis SNOMED Code(s): 01816611 Code(s): A41.9 - SEPSIS, UNSPECIFIED ORGANISM Status: Acute Current Vis it: Yes Qualifiers: Sepsis type: sepsis due to unspecified organism Sepsis acute organ dysfunction status: without acute organ dysfunction Qualified Code(s): A41.9 - Sepsis, unspecified organism (2) Aspiration pneumonia SNOMED Code(s): 782270962 Code(s): J69.0 - PNEUMONITIS DUE TO INHALATION OF FOOD AND VOMIT Status: Acute Current Visit: Yes Qualifiers: Aspiration pneumonia type: unspecified Laterality: bilateral Lung location: lower lobe of lung Qualified Code(s): J69.0 - Pneumonitis due to inhalation of food and vomit (3) Seizure disorder SNOMED Code(s): 580373766 Code(s): G40.909 - EPILEPSY, UNSP, NOT INTRACTABLE, WITHOUT STATUS EPILEPTICUS Status: Chronic Priority: Low Current Visit: No Onset Date: ~12/09/16 (4) Ventriculo-peritoneal shunt status SNOMED Code(s): 914684377, 11377605, 442912150 Code(s): Z98.2 - PRESENCE OF CEREBROSPINAL FLUID DRAINAGE DEVICE Status: Chronic Current Visit: No (5) Elevated liver enzymes SNOMED Code(s): 470303888 Code(s): R74.8 - ABNORMAL LEVELS OF OTHER SERUM ENZYMES Status: Acute Current Visit: Yes (6) Neurofibromatosis, type 1 SNOMED Code(s): 63347812 Code(s): Q85.01 - NEUROFIBROMATOSIS, TYPE 1 Status: Chronic Current Visit: No (7) Mild intellectual disability Status: Chronic Current Visit: Yes (8) Spastic diplegia SNOMED Code(s): 508556361 Code(s): G80.1 - SPASTIC DIPLEGIC CEREBRAL PALSY Status: Chronic Current Visit: Yes (9) Constipation SNOMED Code(s): 30413780 Code(s): K59.00 - CONSTIPATION, UNSPECIFIED Status: Chronic Current Visit: Yes Qualifiers: Constipation type: unspecified constipation type Qualified Code(s): K59.00 - Constipation, unspecified (10) Depression SNOMED Code(s): 33206077 Code(s): F32.9 - MAJOR DEPRESSIVE DISORDER, SINGLE EPISODE, UNSPECIFIED Status: Chronic Current Visit: No Qualifiers: Depression Type: unspecified Qualified Code(s): F32.9 - Major depressive disorder, single episode, unspecified (11) Scoliosis SNOMED Code(s): 335529734 Code(s): M41.9 - SCOLIOSIS, UNSPECIFIED Status: Chronic Current Visit: No Qualifiers: Scoliosis type: unspecified scoliosis Spinal region: unspecified Qualified Code(s): M41.9 - Scoliosis, unspecified - Problem List Review Problem List Initiated/Reviewed/Updated: Yes - My Orders Last 24 Hours: My Active Orders 04/14/21 08:00 Amoxicillin/Clavulanate K [Augmentin 875 MG/125 MG] 1 tab PO Q12HR 04/14/21 08:17 [employer] Evaluation and Treatment [CONS] Routine 04/15/21 05:11 CBC WITH AUTO DIFF [HEME] Routine COMPREHENSIVE METABOLIC PN,CMP [CHEM] Routine - Assessment Assessment:: 30 yo female hospital day #3 admitted with sepsis secondary to pneumonia after presenting to the ER due to a prolonged seizure. No seizures since admit. Is doing much better overall. Labs mostly improved, liver enzymes are the exception. - Plan Plan:: #1 Sepsis #2 Aspiration Pneumonia - Did meet sepsis criteria initially, which has now resolved. Repeat lactic acid was back to normal. - Initially concerned that the aspiration was from the seizure and that the seiz ure was unexplained; however, sounds like she has had more longer term swallowing/coughing issues so this very likely is the cause. Nothing else per labwork and no further seizures since admit. - Given absence of fever x 24 hours, will change antibiotics from IV to PO augmentin. - Recheck labs in the am. - Patient will also have a speech eval related to the swallowing concerns. #3 Seizure Disorder #4 [employer]ICE shunt in place - CT head images reviewed by neurosurgery this am with no concerns noted. - Patient is clinically improving. - No further evaluation is warranted from this standpoint. - Seizure felt to be provoked as above. - Home AED's continued. #5 Elevated liver enzymes - Not present on admission, meaning this is likely medication induced. - Will change antibiotics as above. - Recheck in the am. - Will need follow-up and possible u/s as an outpatient if this does not return to normal. 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 Patient will remain on acute today, mainly due to the rapidly increasing liver enzymes and need for further monitoring of this. Not able to do u/s until Monday but this is not a reason by itself for transfer to [place]. Will adjust medications and recheck in the am. Also remove urinary catheter today. Code status is full. She is on lovenox for VTE prophylaxis.
[2021-04-14] MEDS ORDERED: Loperamide 2 MG Cap PO ONE (12:33)
[2021-04-14] MEDS: Enoxaparin 40 MG/0.4 ML Syringe SUBCUT SCH (19:47)
[2021-04-14] MEDS: Sertraline 50 MG Tab PO SCH (19:48)
[2021-04-14] MEDS: Lactobacillus Rhamnosus GG (Probiotic) Cap PO SCH (22:25)
[2021-04-15] MEDS: NS + KCl 20mEq/L 1,000 ML IV SCH (03:40)
[2021-04-15] MEDS: Ondansetron 4 MG/2 ML SDV IV PRN (06:14)
[2021-04-15 08:01] LABS: ANION GAP 14.2 mmol/L (5-15); CHLORIDE,CL 111 mmol/L (98-107); SODIUM,NA 144 mmol/L (136-145)
--- NOTE | 2021-04-15 08:51 | PCM.DCSUM1 ---
Discharge Summary - Hospital Course Brief History: Ms. Correa is a 30 yo female admitted with sepsis secondary to pneumonia after presenting to the ER for evaluation of a prolonged seizure. - Discharge Data Discharge Date: 04/15/21 Discharge Disposition: Home, Self-Care 01 Condition: Stable - Referral to Home Health Primary Care Physician: Dorita Valera MD - Discharge Diagnosis/Problem(s) (1) Sepsis SNOMED Code(s): 71326788 ICD Code: A41.9 - SEPSIS, UNSPECIFIED ORGANISM Status: Acute Current Visit: Yes Qualifiers: Sepsis type: sepsis due to unspecified organism Sepsis acute organ dysfunction status: without acute organ dysfunction Qualified Code(s): A41.9 - Sepsis, unspecified organism (2) Aspiration pneumonia SNOMED Code(s): 592362837 ICD Code: J69.0 - PNEUMONITIS DUE TO INHALATION OF FOOD AND VOMIT Status: Acute Current Visit: Yes Qualifiers: Aspiration pneumonia type: unspecified Laterality: bilateral Lung location: lower lobe of lung Qualified Code(s): J69.0 - Pneumonitis due to inhalation of food and vomit (3) Seizure disorder SNOMED Code(s): 441823952 ICD Code: G40.909 - EPILEPSY, UNSP, NOT INTRACTABLE, WITHOUT STATUS EPILEPTICUS Status: Chronic Priority: Low Current Visit: No Onset Date: ~12/09/16 (4) Ventriculo-peritoneal shunt status SNOMED Code(s): 675924718, 84047047, 108569294 ICD Code: Z98.2 - PRESENCE OF CEREBROSPINAL FLUID DRAINAGE DEVICE Status: Chronic Current Visit: No (5) Elevated liver enzymes SNOMED Code(s): 453566310 ICD Code: R74.8 - ABNORMAL LEVELS OF OTHER SERUM ENZYMES Status: Acute Current Visit: Yes (6) Neurofibromatosis, type 1 SNOMED Code(s): 40191186 ICD Code: Q85.01 - NEUROFIBROMATOSIS, TYPE 1 Status: Chronic Current Visit: No (7) Mild intellectual disability Status: Chronic Current Visit: Yes (8) Spastic diplegia SNOMED Code(s): 273211039 ICD Code: G80.1 - SPASTIC DIPLEGIC CEREBRAL PALSY Status: Chronic Current Visit: Yes (9) Constipation SNOMED Code(s): 41866089 ICD Code: K59.00 - CONSTIPATION, UNSPECIFIED Status: Chronic Current Visit: Yes Qualifiers: Constipation type: unspecified constipation type Qualified Code(s): K59.00 - Constipation, unspecified (10) Depression SNOMED Code(s): 43941822 ICD Code: F32.9 - MAJOR DEPRESSIVE DISORDER, SINGLE EPISODE, UNSPECIFIED Status: Chronic Current Visit: No Qualifiers: Depression Type: unspecified Qualified Code(s): F32.9 - Major depressive disorder, single episode, unspecified (11) Scoliosis SNOMED Code(s): 688141060 ICD Code: M41.9 - SCOLIOSIS, UNSPECIFIED Status: Chronic Current Visit: No Qualifiers: Scoliosis type: unspecified scoliosis Spinal region: unspecified Qualified Code(s): M41.9 - Scoliosis, unspecified - Patient Summary/Data Operative Procedure(s) Performed: none Complications: none Consults: Consultations 04/12/21 23:36 Consult to Case Management/Home School Liaison Officer [CONS] Routine 04/14/21 08:17 JINGLE WRITER Evaluation and Treatment [CONS] Routine Labs Pending at D/C: none Recommended Follow-up Testing/Procedures: CMP, CBC Planned Operative Procedure(s) after DC: none Hospital Course: Patient was admitted and given IV fluids and IV antibiotics. Her mentation progressively improved, as did her labs. She did have 2 chest x-rays that did not really show much as far as pneumonia. However, her CT scan did show some changes and clinically exam/history was consistent with pneumonia. She was able to eat/drink well as of the day prior to discharge. Her catheter was removed yesterday and she has been voiding without issues. She did have some diarrhea that responded well to a single dose of imodium. She was changed to oral antibiotics yesterday without issue. She did have some changes on her CT head that were reviewed with neurosurgery and there were no concerns from their perspective. Her neurologist was also consulted and recommended increasing her keppra dose to 500 mg in the am and 1,000 mg in the pm. Her liver enzymes also progressively increased but then stabilized. This was felt to be seizure/sepsis vs medication induced. She will need follow-up lab after discharge. Her hospitalization has otherwise been uncomplicated and she will be discharged home today in stable condition. - Patient Instructions Diet: Usual Diet as Tolerated Activity: As Tolerated Notify Provider of: Fever, Increased Pain, Swelling and Redness, Nausea and/or Vomiting - Discharge Plan *PRESCRIPTION DRUG MONITORING PROGRAM REVIEWED*: No *COPY OF PRESCRIPTION DRUG MONITORING REPORT IN PATIENT MARTY: No Prescriptions/Med Rec: Amoxicillin/Clavulanate K [Augmentin 875-125 MG] 1 tab PO Q12HR #8 tablet levETIRAcetam [Keppra] 1,000 mg PO BID 180 Days Home Medications: Home Meds Calcium Carbonate [Calcium] 500 mg PO BID 11/12/14 [History] Nitrofurantoin Macrocrystal [Nitrofurantoin] 100 mg PO DAILY 11/12/14 [History] Cranberry 1 each PO DAILY 01/03/16 [History] Multivitamin/Iron/Folic Acid [Sentry Tablet] 1 each PO DAILY 01/03/16 [History] Sennosides/Docusate Sodium [Senna Plus Tablet] 1 tab PO BID 01/04/16 [History] Polyethylene Glycol 3350 [MiraLAX] 17 gm PO MOWEFR 12/09/16 [History] ARIPiprazole [Abilify] 7.5 mg PO DAILY 12/07/18 [History] Potassium Chloride 10 meq PO DAILY #30 capsule.er 03/03/21 [Rx] Phenytoin Sodium Extended [Dilantin] 200 mg PO BID 03/04/21 [History] Cholecalciferol (Vitamin D3) [Vitamin D3] 2,000 unit PO DAILY 04/12/21 [History] Sertraline [Zoloft] 50 mg PO BEDTIME 04/12/21 [History] Amoxicillin/Clavulanate K [Augmentin 875-125 MG] 1 tab PO Q12HR #8 tablet 04/15/21 [Rx] levETIRAcetam [Keppra] 1,000 mg PO BID 180 Days 04/15/21 [Rx] Forms: ED Department Discharge Referrals: Dorita Valera MD [Primary Care Provider] - - Discharge Summary/Plan Comment DC Time >30 min.: No Total # of Minutes for Discharge Time: 25 - General Info Date of Service: 04/15/21 Subjective Update: Patient is feeling well today and would like to go home. Cough is improving. No chest pain or shortness of breath. Eating well. No vomiting. Had diarrhea yesterday that resolved with 1 dose of imodium. No fevers. No seizures. - Review of Systems HEENT: Reports: No Symptoms Pulmonary: Reports: No Symptoms Cardiovascular: Reports: No Symptoms Gastrointestinal: Reports: No Symptoms Genitourinary: Reports: No Symptoms Musculoskeletal: Reports: No Symptoms Skin: Reports: No Symptoms Neurological: Reports: No Symptoms Psychiatric: Reports: No Symptoms - Patient Data Vitals - Most Recent: Last Vital Signs Temp 37.4 C 04/15/21 06:07 Pulse 100 04/15/21 06:07 Resp 18 04/15/21 06:07 BP 120/77 04/15/21 06:07 Pulse Ox 94 L 04/15/21 06:07 Weight - Most Recent: 63.6 kg I&O - Last 24 hours: Intake & Output 04/14/21 04/15/21 04/15/21 22:59 06:59 14:59 Intake Total 1240 324 120 Output Total 600 Balance 640 324 120 Lab Results - Last 24 hrs: Laboratory Results - last 24 hr 04/14/21 04/15/21 04/15/21 Range/Units 06:20 06:52 06:52 WBC 6.8 (4.0-10.0) x10^3/uL RBC 3.49 L (4.00-5.50) x10^6/uL Hgb 11.2 L (12.0-16.0) g/dL Hct 30.9 L (33.0-47.0) % MCV 88.5 (78.0-93.0) fL MCH 32.1 H (26.0-32.0) pg MCHC 36.2 H (32.0-36.0) g/dL RDW Coeff of Prerna 11.4 (10.0-15.0) % Plt Count 152 (130-400) x10^3/uL Immature Gran % (Auto) 0.70 H (0.00-0.43) % Neut % (Auto) 67.2 (50.0-80.0) % Lymph % (Auto) 21.8 L (25.0-50.0) % Mcminn % (Auto) 9.8 (2.0-11.0) % Eos % (Auto) 0.1 (0.0-4.0) % Baso % (Auto) 0.4 (0.2-1.2) % Neut # (Auto) 4.6 (1.8-7.7) x10^3/uL Lymph # (Auto) 1.5 (1.0-4.8) x10^3/uL Mcminn # (Auto) 0.7 (0.0-0.8) x10^3/uL Eos # (Auto) 0.0 (0.0-0.5) x10^3/uL Baso # (Auto) 0.0 (0.0-0.2) x10^3/uL Immature Gran # (Auto) 0.05 (0.00-0.07) x10^3/uL Sodium 144 (136-145) mmol/L Potassium 4.2 (3.5-5.1) mmol/L Chloride 111 H (98-107) mmol/L Carbon Dioxide 23 (21-32) mmol/L Anion Gap 14.2 (5-15) mmol/L BUN 5 L (7-18) mg/dL Creatinine 0.4 L (0.55-1.02) mg/dL Est Cr Clr Drug Dosing 167.03 mL/min Estimated GFR (MDRD) > 60 Glucose 101 H (70-99) mg/dL Calcium 7.1 L (8.5-10.1) mg/dL Corrected Calcium 8.0 L (8.5-10.1) mg/dL Total Bilirubin 0.4 (0.2-1.0) mg/dL AST 252 H (15-37) U/L ALT 295 H (14-59) U/L Alkaline Phosphatase 68 (46-116) U/L Total Protein 5.7 L (6.4-8.2) g/dL Albumin 2.9 L (3.4-5.0) g/dL Globulin 2.8 Albumin/Globulin Ratio 1.04 Phenytoin 6.0 L (10.0-20.0) ug/mL BETY Results - Last 24 hrs: Microbiology 04/12/21 18:30 Aerobic Blood Culture - Preliminary Blood - Venous - Lab Draw NO GROWTH AFTER 2 DAYS Anaerobic Blood Culture - Preliminary NO GROWTH AFTER 2 DAYS 04/12/21 18:26 Aerobic Blood Culture - Preliminary Blood - Venous NO GROWTH AFTER 2 DAYS Anaerobic Blood Culture - Preliminary NO GROWTH AFTER 2 DAYS Med Orders - Current: Current Medications Acetaminophen (Acetaminophen 650 Mg Supp) 650 mg RECTAL Q4H PRN PRN Reason: Mild pain/fever Last Admin: 04/13/21 02:14 Dose: 650 mg Documented by: Acetaminophen (Acetaminophen 325 Mg Tab) 650 mg PO Q4H PRN PRN Reason: FEVER OVER 89 F Last Admin: 04/14/21 19:52 Dose: 650 mg Documented by: Amoxicillin/Clavulanate Potassium (Amoxicillin/Clavulanate K 875-125 Mg Tab) 1 tab PO Q12HR [facility] Last Admin: 04/14/21 19:48 Dose: 1 tab Documented by: Aripiprazole (Aripiprazole 5 Mg Tab) 7.5 mg PO DAILY [facility] Last Admin: 04/14/21 07:38 Dose: 7.5 mg Documented by: Enoxaparin Sodium (Enoxaparin 40 Mg/0.4 Ml Syringe) 40 mg SUBCUT BEDTIME [facility] Last Admin: 04/14/21 19:47 Dose: 40 mg Documented by: Potassium Chloride/Sodium Chloride (Normal Saline With 20 Meq Kcl) 1,000 mls @ 100 mls/hr IV ASDIRECTED [facility] Last Admin: 04/15/21 03:40 Dose: 100 mls/hr Documented by: Lactobacillus Rhamnosus (Lactobacillus Rhamnosus Gg (Probiotic) Cap) 1 cap PO BID@1000,2200 [facility] Last Admin: 04/14/21 22:25 Dose: 1 cap Documented by: Levetiracetam (Levetiracetam 500 Mg Tab) 1,000 mg PO BEDTIME [facility] Last Admin: 04/14/21 19:47 Dose: 1,000 mg Documented by: Levetiracetam (Levetiracetam 500 Mg Tab) 500 mg PO DAILY [facility] Last Admin: 04/14/21 07:39 Dose: 500 mg Documented by: Ondansetron HCl (Ondansetron 4 Mg/2 Ml Sdv) 4 mg IV Q4H PRN PRN Reason: Nausea/Vomiting Last Admin: 04/15/21 06:14 Dose: 4 mg Documented by: Phenytoin Sodium (Phenytoin 100 Mg Cap.Er) 200 mg PO BID [facility] Last Admin: 04/14/21 19:48 Dose: 200 mg Documented by: Potassium Chloride (Potassium Chloride 10 Meq Tab.Er) 10 meq PO DAILY [facility] Last Admin: 04/14/21 07:38 Dose: 10 meq Documented by: Sertraline HCl (Sertraline 50 Mg Tab) 50 mg PO BEDTIME [facility] Last Admin: 04/14/21 19:48 Dose: 50 mg Documented by: Sodium Chloride (Sodium Chloride 0.9% 10 Ml Syringe) 10 ml FLUSH ASDIRECTED PRN PRN Reason: Keep Vein Open Last Admin: 04/13/21 11:41 Dose: 10 ml Documented by: Discontinued Medications Acetaminophen (Acetaminophen 650 Mg Supp) 650 mg RECTAL NOW ONE Stop: 04/12/21 18:52 Last Admin: 04/12/21 19:05 Dose: 650 mg Documented by: Acetaminophen (Acetaminophen 325 Mg Supp) 325 mg RECTAL NOW ONE Stop: 04/12/21 18:54 Last Admin: 04/12/21 19:05 Dose: 325 mg Documented by: Diazepam (Diazepam 10 Mg/2 Ml Syringe) 5 mg IVPUSH STAT ONE Stop: 04/12/21 18:10 Last Admin: 04/12/21 18:15 Dose: 5 mg Documented by: Enoxaparin Sodium (Enoxaparin 40 Mg/0.4 Ml Syringe) 40 mg SUBCUT DAILY [facility] Last Admin: 04/13/21 11:08 Dose: Not Given Documented by: Levetiracetam 500 mg/ Premix 100 mls @ 400 mls/hr IV ONETIME ONE Stop: 04/12/21 18:24 Last Admin: 04/12/21 18:24 Dose: 400 mls/hr Documented by: Levetiracetam 1,000 mg/ Sodium (Chloride) 110 mls @ 400 mls/hr IV ONETIME ONE Stop: 04/12/21 18:24 Last Admin: 04/13/21 00:58 Dose: Not Given Documented by: Sodium Chloride (Normal Saline) 1,000 mls @ 1,000 mls/hr IV ASDIRECTED [facility] Last Admin: 04/12/21 19:15 Dose: 1,000 mls/hr Documented by: Piperacillin Sod/Tazobactam (Sod 4.5 gm/ Sodium Chloride) 100 mls @ 200 mls/hr IV STAT ONE Stop: 04/12/21 19:32 Last Admin: 04/12/21 20:22 Dose: 200 mls/hr Documented by: Vancomycin HCl 1 gm/ Sodium (Chloride) 250 mls @ 250 mls/hr IV STAT ONE Stop: 04/12/21 20:02 Last Admin: 04/12/21 20:29 Dose: 250 mls/hr Documented by: Sodium Chloride (Normal Saline) 1,000 mls @ 1,000 mls/hr IV ASDIRECTED [facility] Last Admin: 04/12/21 20:28 Dose: 1,000 mls/hr Documented by: Vancomycin HCl 1 gm/ Sodium (Chloride) 250 mls @ 250 mls/hr IV Q12H [facility] Last Admin: 04/14/21 18:32 Dose: Not Given Documented by: Piperacillin Sod/Tazobactam (Sod 4.5 gm/ Sodium Chloride) 100 mls @ 200 mls/hr IV ONETIME ONE Stop: 04/12/21 04:29 Last Admin: 04/13/21 00:59 Dose: Not Given Documented by: Sodium Chloride (Normal Saline) 1,000 mls @ 100 mls/hr IV ASDIRECTED [facility] Last Admin: 04/12/21 22:42 Dose: 100 mls/hr Documented by: Piperacillin Sod/Tazobactam (Sod 3.375 gm/ Sodium Chloride) 100 mls @ 25 mls/hr IV Q8H [facility] Stop: 04/13/21 16:00 Last Admin: 04/13/21 11:54 Dose: 25 mls/hr Documented by: Piperacillin Sod/Tazobactam (Sod 4.5 gm/ Sodium Chloride) 100 mls @ 200 mls/hr IV ONETIME ONE Stop: 04/13/21 04:29 Last Admin: 04/13/21 03:33 Dose: 200 mls/hr Documented by: Piperacillin Sod/Tazobactam (Sod 3.375 gm/ Sodium Chloride) 100 mls @ 35 mls/hr IV Q8H [facility] Last Admin: 04/14/21 04:59 Dose: 35 mls/hr Documented by: Iopamidol (Iopamidol 612 Mg/Ml 100 Ml Bottle) 100 ml IVPUSH ONETIME ONE Stop: 04/12/21 19:21 Last Admin: 04/12/21 20:14 Dose: 100 ml Documented by: Loperamide HCl (Loperamide 2 Mg Cap) 2 mg PO ONETIME ONE Stop: 04/14/21 12:34 Last Admin: 04/14/21 12:48 Dose: 2 mg Documented by: Piperacillin Sod/Tazobactam Sod (Piperacillin/Tazobactam 4.5 Gm Vial) Confirm Administered Dose 4.5 gm .ROUTE .[facility] ONE Stop: 04/12/21 19:24 Last Admin: 04/12/21 19:56 Dose: Not Given Documented by: Vancomycin HCl (Pharmacy To Dose - Vancomycin) 1 dose .XX ASDIRECTED CARLOS - Exam General: Reports: Alert, Oriented, Cooperative, No Acute Distress HEENT: Reports: Mucous Membr. Moist/[place] Neck: Reports: Supple, Trachea Midline, No Thyromegaly. Denies: Lymphadenopathy Lungs: Reports: Clear to Auscultation, Normal Respiratory Effort Cardiovascular: Reports: Regular Rate, Regular Rhythm, No Murmurs GI/Abdominal Exam: Normal Bowel Sounds, Soft, Non-Tender, No Organomegaly, No Distention, No Mass Extremities: Normal Inspection, Normal Range of Motion, Non-Tender, No Pedal [place] Skin: Reports: Warm, Dry, Intact Neurological: Reports: No New Focal Deficit
[2021-04-15] MEDS: Amoxicillin/Clavulanate K 875-125 MG Tab PO SCH (09:11)
[2021-04-15] MEDS: ARIPiprazole 5 MG Tab PO SCH (09:12)
[2021-04-15] MEDS: Phenytoin 100 MG Cap.ER PO SCH (09:12)
[2021-04-15] MEDS: levETIRAcetam 500 MG Tab PO SCH (09:12)
[2021-04-15] MEDS: Lactobacillus Rhamnosus GG (Probiotic) Cap PO SCH (09:13)
[2021-04-15] MEDS: Potassium Chloride 10 MEQ Tab.ER PO SCH (09:13)
[2021-04-15] MEDS ORDERED: Calcium Carbonate 750 MG Tab.Chew PO ONE (09:17)
[2021-04-15 10:45] VITALS: BP 116/75; PULSE 106
== END 2021-04-15 15:10 | disposition home or self-care (01) | DRG 871 ==
LOC: VM.ED 18:05 → VM.MS 21:48
PROVIDERS: ADMIT Family Medicine; ATTEND Family Medicine
DX: A41.9 Sepsis, unspecified organism (principal); J69.0 Pneumonitis due to inhalation of food and vomit; G40.901 Epilepsy, unspecified, not intractable, with status epilepticus; H54.7 Unspecified visual loss; M41.85 Other forms of scoliosis, thoracolumbar region; F70 Mild intellectual disabilities; J18.9 Pneumonia, unspecified organism; G82.50 Quadriplegia, unspecified; G80.1 Spastic diplegic cerebral palsy; Q07.02 Arnold-Chiari syndrome with hydrocephalus; E87.1 Hypo-osmolality and hyponatremia; G40.909 Epilepsy, unspecified, not intractable, without status epilepticus; Z98.2 Presence of cerebrospinal fluid drainage device; R74.8 Abnormal levels of other serum enzymes; Q85.01 Neurofibromatosis, type 1; K59.00 Constipation, unspecified; F32.9 Major depressive disorder, single episode, unspecified; M41.9 Scoliosis, unspecified; Z79.899 Other long term (current) drug therapy; Z20.822 Contact with and (suspected) exposure to COVID-19; H54.8 Legal blindness, as defined in USA; M40.209 Unspecified kyphosis, site unspecified; M81.0 Age-related osteoporosis without current pathological fracture; E55.9 Vitamin D deficiency, unspecified; H91.90 Unspecified hearing loss, unspecified ear; Z87.440 Personal history of urinary (tract) infections; E78.5 Hyperlipidemia, unspecified; G89.29 Other chronic pain; M54.9 Dorsalgia, unspecified; F79 Unspecified intellectual disabilities
CPT/HCPCS: 0240U; 36415; 36600; 70450; 70491; 71045; 71260; 74177; 80053; 80177; 80185; 81001; 82803; 83605; 83735; 84100; 84145; 84443; 84484; 85025; 85610; 85730; 86140; 87040; 87651-QW; 92610-GN; 93005; 93010; 99284; A9270-GY; J1650; J1953; J2405; J2543; J3360; J3370; J3480; J7030; J7050; Q9967

== ENCOUNTER 2021-09-25 11:43 | Emergency (ER) | payer MEDICARE, MEDICAID ==
[2021-09-25] MEDS ORDERED: Sodium Chloride 0.9% 10 ML Syringe FLUSH PRN (12:03)
[2021-09-25] MEDS ORDERED: LORazepam 2 MG/ML SDV ONE ×2 (12:08→12:19)
[2021-09-25] MEDS ORDERED: LORazepam 2 MG/ML SDV IM ONE (12:08)
[2021-09-25] MEDS: Sodium Chloride 0.9% 1,000 ML IV ONE ×2 (12:12→13:26)
[2021-09-25] MEDS ORDERED: LORazepam 2 MG/ML SDV IVPUSH ONE (12:19)
[2021-09-25] MEDS ORDERED: cefTRIAXone 1 GM Vial IVPUSH ONE ×2 (12:47→13:42)
[2021-09-25 12:51] LABS: CHLORIDE,CL 100 mmol/L (98-107); SODIUM,NA 138 mmol/L (136-145)
[2021-09-25] MEDS ORDERED: Sodium Chloride 0.9% 1,000 ML IV ONE (13:25)
[2021-09-25 14:18] LABS: CORONAVIRUS COVID-19 NAA NEGATIVE (NEGATIVE)
[2021-09-25 19:37] VITALS: BP 96/54; PULSE 138
== END 2021-09-25 14:20 | disposition short-term general hospital (02) ==
LOC: VM.ED 11:43
DX: G40.901 Epilepsy, unspecified, not intractable, with status epilepticus (principal); R56.00 Simple febrile convulsions; E78.00 Pure hypercholesterolemia, unspecified; Z79.899 Other long term (current) drug therapy; Z20.822 Contact with and (suspected) exposure to COVID-19
CPT/HCPCS: 0240U; 36415; 51702; 70450; 71045; 80053; 81001; 83605; 83735; 84145; 85025; 86140; 87040; 96365; 96375; 99284; 99285-25; J0696; J2060; J3360; J7030; Q2009

== ENCOUNTER 2021-11-25 19:15 | Inpatient (IN) | payer MEDICARE, MEDICAID ==
[2021-11-25] MEDS ORDERED: LORazepam 2 MG/ML SDV IVPUSH ONE (19:31)
[2021-11-25] MEDS ORDERED: LORazepam 2 MG/ML SDV ONE (19:31)
[2021-11-25] MEDS ORDERED: levETIRAcetam in NaCl (iso-os) 1,000 MG in Premix Bag 1 BAG IV ONE ×2 (19:31)
[2021-11-25 21:00] LABS: CHLORIDE,CL 99 mmol/L (98-107); SODIUM,NA 135 mmol/L (136-145)
[2021-11-25 21:01] LABS: ANION GAP 20.5 mmol/L (5-15)
[2021-11-25] MEDS ORDERED: Digoxin 250 MCG Tab PO ONE (22:11)
[2021-11-25] MEDS ORDERED: Furosemide 20 MG Tab PO ONE (22:11)
[2021-11-25] MEDS ORDERED: Sertraline 50 MG Tab PO ONE (22:11)
[2021-11-25] MEDS ORDERED: Phenytoin 100 MG Cap.ER PO STA (22:11)
[2021-11-25] MEDS ORDERED: levETIRAcetam 500 MG Tab PO ONE (22:13)
[2021-11-25 22:47] LABS: PTT,PARTIAL THROMBOPLSTIN TIME 22.5 SEC (20.5-30.9)
[2021-11-26] MEDS ORDERED: Ondansetron 4 MG/2 ML SDV IV ONE (00:31)
[2021-11-26] MEDS ORDERED: diphenhydrAMINE 50 MG/ML SDV IVPUSH ONE (00:31)
[2021-11-26] MEDS ORDERED: levETIRAcetam Soln 500 MG/5 ML Cup PO ONE (01:10)
[2021-11-26] MEDS ORDERED: Flumazenil 0.1 MG/ML 5 ML MDV IVPUSH PRN (01:30)
[2021-11-26] MEDS ORDERED: LORazepam 2 MG/ML SDV IVPUSH PRN (01:30)
[2021-11-26] MEDS ORDERED: Phenytoin 100 MG Cap.ER ONE (01:55)
[2021-11-26] MEDS: Acetaminophen 325 MG Tab PO PRN ×2 (05:41→18:32)
[2021-11-26 08:08] LABS: CHLORIDE,CL 98 mmol/L (98-107); SODIUM,NA 132 mmol/L (136-145)
[2021-11-26 08:09] LABS: ANION GAP 14.8 mmol/L (5-15)
[2021-11-26] MEDS ORDERED: Furosemide 20 MG Tab PO PRN (09:38)
[2021-11-26] MEDS ORDERED: Polyethylene Glycol 3350 Powder 17 GM Packet PO SCH (10:00)
[2021-11-26] MEDS: Digoxin 250 MCG Tab PO SCH (10:15)
[2021-11-26] MEDS: Metoprolol Succinate 50 MG Tab.ER PO SCH (10:15)
[2021-11-26] MEDS: Phenytoin 100 MG Cap.ER PO SCH ×2 (10:15→22:09)
[2021-11-26] MEDS: Aspirin 81 MG Tab.Chew CHEW SCH (10:15)
[2021-11-26] MEDS: ARIPiprazole 5 MG Tab PO SCH (10:15)
[2021-11-26] MEDS: Pantoprazole 20 MG Tab, Delayed Release PO SCH (10:16)
[2021-11-26] MEDS: Cranberry 500 MG Cap PO SCH (10:16)
[2021-11-26] MEDS: Lisinopril 5 MG Tab PO SCH (10:16)
[2021-11-26] MEDS: Furosemide 20 MG Tab PO SCH (10:16)
[2021-11-26] MEDS: Multivitamins with Iron/Calcium/Folic Acid/Minerals Tab PO SCH (10:16)
[2021-11-26] MEDS: levETIRAcetam 500 MG Tab PO SCH ×2 (10:17→22:10)
[2021-11-26] MEDS: Sertraline 50 MG Tab PO SCH (22:10)
[2021-11-26] MEDS: Calcium Carbonate/Vitamin D3 1250 MG-5 MCG Tab PO SCH (22:12)
[2021-11-27] MEDS: Ondansetron 4 MG/2 ML SDV IV PRN ×2 (02:46→09:55)
[2021-11-27] MEDS ORDERED: Ondansetron 4 MG Tab.DIS PO PRN (08:27)
[2021-11-27 09:12] LABS: ANION GAP 14.7 mmol/L (5-15); CHLORIDE,CL 91 mmol/L (98-107); SODIUM,NA 124 mmol/L (136-145)
[2021-11-27] MEDS ORDERED: Sodium Chloride 3% 50 ML IV SCH (09:45)
[2021-11-27] MEDS: Lisinopril 5 MG Tab PO SCH (10:08)
[2021-11-27] MEDS: Aspirin 81 MG Tab.Chew CHEW SCH (10:08)
[2021-11-27] MEDS: Phenytoin 100 MG Cap.ER PO SCH ×2 (10:09→20:19)
[2021-11-27] MEDS: Multivitamins with Iron/Calcium/Folic Acid/Minerals Tab PO SCH (10:09)
[2021-11-27] MEDS: Furosemide 20 MG Tab PO SCH (10:09)
[2021-11-27] MEDS: Pantoprazole 20 MG Tab, Delayed Release PO SCH (10:10)
[2021-11-27] MEDS: Digoxin 250 MCG Tab PO SCH (10:10)
[2021-11-27] MEDS: levETIRAcetam 500 MG Tab PO SCH ×2 (10:10→20:20)
[2021-11-27] MEDS: Cholecalciferol (Vitamin D3) 25 MCG Tab PO SCH (10:11)
[2021-11-27] MEDS: Cranberry 500 MG Cap PO SCH (10:11)
[2021-11-27] MEDS: Metoprolol Succinate 50 MG Tab.ER PO SCH (10:11)
[2021-11-27] MEDS: ARIPiprazole 5 MG Tab PO SCH (10:11)
[2021-11-27] MEDS: Calcium Carbonate/Vitamin D3 1250 MG-5 MCG Tab PO SCH ×2 (12:52→20:20)
[2021-11-27] MEDS: Potassium Chloride 10 MEQ Tab.ER PO SCH ×2 (14:11→17:51)
[2021-11-27] MEDS: Heparin Sodium 5,000 Units/ML Vial SUBCUT SCH (14:11)
[2021-11-27] MEDS: Lactobacillus Rhamnosus GG (Probiotic) Cap PO SCH (14:11)
[2021-11-27] MEDS ORDERED: Sodium Chloride 3% 50 ML IV STA (16:27)
[2021-11-27] MEDS: Acetaminophen 325 MG Tab PO PRN (16:40)
[2021-11-27] MEDS ORDERED: Magnesium Sulfate/Water 2 GM in Premix Bag 1 BAG IV ONE (17:26)
[2021-11-27] MEDS: ALPRAZolam 0.25 MG Tab PO PRN (20:26)
[2021-11-27 21:22] LABS: SODIUM,NA 125 mmol/L (136-145)
[2021-11-28 01:45] LABS: SODIUM,NA 133 mmol/L (136-145)
[2021-11-28 07:52] LABS: CHLORIDE,CL 101 mmol/L (98-107); SODIUM,NA 135 mmol/L (136-145)
[2021-11-28] MEDS: Calcium Carbonate/Vitamin D3 1250 MG-5 MCG Tab PO SCH ×2 (08:16→21:23)
[2021-11-28] MEDS: Multivitamins with Iron/Calcium/Folic Acid/Minerals Tab PO SCH (08:16)
[2021-11-28] MEDS: Phenytoin 100 MG Cap.ER PO SCH ×2 (08:16→21:24)
[2021-11-28] MEDS: Lactobacillus Rhamnosus GG (Probiotic) Cap PO SCH (08:16)
[2021-11-28] MEDS: Furosemide 20 MG Tab PO SCH (08:17)
[2021-11-28] MEDS: Aspirin 81 MG Tab.Chew CHEW SCH (08:17)
[2021-11-28] MEDS: ARIPiprazole 5 MG Tab PO SCH (08:17)
[2021-11-28] MEDS: levETIRAcetam 500 MG Tab PO SCH ×2 (08:17→21:23)
[2021-11-28] MEDS: Cranberry 500 MG Cap PO SCH (08:18)
[2021-11-28] MEDS: Heparin Sodium 5,000 Units/ML Vial SUBCUT SCH ×2 (08:18→21:23)
[2021-11-28] MEDS: Pantoprazole 20 MG Tab, Delayed Release PO SCH (08:18)
[2021-11-28] MEDS: Cholecalciferol (Vitamin D3) 25 MCG Tab PO SCH (08:18)
[2021-11-28] MEDS: Potassium Chloride 10 MEQ Tab.ER PO SCH ×2 (08:18→18:34)
[2021-11-28] MEDS: Metoprolol Succinate 50 MG Tab.ER PO SCH (08:19)
[2021-11-28] MEDS: Digoxin 250 MCG Tab PO SCH (08:19)
[2021-11-28] MEDS: Lisinopril 5 MG Tab PO SCH (08:19)
[2021-11-29] MEDS: ALPRAZolam 0.25 MG Tab PO PRN (03:28)
[2021-11-29] MEDS ORDERED: Metoprolol Tartrate 25 MG Tab PO ONE (03:54)
[2021-11-29 07:32] LABS: ANION GAP 15.9 mmol/L (5-15); CHLORIDE,CL 98 mmol/L (98-107); SODIUM,NA 132 mmol/L (136-145)
[2021-11-29] MEDS: Phenytoin 100 MG Cap.ER PO SCH ×2 (08:08→21:23)
[2021-11-29] MEDS: ARIPiprazole 5 MG Tab PO SCH (08:08)
[2021-11-29] MEDS: Cranberry 500 MG Cap PO SCH (08:09)
[2021-11-29] MEDS: Pantoprazole 20 MG Tab, Delayed Release PO SCH (08:09)
[2021-11-29] MEDS: Furosemide 20 MG Tab PO SCH (08:09)
[2021-11-29] MEDS: Lactobacillus Rhamnosus GG (Probiotic) Cap PO SCH (08:09)
[2021-11-29] MEDS: Aspirin 81 MG Tab.Chew CHEW SCH (08:09)
[2021-11-29] MEDS: Cholecalciferol (Vitamin D3) 25 MCG Tab PO SCH (08:09)
[2021-11-29] MEDS: Potassium Chloride 10 MEQ Tab.ER PO SCH ×2 (08:09→17:55)
[2021-11-29] MEDS: Multivitamins with Iron/Calcium/Folic Acid/Minerals Tab PO SCH (08:10)
[2021-11-29] MEDS: levETIRAcetam 500 MG Tab PO SCH ×2 (08:10→21:22)
[2021-11-29] MEDS: Calcium Carbonate/Vitamin D3 1250 MG-5 MCG Tab PO SCH ×2 (08:10→21:23)
[2021-11-29] MEDS: Heparin Sodium 5,000 Units/ML Vial SUBCUT SCH ×2 (08:10→21:22)
[2021-11-29] MEDS: Lisinopril 5 MG Tab PO SCH (08:13)
[2021-11-29] MEDS: Metoprolol Succinate 50 MG Tab.ER PO SCH (08:13)
[2021-11-29] MEDS: Digoxin 250 MCG Tab PO SCH (08:13)
[2021-11-29] MEDS: Acetaminophen 325 MG Tab PO PRN ×2 (12:26→18:55)
[2021-11-29] MEDS ORDERED: cefTRIAXone 1 GM Vial IVPUSH ONE (13:12)
[2021-11-29] MEDS: Sodium Chloride 0.9% 250 ML IV SCH ×2 (20:18→21:29)
[2021-11-29] MEDS ORDERED: Sodium Chloride 0.9% 250 ML IV SCH ×2 (21:15→22:45)
[2021-11-29] MEDS: Sertraline 50 MG Tab PO SCH (21:23)
[2021-11-30] MEDS: Acetaminophen 325 MG Tab PO PRN ×2 (00:53→10:17)
[2021-11-30 07:24] LABS: CHLORIDE,CL 100 mmol/L (98-107); SODIUM,NA 133 mmol/L (136-145)
[2021-11-30 07:35] LABS: ANION GAP 15.4 mmol/L (5-15)
[2021-11-30] MEDS: Potassium Chloride 10 MEQ Tab.ER PO SCH (08:11)
[2021-11-30] MEDS: Multivitamins with Iron/Calcium/Folic Acid/Minerals Tab PO SCH (08:11)
[2021-11-30] MEDS: Cranberry 500 MG Cap PO SCH (08:11)
[2021-11-30] MEDS: levETIRAcetam 500 MG Tab PO SCH (08:12)
[2021-11-30] MEDS: Cholecalciferol (Vitamin D3) 25 MCG Tab PO SCH (08:12)
[2021-11-30] MEDS: Calcium Carbonate/Vitamin D3 1250 MG-5 MCG Tab PO SCH (08:12)
[2021-11-30] MEDS: Pantoprazole 20 MG Tab, Delayed Release PO SCH (08:12)
[2021-11-30] MEDS: Metoprolol Succinate 50 MG Tab.ER PO SCH (08:12)
[2021-11-30] MEDS: Aspirin 81 MG Tab.Chew CHEW SCH (08:12)
[2021-11-30] MEDS: Lactobacillus Rhamnosus GG (Probiotic) Cap PO SCH (08:12)
[2021-11-30] MEDS: Phenytoin 100 MG Cap.ER PO SCH (08:12)
[2021-11-30] MEDS: ARIPiprazole 5 MG Tab PO SCH (08:13)
[2021-11-30] MEDS: Digoxin 250 MCG Tab PO SCH (08:13)
[2021-11-30] MEDS: Heparin Sodium 5,000 Units/ML Vial SUBCUT SCH (08:13)
[2021-11-30] MEDS: Furosemide 20 MG Tab PO SCH (08:15)
[2021-11-30] MEDS: Lisinopril 5 MG Tab PO SCH (08:15)
[2021-11-30] MEDS ORDERED: Sodium Chloride 0.9% 500 ML IV ONE ×4 (10:00→14:20)
[2021-11-30] MEDS ORDERED: cefTRIAXone 1 GM Vial IVPUSH SCH (10:00)
[2021-11-30] MEDS ORDERED: metroNIDAZOLE/Normal Saline 500 MG in Premix Bag 1 BAG IV SCH (10:00)
[2021-11-30 13:34] VITALS: PULSE 101
[2021-11-30] MEDS ORDERED: VANCOmycin 1.25 GM/250 ML 250 ML IV ONE (14:15)
[2021-11-30 14:58] VITALS: BP 86/53
[2021-11-30] MEDS ORDERED: Phenytoin 100 MG Cap.ER PO SCH (21:00)
[2021-12-01] MEDS ORDERED: Phenytoin 100 MG Cap.ER PO SCH (09:00)
== END 2021-11-30 14:50 | disposition short-term general hospital (02) | DRG 100 ==
LOC: VM.ED 19:15 → VM.MS 11-26 00:30 → OBSVTOIN 11-26 12:54
PROVIDERS: ADMIT Nurse Practitioner Family; ATTEND Family Medicine
DX: G40.909 Epilepsy, unspecified, not intractable, without status epilepticus (principal); A41.9 Sepsis, unspecified organism; I47.1 Supraventricular tachycardia; E87.1 Hypo-osmolality and hyponatremia; L03.114 Cellulitis of left upper limb; H54.7 Unspecified visual loss; G91.1 Obstructive hydrocephalus; G82.50 Quadriplegia, unspecified; I50.42 Chronic combined systolic (congestive) and diastolic (congestive) heart failure; K59.00 Constipation, unspecified; E87.6 Hypokalemia; E78.5 Hyperlipidemia, unspecified; R11.10 Vomiting, unspecified; E78.00 Pure hypercholesterolemia, unspecified; K59.09 Other constipation; R19.7 Diarrhea, unspecified; F70 Mild intellectual disabilities; M81.0 Age-related osteoporosis without current pathological fracture; E55.9 Vitamin D deficiency, unspecified; Z98.2 Presence of cerebrospinal fluid drainage device; Z79.82 Long term (current) use of aspirin; Z79.899 Other long term (current) drug therapy; Q85.01 Neurofibromatosis, type 1
CPT/HCPCS: 36415; 70450; 71045; 80048; 80053; 80162; 80177; 80185; 81001; 82550; 83605; 83690; 83735; 83880; 83930; 83935; 84145; 84295; 84484; 85025; 85610; 85730; 86140; 87040; 87086; 87088; 87186; 87493; 93005; 96374; 96375; 97162-GP; 99220; 99285-25; A9270-GY; J0696; J1644; J1953; J2060; J2405; J3370; J3475; J3490; J7030; J7040; J7050; J7131